=== PATIENT | male | born 1945 | race Caucasian/White ===

== ENCOUNTER 2022-12-13 09:47 | Inpatient (IN) ==
[2022-12-13] MEDS ORDERED: methylPREDNISolone 125 MG/2 ML VIAL IV STA (10:10)
[2022-12-13] MEDS ORDERED: ALBUT/IPRATROP 3MG/0.5MG NEB 3 ML VIAL NEB ONE (10:10)
--- NOTE | 2022-12-13 10:18 | Emergency Department Note ---
History of Present Illness General Chief Complaint: Shortness of Breath/Dyspnea Stated Complaint: COUGH, SHORTNESS OF BREATH, INSOMNIA Time Seen by Provider: 12/13/22 10:01 History of Present Illness Provider Complaint: shortness of breath and cough Onset (ago): day(s) (6) Consistency/Duration: + progressively worsening Maximum Pain Intensity: 5 Relieved By: + nothing Exacerbated By: + exertion and + coughing Context: + recent illness Associated symptoms: + fever, + cough, + wheezing, + sputum production and + chest congestion; no chest pain, no pain with inspiration, no hemoptysis or no rash Related Data Home oxygen amount: none Home Medications Medication Instructions Recorded Confirmed Type aspirin 81 mg tablet,delayed 81 mg PO QPM 03/17/19 12/13/22 History release (Aspir-) diphenoxylate-atropine 2.5 1 tab PO Q6H PRN diarrhea #120 tabs 10/20/19 12/13/22 Rx mg-0.025 mg tablet Auto Titrating CPAP #1 ea 10/21/21 12/11/22 Rx albuterol sulfate 90 mcg/actuation 1 - 2 inh inhalation QID #18 grams 12/02/21 12/13/22 Rx aerosol inhaler glipizide 5 mg tablet 5 mg PO BID #180 tabs 12/29/21 12/13/22 Rx pen needle, diabetic 32 gauge x #100 ea 01/28/22 12/11/22 Rx 5/32" CPAP Machine #1 ea 04/30/22 12/11/22 Rx clopidogrel 75 mg tablet (Plavix) 75 mg PO DAILY #90 tabs 07/22/22 12/13/22 Rx metformin 500 mg tablet 1,000 mg PO BID #120 tabs 08/03/22 12/13/22 Rx amlodipine 10 mg tablet 10 mg PO QAM Hypertension #90 tabs 09/01/22 12/13/22 Rx atorvastatin 40 mg tablet 40 mg PO PM #90 tabs 09/01/22 12/13/22 Rx lisinopril 40 mg tablet 40 mg PO DAILY #90 tabs 09/14/22 12/13/22 Rx insulin aspart U-100 100 unit/mL 19 unit (0.19 mL) subcut TID #15 mL 10/16/22 12/13/22 Rx (3 mL) subcutaneous pen (Novolog FlexPen U-100 Insulin aspart) hydrochlorothiazide 12.5 mg tablet 12.5 mg PO TID #90 tabs 10/19/22 12/13/22 Rx blood sugar diagnostic (OneTouch See Rx Instructions .Route 10/26/22 12/11/22 Rx Ultra Test strips) .COMPLEX #200 ea insulin glargine U-300 conc 300 54 unit (0.18 mL) subcut .qhs #3 mL 11/10/22 12/13/22 Rx unit/mL (3 mL) subcutaneous pen (Toujeo Max U-300 SoloStar) tamsulosin 0.4 mg capsule (Flomax) 0.8 mg PO QPM #180 caps 11/23/22 12/13/22 Rx atenolol 25 mg tablet 25 mg PO QAM #90 tabs 12/01/22 12/13/22 Rx doxycycline hyclate 100 mg capsule 100 mg PO BID 7 days #14 caps 12/11/22 12/13/22 Rx erythromycin 5 mg/gram (0.5 %) eye 1 applic ophthalmic (eye) Q6H 7 12/11/22 12/13/22 Rx ointment days #3.5 grams Allergies Allergy/AdvReac Type Severity Reaction Status Date / Time amoxicillin [From Augmentin] AdvReac Unknown GI upset Verified 12/11/22 15:39 clavulanic acid AdvReac Unknown GI upset Verified 12/11/22 15:39 [From Augmentin] Past Med/Surg History Medical History Bowel incontinence BPH (benign prostatic hyperplasia) Cancer COLO-RECTAL Cardiac murmur A CHILD Chronic diarrhea Coronary artery disease s/p cath x2, 3 stents Hyperlipidemia Kidney stones HX Osteoarthritis Surgical History History of bowel resection WITH ILEOSTOMY-CHEMO/RADIATION 2010 History of cardiac cath 11/2016 1 STENT 05/2017 2 STENTS-F/U DR CHACON History of herniorrhaphy History of reversal of ileostomy History of total hip arthroplasty LEFT History of vascular access device PORT PLACEMENT AND REMOVAL Previous back surgery LOWER BACK Status post insertion of spinal cord stimulator FOR BOWEL [id number] WILL BRING REMOTE Family History Son Family history of diabetes mellitus Mother Family history of diabetes mellitus Sister Breast cancer Denies family history of Ovarian cancer Prostate cancer Myocardial infarction Colorectal cancer Social History Smoking Status: Never smoker Second Hand Exposure: No; Do You Dip or Chew Tobacco: No; Hx Alcohol Use: No Hx Substance Use: No Preferred Language: Thai Communication Ability: Effective Visual Impairment: No Limitations Hearing Ability: Hard of Hearing Book Packer Required: No Beliefs That Will Affect Care: None marital status: Current Living Situation: Spouse current occupational status: retired Feels Safe at Home: Yes Childhood Exposure to Second-Hand Smoke: Yes Diet: regular Diet Comment: regular Dental Care, Regularly: No Physical Activity Frequency: Does not Exercise Seatbelt Use: always Sunscreen Use: No Assistive Devices: CPAP, Glasses and Hearing Aid - Left Physical Exam Vital Signs: Vital Signs - 24 hr 12/13/22 09:53 12/13/22 10:07 12/13/22 10:08 Temperature 36.6 C Temperature Source Oral Pulse Rate 76 Pulse Rate [Apical ] 82 Pulse Rhythm Pulse Rhythm [Apic al] Respiratory Rate 30 H 35 H Respiratory Effort / Characteristics Respiratory Depth Respiratory Patter n Blood Pressure 125/70 Blood Pressure [Ri ght Arm] 142/74 H Blood Pressure Monika n 88 Blood Pressure Monika n [Right Arm] 96 Blood Pressure Pos ition [Right Arm] Pulse Oximetry 90 86 L 92 Oxygen Delivery Me thod Room Air Nasal Cannula Nasal Cannula Oxygen Flow Rate 0 4 Fraction of Inspir ed Oxygen SaO2/FiO2 Ratio Sepsis New/Unexpla ined Change in Men rylee Status No Sepsis Action Take n by Nursing No Action Required Oxygen Flow Rate - Titration 4 Pulse Oximetry Pos t Tiitration 93 12/13/22 10:17 12/13/22 10:40 12/13/22 10:40 Temperature Temperature Source Pulse Rate 73 82 Pulse Rate [Apical ] Pulse Rhythm Regular Pulse Rhythm [Apic al] Respiratory Rate 32 H Respiratory Effort / Characteristics Spontaneous Labore d Respiratory Depth Deep Respiratory Patter n Regular Blood Pressure Blood Pressure [Ri ght Arm] Blood Pressure Monika n Blood Pressure Monika n [Right Arm] Blood Pressure Pos ition [Right Arm] Pulse Oximetry 97 Oxygen Delivery Me thod Nasal Cannula Oxygen Flow Rate 4 Fraction of Inspir ed Oxygen SaO2/FiO2 Ratio Sepsis New/Unexpla ined Change in Men rylee Status Sepsis Action Take n by Nursing Oxygen Flow Rate - Titration Pulse Oximetry Pos t Tiitration 12/13/22 11:03 12/13/22 11:52 12/13/22 11:56 Temperature Temperature Source Pulse Rate 83 Pulse Rate [Apical ] 89 83 Pulse Rhythm Pulse Rhythm [Apic al] Respiratory Rate 45 H 28 H 27 H Respiratory Effort / Characteristics Spontaneous Grunti ng Labored Short o f Breath Spontaneous Labore d Short of Breath Spontaneous Labore d Respiratory Depth Deep Deep Deep Respiratory Patter n Tachypnea Tachypnea Tachypnea Blood Pressure Blood Pressure [Ri ght Arm] 134/68 122/61 Blood Pressure Monika n Blood Pressure Monika n [Right Arm] 90 81 Blood Pressure Pos ition [Right Arm] Sitting Sitting Pulse Oximetry 93 98 96 Oxygen Delivery Me thod Nasal Cannula BiPAP Oxygen Flow Rate 4 Fraction of Inspir ed Oxygen 40 40 SaO2/FiO2 Ratio 240 Sepsis New/Unexpla ined Change in Men rylee Status Sepsis Action Take n by Nursing Oxygen Flow Rate - Titration Pulse Oximetry Pos t Tiitration 12/13/22 13:41 Temperature Temperature Source Pulse Rate Pulse Rate [Apical ] 76 Pulse Rhythm Pulse Rhythm [Apic al] Regular Respiratory Rate 24 Respiratory Effort / Characteristics Spontaneous Labore d Respiratory Depth Deep Respiratory Patter n Regular Blood Pressure Blood Pressure [Ri ght Arm] 121/71 Blood Pressure Monika n Blood Pressure Monika n [Right Arm] 87 Blood Pressure Pos ition [Right Arm] Pulse Oximetry 97 Oxygen Delivery Me thod BiPAP Oxygen Flow Rate Fraction of Inspir ed Oxygen 40 SaO2/FiO2 Ratio 242 Sepsis New/Unexpla ined Change in Men rylee Status Sepsis Action Take n by Nursing Oxygen Flow Rate - Titration Pulse Oximetry Pos t Tiitration Physical Exam: Physical Exam HENT: Exam performed. - Head: Normocephalic and atraumatic. EYES: Conjunctivae and EOM are normal. Right eye exhibits no discharge. Left eye exhibits no discharge. No scleral icterus. NECK: Normal range of motion. Neck supple. No JVD present. CV: Normal rate, regular rhythm, normal heart sounds and intact distal pulses. There is no peripheral edema. Palpable radial pulses bue. PULM/CHEST: Tachypneic. Wheezes bilaterally. No stridor. ABD: The abdomen is soft. There is no tenderness. NEURO: Motor and sensation grossly intact. SKIN: Diaphoretic. Course Course 1001: The patient was evaluated in room B8. A complete history and physical exam was performed Cardiac monitoring: An order was placed for continuous cardiac monitoring. The monitor shows a rate of 80 with sinus rhythm interpreted by me Patient hypoxic on room air tachypneic diaphoretic and wheezing. Patient was placed on supplemental oxygen via nasal cannula which improved his oxygen saturation. DuoNeb treatment hour-long and IV steroids ordered for the patient. 1036: Patient on hour-long DuoNeb treatment tolerating it well. 1056: Patient still tolerating hour-long DuoNeb lab his tachypnea appears to be improving and his lungs sound less tight. Chest x-ray formal read is a multifocal pneumonia. Chest x-ray reviewed by me does show bilateral groundglas s opacities multifocal pneumonia similar in appearance to COVID infections. Patient placed on respiratory precautions. Patient was on doxycycline outpatient will be started on Zosyn lactic acid and blood cultures also ordered on the patient. CTA of the chest will also be ordered on the patient. 1147: BioFire negative for any viral infections including COVID. Patient still tachypneic switched to BiPAP. Given the COVID is negative the patient is having diffuse expiratory wheezes CT of the chest was canceled. 1213: Patient's work of breathing and respiratory rate have improved with BiPAP. Lactic acid 4.2. 30 cc/kg normal saline bolus ordered for the patient. Vancomycin also ordered for the patient. VBG within normal limits. [facility] Dr. Alas will be notifed. 1401: Patient tolerating BiPAP well. Respiratory rate has improved significantly. Troponin was elevated at 45,089 BNP was elevated at 1237. Patient is not reporting any chest pain states he feels better with the BiPAP. EKG showed no STEMI. Patient mated to [facility]. Administered Medications Sodium Chloride (Nss 1000ml) 2,000 mls @ 999 mls/hr IV .Q2H1M ONE Stop: 12/13/22 14:09 Last Admin: 12/13/22 12:37 Dose: 999 mls/hr Documented By: MAIRA Vancomycin HCl 2,000 mg/ (Sodium Chloride) 540 mls @ 200 mls/hr IV NOW ONE Stop: 12/13/22 14:50 Last Admin: 12/13/22 13:40 Dose: 200 mls/hr Documented By: MAIRA Discontinued Medications Albuterol (Albut/Ipratrop 3mg/0.5mg Neb 3 Ml Vial) 12 ml NEB ONE ONE; Protocol Stop: 12/13/22 10:11 Last Admin: 12/13/22 10:39 Dose: 12 ml Documented By: BLANCHE Piperacillin Sod/Tazobactam Sod (Zosyn) 4.5 gm in 120 mls @ 240 mls/hr IV NOW ONE Stop: 12/13/22 11:21 Last Infusion: 12/13/22 12:33 Dose: 0 mls/hr Documented By: Admin: 12/13/22 11:54 Dose: 240 mls/hr Documented By: MAIRA Sodium Chloride (Nss 1000ml) 500 mls @ 999 mls/hr IV .Q31M ONE Stop: 12/13/22 12:39 Last Admin: 12/13/22 12:38 Dose: 999 mls/hr Documented By: MAIRA Methylprednisolone (Methylprednisolone 125 Mg/2 Ml Vial) 125 mg IV NOW STA Stop: 12/13/22 10:11 Last Admin: 12/13/22 10:39 Dose: 125 mg Documented By: BLANCHE Ondansetron HCl (Ondansetron Inj 2 Mg/Ml 2 Ml Vial) 4 mg IV NOW STA Stop: 12/13/22 10:53 Last Admin: 12/13/22 11:00 Dose: 4 mg Documented By: MAIRA Medical Decision Making Medical Records Attestation: I reviewed the patient's medical records. External medical records were reviewed. Patient was seen by his PCP 2 days ago and started on doxycycline and prednisone taper. At that time patient had normal pulmonary exam and no hypoxia per the PCPs note. Laboratory Data Attestation: I reviewed the patient's lab results. 12/13/22 11:19 Lab Results 12/13/22 12/13/22 12/13/22 Range/Units 11:19 11:45 11:50 WBC 15.35 H (4.8-10.8) K/ul RBC 4.19 L (4.70-6.10) M/uL Hgb 12.3 L (14.0-18.0) g/dl POC Hgb 12.6 L (14.0-18.0) g/dl Hct 37.0 L (42.0-52.0) % POC Hct 37 L (42-52) % MCV 88.3 (80.0-100.0) fL MCH 29.4 (25.0-34.0) pg MCHC 33.2 (32.0-36.0) g/dL RDW Std Deviation 44.3 (36.4-46.3) fL RDW Coeff of William 13.8 (11.5-14.5) % Plt Count 211 (130-400) K/uL MPV 10.0 (9.4-12.4) fL Immature Gran % (Auto) 0.3 % Neut % (Auto) 80.1 % Lymph % (Auto) 11.5 % [place] % (Auto) 7.8 % Eos % (Auto) 0.1 % Baso % (Auto) 0.2 % Neut # (Auto) 12.29 H (1.40-6.50) K/uL Lymph # (Auto) 1.77 (1.2-3.4) K/uL [place] # (Auto) 1.19 H (0.11-0.59) K/uL Eos # (Auto) 0.02 (0-0.50) K/uL Baso # (Auto) 0.03 (0-0.2) K/uL Immature Gran # (Auto) 0.05 (0.01-0.20) K/uL Platelet Estimate Normal (Normal) Echinocytes 1+ PT 11.5 (9.0-12.0) Seconds INR 1.1 (0.9-1.1) APTT 26.3 (21.0-31.0) Seconds PTT Ratio 0.9 VBG pH (7.36-7.41) VBG pCO2 (38-50) mmHg VBG pO2 mmHg VBG HCO3 mmol/L VBG O2 Saturation % VBG Base Excess mEq/L POC Sodium 134 L (135-144) mmol/L Sodium (136-145) mmol/L POC Potassium 4.1 (3.3-5.0) mmol/L Potassium (3.5-5.1) mmol/L POC Chloride 100 L (101-112) mmol/L Chloride (98-107) mmol/L Carbon Dioxide (21-32) mmol/L POC Total CO2 21 L (24-31) mmol/L Anion Gap (3-11) POC Anion Gap 18.0 (16-25) mmol/L POC BUN 41 H (7-18) mg/dl BUN (6-23) mg/dl Creatinine (0.6-1.4) mg/dl POC Creatinine 1.6 H (0.6-1.3) mg/dl Est Cr Clr Drug Dosing ml/min Est GFR ( Amer) ml/min Est GFR (Non-Af Amer) ml/min BUN/Creatinine Ratio (10-20) Glucose (70-99(Fasting)) mg/dl POC Glucose (other) 212 H (70-99) mg/dl Lactate (0.4-2.0) mmol/L Calcium (8.6-10.3) mg/dl POC Ioniz Calcium Holly 1.09 L (1.12-1.32) mmol/l Magnesium (1.7-2.4) mg/dl Troponin I High Sens (0-20) pg/ml B-Natriuretic Peptide (0-100) pg/ml Adenovirus (PCR) (NotDetected) B. pertussis DNA (PCR) (NotDetected) B.parapertussis DNA PCR (NotDetected) C. pneumoniae DNA (PCR) (NotDetected) Coronavirus OC43 (PCR) (NotDetected) Coronavirus HKU1 (PCR) (NotDetected) Coronavirus 229E (PCR) (NotDetected) SARS-CoV-2 (PCR) (NotDetected) Coronavirus NL63 (PCR) (NotDetected) Human Metapneumovir PCR (NotDetected) Influenza Type A (PCR) (NotDetected) Influenza Type B (PCR) (NotDetected) M. pneumoniae (PCR) (NotDetected) Parainfluenza 1 (PCR) (NotDetected) Parainfluenza 2 (PCR) (NotDetected) Parainfluenza 3 (PCR) (NotDetected) Parainfluenza 4 (PCR) (NotDetected) RSV (PCR) (NotDetected) Entero/Rhino (PCR) (NotDetected) 12/13/22 12/13/22 12/13/22 Range/Units 11:50 11:50 11:50 WBC (4.8-10.8) K/ul RBC (4.70-6.10) M/uL Hgb (14.0-18.0) g/dl POC Hgb (14.0-18.0) g/dl Hct (42.0-52.0) % POC Hct (42-52) % MCV (80.0-100.0) fL MCH (25.0-34.0) pg MCHC (32.0-36.0) g/dL RDW Std Deviation (36.4-46.3) fL RDW Coeff of William (11.5-14.5) % Plt Count (130-400) K/uL MPV (9.4-12.4) fL Immature Gran % (Auto) % Neut % (Auto) % Lymph % (Auto) % [place] % (Auto) % Eos % (Auto) % Baso % (Auto) % Neut # (Auto) (1.40-6.50) K/uL Lymph # (Auto) (1.2-3.4) K/uL [place] # (Auto) (0.11-0.59) K/uL Eos # (Auto) (0-0.50) K/uL Baso # (Auto) (0-0.2) K/uL Immature Gran # (Auto) (0.01-0.20) K/uL Platelet Estimate (Normal) Echinocytes PT (9.0-12.0) Seconds INR (0.9-1.1) APTT (21.0-31.0) Seconds PTT Ratio VBG pH 7.29 L (7.36-7.41) VBG pCO2 46 (38-50) mmHg VBG pO2 39 mmHg VBG HCO3 22 mmol/L VBG O2 Saturation 61.2 % VBG Base Excess -4.6 mEq/L POC Sodium (135-144) mmol/L Sodium 134 L (136-145) mmol/L POC Potassium (3.3-5.0) mmol/L Potassium 4.0 (3.5-5.1) mmol/L POC Chloride (101-112) mmol/L Chloride 98 (98-107) mmol/L Carbon Dioxide 22 (21-32) mmol/L POC Total CO2 (24-31) mmol/L Anion Gap 14 H (3-11) POC Anion Gap (16-25) mmol/L POC BUN (7-18) mg/dl BUN 48 H (6-23) mg/dl Creatinine 1.46 H (0.6-1.4) mg/dl POC Creatinine (0.6-1.3) mg/dl Est Cr Clr Drug Dosing 47.6 ml/min Est GFR ( Amer) 52.3 ml/min Est GFR (Non-Af Amer) 45.1 ml/min BUN/Creatinine Ratio 32.9 H (10-20) Glucose 208 H (70-99(Fasting)) mg/dl POC Glucose (other) (70-99) mg/dl Lactate (0.4-2.0) mmol/L Calcium 9.1 (8.6-10.3) mg/dl POC Ioniz Calcium Holly (1.12-1.32) mmol/l Magnesium 1.9 (1.7-2.4) mg/dl Troponin I High Sens 29201.9 H* (0-20) pg/ml B-Natriuretic Peptide 1237 H (0-100) pg/ml Adenovirus (PCR) (NotDetected) B. pertussis DNA (PCR) (NotDetected) B.parapertussis DNA PCR (NotDetected) C. pneumoniae DNA (PCR) (NotDetected) Coronavirus OC43 (PCR) (NotDetected) Coronavirus HKU1 (PCR) (NotDetected) Coronavirus 229E (PCR) (NotDetected) SARS-CoV-2 (PCR) (NotDetected) Coronavirus NL63 (PCR) (NotDetected) Human Metapneumovir PCR (NotDetected) Influenza Type A (PCR) (NotDetected) Influenza Type B (PCR) (NotDetected) M. pneumoniae (PCR) (NotDetected) Parainfluenza 1 (PCR) (NotDetected) Parainfluenza 2 (PCR) (NotDetected) Parainfluenza 3 (PCR) (NotDetected) Parainfluenza 4 (PCR) (NotDetected) RSV (PCR) (NotDetected) Entero/Rhino (PCR) (NotDetected) 12/13/22 12/13/22 Range/Units 11:50 Unknown WBC (4.8-10.8) K/ul RBC (4.70-6.10) M/uL Hgb (14.0-18.0) g/dl POC Hgb (14.0-18.0) g/dl Hct (42.0-52.0) % POC Hct (42-52) % MCV (80.0-100.0) fL MCH (25.0-34.0) pg MCHC (32.0-36.0) g/dL RDW Std Deviation (36.4-46.3) fL RDW Coeff of William (11.5-14.5) % Plt Count (130-400) K/uL MPV (9.4-12.4) fL Immature Gran % (Auto) % Neut % (Auto) % Lymph % (Auto) % [place] % (Auto) % Eos % (Auto) % Baso % (Auto) % Neut # (Auto) (1.40-6.50) K/uL Lymph # (Auto) (1.2-3.4) K/uL [place] # (Auto) (0.11-0.59) K/uL Eos # (Auto) (0-0.50) K/uL Baso # (Auto) (0-0.2) K/uL Immature Gran # (Auto) (0.01-0.20) K/uL Platelet Estimate (Normal) Echinocytes PT (9.0-12.0) Seconds INR (0.9-1.1) APTT (21.0-31.0) Seconds PTT Ratio VBG pH (7.36-7.41) VBG pCO2 (38-50) mmHg VBG pO2 mmHg VBG HCO3 mmol/L VBG O2 Saturation % VBG Base Excess mEq/L POC Sodium (135-144) mmol/L Sodium (136-145) mmol/L POC Potassium (3.3-5.0) mmol/L Potassium (3.5-5.1) mmol/L POC Chloride (101-112) mmol/L Chloride (98-107) mmol/L Carbon Dioxide (21-32) mmol/L POC Total CO2 (24-31) mmol/L Anion Gap (3-11) POC Anion Gap (16-25) mmol/L POC BUN (7-18) mg/dl BUN (6-23) mg/dl Creatinine (0.6-1.4) mg/dl POC Creatinine (0.6-1.3) mg/dl Est Cr Clr Drug Dosing ml/min Est GFR ( Amer) ml/min Est GFR (Non-Af Amer) ml/min BUN/Creatinine Ratio (10-20) Glucose (70-99(Fasting)) mg/dl POC Glucose (other) (70-99) mg/dl Lactate 4.2 H* (0.4-2.0) mmol/L Calcium (8.6-10.3) mg/dl POC Ioniz Calcium Holly (1.12-1.32) mmol/l Magnesium (1.7-2.4) mg/dl Troponin I High Sens (0-20) pg/ml B-Natriuretic Peptide (0-100) pg/ml Adenovirus (PCR) Not Detected (NotDetected) B. pertussis DNA (PCR) Not Detected (NotDetected) B.parapertussis DNA PCR Not Detected (NotDetected) C. pneumoniae DNA (PCR) Not Detected (NotDetected) Coronavirus OC43 (PCR) Not Detected (NotDetected) Coronavirus HKU1 (PCR) Not Detected (NotDetected) Coronavirus 229E (PCR) Not Detected (NotDetected) SARS-CoV-2 (PCR) Not Detected (NotDetected) Coronavirus NL63 (PCR) Not Detected (NotDetected) Human Metapneumovir PCR Not Detected (NotDetected) Influenza Type A (PCR) Not Detected (NotDetected) Influenza Type B (PCR) Not Detected (NotDetected) M. pneumoniae (PCR) Not Detected (NotDetected) Parainfluenza 1 (PCR) Not Detected (NotDetected) Parainfluenza 2 (PCR) Not Detected (NotDetected) Parainfluenza 3 (PCR) Not Detected (NotDetected) Parainfluenza 4 (PCR) Not Detected (NotDetected) RSV (PCR) Not Detected (NotDetected) Entero/Rhino (PCR) Not Detected (NotDetected) Imaging Data Attestation: I personally reviewed and interpreted this imaging study as follows: My Impression: Chest x-ray reviewed by me does show bilateral groundglass opacities multifocal pneumonia similar in appearance to COVID infections. Radiologist's Impression: Chest X-Ray 12/13/22 10:11 XR chest 1V portable CLINICAL HISTORY: sob TECHNIQUE: Single frontal radiograph of the chest was obtained. Comparison: None available at the time of this dictation. FINDINGS: No lines and tubes are seen. Cardiomegaly is noted. Multifocal airspace opacities, right greater than left. No evidence of pleural effusion or pneumothorax. IMPRESSION: Multifocal airspace opacities are compatible with pneumonia with or without superimposed aspiration. ACT 112: Negative or not required by law. Electronically signed by: Pablo Peralta M.D. 12/13/2022 10:44 AM ECG Data Attestation: I personally reviewed and interpreted this ECG as follows: Interpretation: Sinus arrhythmia with rate of 78. OR 206 QRS 128 QTc 474. Left bundle branch block present. First-degree AV block present. No significant change from the EKG in May 2022. [facility] Narrative 1001: The patient was evaluated in room B8. A complete history and physical exam was performed Cardiac monitoring: An order was placed for continuous cardiac monitoring. The monitor shows a rate of 80 with sinus rhythm interpreted by me Patient hypoxic on room air tachypneic diaphoretic and wheezing. Patient was placed on supplemental oxygen via nasal cannula which improved his oxygen saturation. DuoNeb treatment hour-long and IV steroids ordered for the patient. 1036: Patient on hour-long DuoNeb treatment tolerating it well. 1056: Patient still tolerating hour-long DuoNeb lab his tachypnea appears to be improving and his lungs sound less tight. Chest x-ray formal read is a multifocal pneumonia. Chest x-ray reviewed by me does show bilateral groundglass opacities multifocal pneumonia similar in appearance to COVID infections. Patient placed on respiratory precautions. Patient was on doxycycline outpatient will be started on Zosyn lactic acid and blood cultures also ordered on the patient. CTA of the chest will also be ordered on the patient. 1147: BioFire negative for any viral infections including COVID. Patient still tachypneic switched to BiPAP. Given the COVID is negative the patient is having diffuse expiratory wheezes CT of the chest was canceled. 1213: Patient's work of breathing and respiratory rate have improved with BiPAP. Lactic acid 4.2. 30 cc/kg normal saline bolus ordered for the patient. Vancomycin also ordered for the patient. VBG within normal limits. [facility] Dr. Alas will be notifed. 1401: Patient tolerating BiPAP well. Respiratory rate has improved sign ificantly. Troponin was elevated at 45,089 BNP was elevated at 1237. Patient is not reporting any chest pain states he feels better with the BiPAP. EKG showed no STEMI. Patient mated to [facility]. Impression & Plan Hypoxia, Multifocal pneumonia, Sepsis Critical Care Time Critical Care Time: Yes Total Critical Care Time: 120 I have personally spent greater than 120 minutes of critical care time in the direct management of this patient. This includes bedside care, interpretation of diagnostic studies, and testing, discussion with consultants, patient, and family members, and other required patient management activities. This 120 minutes is in excess of all separately billable procedures. Discharge Plan Visit Data Chief Complaint: Shortness of Breath/Dyspnea Stated Complaint: COUGH, SHORTNESS OF BREATH, INSOMNIA ED Provider: Alexy Madera Discharge Problem: Hypoxia, Multifocal pneumonia, Sepsis Patient Disposition: Admitted As Inpatient Forms Stand Alone Forms: My [facility] Prescriptions Prescriptions: No Action diphenoxylate-atropine 2.5-0.025 mg tablet 1 tab PO Q6H PRN (Reason: diarrhea) Qty: 120 1RF albuterol sulfate 90 mcg/actuation HFA aerosol inhaler 1 - 2 inh INH QID Qty: 18 2RF glipizide 5 mg tablet 5 mg PO BID Qty: 180 3RF (DME) pen needle, diabetic 32 gauge x 5/32" needle See Rx Instructions .ROUTE .MEDSUPPLY Qty: 100 1RF Rx Instructions: As directed clopidogrel [Plavix] 75 mg tablet 75 mg PO DAILY Qty: 90 3RF metformin 500 mg tablet 1,000 mg PO BID Qty: 120 5RF atorvastatin 40 mg tablet 40 mg PO PM Qty: 90 1RF amlodipine 10 mg tablet 10 mg PO QAM Qty: 90 1RF lisinopril 40 mg tablet 40 mg PO DAILY Qty: 90 1RF insulin aspart U-100 [Novolog FlexPen U-100 Insulin] 100 unit/mL (3 mL) insulin pen 19 unit subcut TID Qty: 15 3RF hydrochlorothiazide 12.5 mg tablet 12.5 mg PO TID Qty: 90 5RF OneTouch Ultra Test Strip See Rx Instructions .ROUTE .COMPLEX Qty: 200 2RF Dose Instruction: USE 1 STRIP TO CHECK GLUCOSE TWICE DAILY Rx Instructions: USE 1 STRIP TO CHECK GLUCOSE TWICE DAILY Toujeo Max U-300 SoloStar 300 unit/mL (3 mL) insulin pen 54 unit subcut .qhs Qty: 3 11RF tamsulosin [Flomax] 0.4 mg capsule 0.8 mg PO QPM Qty: 180 5RF atenolol 25 mg tablet 25 mg PO QAM Qty: 90 1RF (DME) Auto Titrating CPAP Misc See Rx Instructions .Route Qty: 1 0RF Rx Instructions: As directed (DME) CPAP Machine Misc .Route Qty: 1 0RF Rx Instructions: CPAP 11 cmH2O, interface fit patient comfort, heated modification, download compliance capabilities, [facility] care in [place] aspirin [Aspir-81] 81 mg tablet,delayed release (DR/EC) 81 mg PO QPM doxycycline hyclate 100 mg capsule 100 mg PO BID 7 Days Qty: 14 0RF erythromycin 5 mg/gram (0.5 %) ointment 1 applic ophthalmic (eye) Q6H 7 Days Qty: 3.5 0RF Rx Instructions: apply 1cm ribbon in eye(s) 4 times daily Referrals Referrals: Bear Brooks DO [Primary Care Provider] - Sepsis Qualifiers: Sepsis type: sepsis due to unspecified organism Sepsis acute organ dysfunction status: unspecified Qualified Code(s): A41.9 - Sepsis, unspecified organism
--- NOTE | 2022-12-13 10:45 | XRay Report ---
XR chest 1V portable CLINICAL HISTORY: sob TECHNIQUE: Single frontal radiograph of the chest was obtained. Comparison: None available at the time of this dictation. FINDINGS: No lines and tubes are seen. Cardiomegaly is noted. Multifocal airspace opacities, right greater than left. No evidence of pleural effusion or pneumothorax. IMPRESSION: Multifocal airspace opacities are compatible with pneumonia with or without superimposed aspiration. ACT 112: Negative or not required by law. Electronically signed by: Pablo Peralta M.D. 12/13/2022 10:44 AM
[2022-12-13] MEDS ORDERED: PIPERACILLIN/TAZOBACTAM 4.5 GM/120 ML BAG IV ONE (10:52)
[2022-12-13] MEDS ORDERED: ONDANSETRON INJ 2 MG/ML 2 ML VIAL IV STA (10:52)
[2022-12-13 11:41] LABS: Adenovirus PCR Not Detected (NotDetected); Bordetella parapertussis PCR Not Detected (NotDetected); Bordetella pertussis PCR Not Detected (NotDetected); Chlamydia pneumoniae PCR Not Detected (NotDetected); Coronavirus 229E PCR Not Detected (NotDetected); Coronavirus CoV-2 (COVID19)PCR Not Detected (NotDetected); Coronavirus HKU1 PCR Not Detected (NotDetected); Coronavirus NL63 PCR Not Detected (NotDetected); Coronavirus OC43PCR Not Detected (NotDetected); Human Metapneumovirus PCR Not Detected (NotDetected); Influenza A PCR Not Detected (NotDetected); Influenza B PCR Not Detected (NotDetected); Mycoplasma pneumoniae PCR Not Detected (NotDetected); Parainfluenza Virus 1 PCR Not Detected (NotDetected); Parainfluenza Virus 2 PCR Not Detected (NotDetected); Parainfluenza Virus 3 PCR Not Detected (NotDetected); Parainfluenza Virus 4 PCR Not Detected (NotDetected); Respiratory Syncytial VirusPCR Not Detected (NotDetected); Rhinovirus/Enterovirus PCR Not Detected (NotDetected)
[2022-12-13 11:58] LABS: iSTAT Creatinine 1.6 mg/dl (0.6-1.3); iSTAT Hemoglobin 12.6 g/dl (14.0-18.0); iSTAT Ionized Calcium 1.09 mmol/l (1.12-1.32); iSTAT Potassium 4.1 mmol/L (3.3-5.0)
[2022-12-13 12:04] LABS: Hemoglobin 12.3 g/dl (14.0-18.0); Mean Corpuscular Hemoglobin 29.4 pg (25.0-34.0); Mean Corpuscular Hgb Conc 33.2 g/dL (32.0-36.0); Mean Corpuscular Volume 88.3 fL (80.0-100.0); Platelet Count 211 K/uL (130-400); RDW Coefficient of Variation 13.8 % (11.5-14.5); RDW Standard Deviation 44.3 fL (36.4-46.3); Red Blood Count 4.19 M/uL (4.70-6.10); White Blood Count 15.35 K/ul (4.8-10.8)
[2022-12-13 12:05] LABS: Basophils # (auto) 0.03 K/uL (0-0.2); Basophils % (auto) 0.2 %; Echinocytes 1+; Eosinophils # (auto) 0.02 K/uL (0-0.50); Eosinophils % (auto) 0.1 %; Immature Granulocytes # (auto) 0.05 K/uL (0.01-0.20); Immature Granulocytes % (auto) 0.3 %; Lymphocytes # (auto) 1.77 K/uL (1.2-3.4); Lymphocytes % (auto) 11.5 %; Monocytes # (auto) 1.19 K/uL (0.11-0.59); Monocytes % (auto) 7.8 %; Neutrophils # (auto) 12.29 K/uL (1.40-6.50); Neutrophils % (auto) 80.1 %; Platelet Estimate Normal (Normal)
[2022-12-13 12:06] LABS: Base Excess VBG -4.6 mEq/L; HCO3 VBG 22 mmol/L; Oxygen Saturation VBG 61.2 %; PCO2 VBG 46 mmHg (38-50); PO2 VBG 39 mmHg; pH VBG 7.29 (7.36-7.41)
[2022-12-13] MEDS ORDERED: VANCOMYCIN CONSULT ACTIVE PRN (12:09)
[2022-12-13] MEDS ORDERED: SODIUM CHLORIDE 0.9% 1000ML 500 ML IV ONE (12:09)
[2022-12-13] MEDS ORDERED: SODIUM CHLORIDE 0.9% 1000ML 2,000 ML IV ONE (12:09)
[2022-12-13] MEDS ORDERED: VANCOMYCIN HCL 2,000 MG in SODIUM CHLORIDE 0.9% 500 ML IV ONE (12:09)
--- NOTE | 2022-12-13 12:20 | History & Physical Report ---
Date of Service December 13, 2022 Assessment & Plan (1) Hypoxia: Plan: Currently on BIPAP Repeat VBG now then q4H May be able to come off since had hour long nebulizer treatment given in ER (2) Elevated troponin: Plan: [place] [address] Trend troponins CAD Stents x2 2018 Elevated lactate 4.2 x 2 BNP 1200 STAT echo Admit to PCU Continue ASA and Plavix Dr Parra spoke in detail with Dr Mario Aleman with a bolus CT Chest CTAP abdomen (3) Multifocal pneumonia: Plan: - Cefepime 2gm BID - await expectorated sputum, procal and nasal MRSA, may be able to deescalate to rocephin in AM (4) Sepsis: Plan: Admission see above repeat Lactate (5) Coronary artery disease: Plan: Chronic and stable follows with Dr Taylor BURNHMA 2016 (6) KIANNA on CPAP: Plan: Chronic stable continue night CPAP (7) Benign essential hypertension: Plan: Chronic and stable Continue Amlodipine, Atenolol, HCTZ (8) Hyperlipidemia: Plan: Chronic and stable Continue Atorvastatin 40mg Last lipids November 2022 (9) BPH (benign prostatic hyperplasia): Plan: Chronic and stable Continue Flomax (10) Diabetes mellitus type 2, insulin dependent: Plan: - Last HgbA1C 7.3 in November - Stress dose (previous prednisone at home and IV solumedrol in ER) - Pharmacy for glycemic consult (11) Dysphagia: Plan: - Speech eval - may need eventual barium swallow/GI eval -Soft easy to chew diabetic diet ordered -aspiration precautions History of Present Illness Chief Complaint: SOB and cough Primary Care Provider: Bear Brooks DO Chaka Peña is a 77 year old male with a past medical of CAD(hx RCA TEJ x2 and LAD TEJ x 1 in 2016) on ASA and Plavix, HTN, HLD, Type II DM, BPH, KIANNA on CPAP, spinal cord stimulator and h/o rectal cancer (s/p ileostomy and reversal 2004) who presented to the ER today with complaints of cough and SOB. Patient was recently evaluated at his PCP office and rx TCN 100BID for 14 days, prednisone taper and erythromycin ointment for a URI and conjunctivitis. Patient tells me he has had fatigue and decreased appetite x a few weeks and for the past week has had increasing SOB, and productive cough. He denies any unintentional weight loss, chest pain or dyspnea. His sone was ill recently with sinusitis. He states the erythromycin ointment resolved his conjunctivitis and the doxy he only took one days worth. He states the prednisone made him not be able to sleep and increased his BS over 500 and he felt worse. Patient denies any choking while eating but does admit to occasional dysphagia, but no bolus arrest. He denies any history of CHF and follows with Dr Vazquez for cardiology. Patient was evaluated in the ER and found to have an elevated lactate of 4.2, leukocytosis 15 (previously was on steroids), tachypneic, and hypoxic and saturating on RA upon admission at 86% and currently o 4L and saturating at 97%. Currently patient is on Bipap and asking to be taken off. He had a VBG earlier and will repeat this now. His CXR revealed multifocal airspace opacities comparable with pneumonia with or without superimposed aspiration. After evaluating patient his troponin returned and was elevated over 45,000 and his BNP was 1200. Reassessed patient and he denies any chest pain, dyspnea or diaphoresis. He does still have cough and SOB. Repeat Lactate is still 4.2. Added STAT Echo and changed admission to PCU Dr Parra spoke with Dr Martin Allergies Allergy/AdvReac Type Severity Reaction Status Date / Time amoxicillin [From Augmentin] AdvReac Unknown GI upset Verified 12/11/22 15:39 clavulanic acid AdvReac Unknown GI upset Verified 12/11/22 15:39 [From Augmentin] Home Medications Medication Instructions Recorded Confirmed Type aspirin 81 mg tablet,delayed 81 mg PO QPM 03/17/19 12/13/22 History release (Aspir-) diphenoxylate-atropine 2.5 1 tab PO Q6H PRN diarrhea #120 tabs 10/20/19 12/13/22 Rx mg-0.025 mg tablet Auto Titrating CPAP #1 ea 10/21/21 12/11/22 Rx albuterol sulfate 90 mcg/actuation 1 - 2 inh inhalation QID #18 grams 12/02/21 12/13/22 Rx aerosol inhaler glipizide 5 mg tablet 5 mg PO BID #180 tabs 12/29/21 12/13/22 Rx pen needle, diabetic 32 gauge x #100 ea 01/28/22 12/11/22 Rx 5/32" CPAP Machine #1 ea 04/30/22 12/11/22 Rx clopidogrel 75 mg tablet (Plavix) 75 mg PO DAILY #90 tabs 07/22/22 12/13/22 Rx metformin 500 mg tablet 1,000 mg PO BID #120 tabs 08/03/22 12/13/22 Rx amlodipine 10 mg tablet 10 mg PO QAM Hypertension #90 tabs 09/01/22 12/13/22 Rx atorvastatin 40 mg tablet 40 mg PO PM #90 tabs 09/01/22 12/13/22 Rx lisinopril 40 mg tablet 40 mg PO DAILY #90 tabs 09/14/22 12/13/22 Rx insulin aspart U-100 100 unit/mL 19 unit (0.19 mL) subcut TID #15 mL 10/16/22 12/13/22 Rx (3 mL) subcutaneous pen (Novolog FlexPen U-100 Insulin aspart) hydrochlorothiazide 12.5 mg tablet 12.5 mg PO TID #90 tabs 10/19/22 12/13/22 Rx blood sugar diagnostic (OneTouch See Rx Instructions .Route 10/26/22 12/11/22 Rx Ultra Test strips) .COMPLEX #200 ea insulin glargine U-300 conc 300 54 unit (0.18 mL) subcut .qhs #3 mL 11/10/22 12/13/22 Rx unit/mL (3 mL) subcutaneous pen (Toujeo Max U-300 SoloStar) tamsulosin 0.4 mg capsule (Flomax) 0.8 mg PO QPM #180 caps 11/23/22 12/13/22 Rx atenolol 25 mg tablet 25 mg PO QAM #90 tabs 12/01/22 12/13/22 Rx doxycycline hyclate 100 mg capsule 100 mg PO BID 7 days #14 caps 12/11/22 12/13/22 Rx erythromycin 5 mg/gram (0.5 %) eye 1 applic ophthalmic (eye) Q6H 7 12/11/22 12/13/22 Rx ointment days #3.5 grams Past Med/Surg History Medical History Bowel incontinence BPH (benign prostatic hyperplasia) Cancer COLO-RECTAL Cardiac murmur A CHILD Chronic diarrhea Coronary artery disease s/p cath x2, 3 stents Hyperlipidemia Kidney stones HX Osteoarthritis Surgical History History of bowel resection WITH ILEOSTOMY-CHEMO/RADIATION 2010 History of cardiac cath 11/2016 1 STENT 05/2017 2 STENTS-F/U DR VAZQUEZ History of herniorrhaphy History of reversal of ileostomy History of total hip arthroplasty LEFT History of vascular access device PORT PLACEMENT AND REMOVAL Previous back surgery LOWER BACK Status post insertion of spinal cord stimulator FOR BOWEL [id number]-OF WILL BRING REMOTE Family History Son Family history of diabetes mellitus Mother Family history of diabetes mellitus Sister Breast cancer Denies family history of Ovarian cancer Prostate cancer Myocardial infarction Colorectal cancer Social History Smoking Status: Never smoker Second Hand Exposure: No; Do You Dip or Chew Tobacco: No; Hx Alcohol Use: No Hx Substance Use: No Preferred Language: Persian Communication Ability: Effective Visual Impairment: No Limitations Hearing Ability: Hard of Hearing Order Processor Required: No Beliefs That Will Affect Care: None marital status: Current Living Situation: Family current occupational status: retired Other Information That Helps Us Care for You: No Feels Safe at Home: Yes Safety Concerns: Feels Safe At This Time Childhood Exposure to Second-Hand Smoke: Yes Diet: regular Diet Comment: regular Dental Care, Regularly: No Physical Activity Frequency: Does not Exercise Seatbelt Use: always Sunscreen Use: No Assistive Devices: Cane Review of Systems Constitutional: + fatigue and + weakness; no fever, no chills and no sweats Eyes: hx of conjunctivitis treated recently and patient states has improved Ear, Nose, Mouth, Throat: + nasal congestion; no ear pain, no dizziness and no facial pain Respiratory: + cough, + chest congestion and + change in sputum; no dyspnea and no hemoptysis Cardiovascular: no chest pain, no dyspnea, no orthopnea, no syncope and no calf pain Gastrointestinal: no abdominal pain, no early satiety, no nausea and no v omiting Genitourinary: no dysuria, no urinary frequency or no urinary hesitancy Integumentary: no rash, no lesions and no new lesions Neurologic: no gait abnormality, no falls, no localized weakness, no paralysis and no syncope Psychiatric: + change in appetite; no behavioral changes, no hopelessness, no confusion and no hallucinations Endocrine: + fatigue; no polydipsia, no polyphagia and no polyuria Physical Exam Constitutional: WD/WN, vitals as above tachypneic Eyes: PERRL, conjunctivae normal, anicteric sclerae Neck: trachea midline, no thyromegaly Respiratory: upper respiratory coarse breath sounds with expiratory wheeze and fine rhonchi Cardiovascular: Rate/Rhythm: regular rate and regular rhythm Heart Sounds: normal S1 and normal S2 Extremities: normal capillary refill; no calf tenderness trace edema Gastrointestinal (Abdomen): normal bowel sounds, soft, nontender, no hepatosplenomegaly obese, round, reducible umbilical hernia Skin: no rashes, warm and dry Psychiatric: A+Ox3, euthymic affect Results & Data Results & Data Vital Signs (Past 12 Hours) Vital Signs Temp Pulse Pulse Resp BP BP Pulse Ox 12/13/22 11:56 83 27 H 122/61 96 12/13/22 11:52 83 28 H 98 12/13/22 11:03 89 45 H 134/68 93 12/13/22 10:40 82 32 H 97 12/13/22 10:17 73 12/13/22 10:08 82 35 H 142/74 H 92 12/13/22 10:07 86 L 12/13/22 09:53 36.6 C 76 30 H 125/70 90 O2 Del Method O2 Flow Rate FiO2 12/13/22 11:56 BiPAP 40 12/13/22 11:52 40 12/13/22 11:03 Nasal Cannula 4 12/13/22 10:40 Nasal Cannula 4 12/13/22 10:17 12/13/22 10:08 Nasal Cannula 4 12/13/22 10:07 Nasal Cannula 0 12/13/22 09:53 Room Air Laboratory Results Abnormal lab results 12/13/22 12/13/22 12/13/22 Range/Units 11:19 11:45 11:50 WBC 15.35 H (4.8-10.8) K/ul RBC 4.19 L (4.70-6.10) M/uL Hgb 12.3 L (14.0-18.0) g/dl POC Hgb 12.6 L (14.0-18.0) g/dl Hct 37.0 L (42.0-52.0) % POC Hct 37 L (42-52) % Neut # (Auto) 12.29 H (1.40-6.50) K/uL Rhea # (Auto) 1.19 H (0.11-0.59) K/uL VBG pH 7.29 L (7.36-7.41) POC Sodium 134 L (135-144) mmol/L POC Chloride 100 L (101-112) mmol/L POC Total CO2 21 L (24-31) mmol/L POC BUN 41 H (7-18) mg/dl POC Creatinine 1.6 H (0.6-1.3) mg/dl POC Glucose (other) 212 H (70-99) mg/dl Lactate (0.4-2.0) mmol/L POC Ioniz Calcium Holly 1.09 L (1.12-1.32) mmol/l 12/13/22 Range/Units 11:50 WBC (4.8-10.8) K/ul RBC (4.70-6.10) M/uL Hgb (14.0-18.0) g/dl POC Hgb (14.0-18.0) g/dl Hct (42.0-52.0) % POC Hct (42-52) % Neut # (Auto) (1.40-6.50) K/uL Rhea # (Auto) (0.11-0.59) K/uL VBG pH (7.36-7.41) POC Sodium (135-144) mmol/L POC Chloride (101-112) mmol/L POC Total CO2 (24-31) mmol/L POC BUN (7-18) mg/dl POC Creatinine (0.6-1.3) mg/dl POC Glucose (other) (70-99) mg/dl Lactate 4.2 H* (0.4-2.0) mmol/L POC Ioniz Calcium Holly (1.12-1.32) mmol/l Diagnostic Findings Chest X-Ray 12/13/22 10:11 XR chest 1V portable CLINICAL HISTORY: sob TECHNIQUE: Single frontal radiograph of the chest was obtained. Comparison: None available at the time of this dictation. FINDINGS: No lines and tubes are seen. Cardiomegaly is noted. Multifocal airspace opacities, right greater than left. No evidence of pleural effusion or pneumothorax. IMPRESSION: Multifocal airspace opacities are compatible with pneumonia with or without superimposed aspiration. ACT 112: Negative or not required by law. Electronically signed by: Pablo Peralta M.D. 12/13/2022 10:44 AM Supervising Physician Co-Signing Physician Notes Patient seen and examined, chart reviewed, case discussed with Vanesa Mukherjee PA-C and I agree with the assessment and plan as above except as otherwise noted Labs and images reviewed Chaka was seen at the bedside & several times on reevaluation. Patient is with cardiac history as noted above. He presented for several days of increasing shortness of breath, fatigue, and productive cough. Does endorse feeling feverish in the last 2 days and also had conjunctivitis. He was placed on outpatient erythromycin for his conjunctivitis and doxycycline plus prednisone for suspected URI. At time of ER assessment patient has continued to feel short of breath and easily fatigued. He reports he has not any chest pain or chest pressure at any point; however with his last 2 catheterizations and heart attacks he notes he never had chest pain with these they were caught incidentally on other work-ups. At bedside patient is with diffuse rhonchi, bibasilar crackles, and is diminished in the bases. Patient appeared more comfortable on BiPAP after initial evaluation was conversing normally Initially admitted for treatment of suspected multifocal pneumonia based on presenting symptoms and x-ray. Initial EKG without significant change from prior, some interference? From stimulator. Troponin from admission subsequently returned elevated at 45,000. Patient again denies chest pain at any point. Stat echo was obtained and showed moderate to severely reduced LVSF EF 25-30% with severe global hypokinesis, akinetic apex, dyskinesias of the anterior and anteroseptal portions, overall appeared more fluid overloaded than hypovolemic. in addition after receiving first liter of fluid patient developed worsened lower extremity edema. Due to suspicion for silent PR/cardiogenic failure Case was reviewed with interventional cardiology agreed with progression to cardiac catheterization. RVSP was >60mmHg. BNP was elevated at over 1200. Additional fluids were deferred at time of admission due to concern for possible cardiogenic CHF. Patient's blood pressure did worsen and with increased tachycardia following first fluid bolus, dropped to 90 systolic map 64 with increased tachycardia; fluids were paused and blood pressure improved to 1 teens and heart rate down trended to 80s. Based on above, elevated BNP, and low EF 1 dose of Lasix was ordered for fluid overload. He was continued on antibiotics for pneumonia and converted from Zosyn/Vanco to cefepime Vanco on admission. Follow-up CTchest which was extended to A/P due to very high lactate did not show evidence of bowel ischemia, extensive groundglass and consolidative opacities were seen throughout the lungs consistent with pneumonia, additionally interlobar septal thickening suspicious for pulmonary edema bilateral pleural effusions consistent with heart failure were noted. Patient was tolerating BiPAP well and felt comfortable laying down and on 1 side while on BiPAP. Blood gas was with pH 7.3 normal bicarb/PCO2 incompletely compensated. VBG was trended. heart alert was called and patient was taken to Process Technician. Potassium was 4.1, magnesium 1.9. Goal 4.0/2.0. Troponin has been trended PG Care Time/CCT Total # of Minutes Spent Total Time Spent with Patient: Total time spent is greater than 50% in coordination of care (as documented) at patient's floor/unit and/or counseling patient: Coding Level of Care Code 31433 INT INP/OBS CARE 3/75MIN Diagnoses Hypoxia R09.02 Elevated troponin R77.8 Multifocal pneumonia J18.9 Sepsis A41.9 Sepsis acute organ dysfunction status: unspecified Sepsis type: sepsis due to unspecified organism Coronary artery disease I25.10 KIANNA on CPAP G47.33; Z99.89 Benign essential hypertension I10 Hyperlipidemia E78.5 BPH (benign prostatic hyperplasia) N40.0 Diabetes mellitus type 2, insulin dependent E11.9; Z79.4 Dysphagia R13.10 (4) Sepsis Sepsis acute organ dysfunction status: unspecified Sepsis type: sepsis due to unspecified organism Qualified Code(s): A41.9 - Sepsis, unspecified organism
[2022-12-13 12:27] LABS: BUN Creatinine Ratio 32.9 (10-20); Calcium 9.1 mg/dl (8.6-10.3); Creatinine Clr Calc Pharmacy 47.6 ml/min; Est GFR (African American) 52.3 ml/min; Est GFR (Non-African American) 45.1 ml/min; Magnesium 1.9 mg/dl (1.7-2.4)
[2022-12-13 12:39] LABS: INR 1.1 (0.9-1.1); Partial Thromboplastin Ratio 0.9; Partial Thromboplastin Time 26.3 Seconds (21.0-31.0); Prothrombin Time 11.5 Seconds (9.0-12.0)
[2022-12-13 13:15] LABS: Troponin I High Sensitivity 45084.9 pg/ml (0-20)
[2022-12-13 14:24] LABS: Base Excess VBG -5.5 mEq/L; HCO3 VBG 21 mmol/L; Oxygen Saturation VBG 78.2 %; PCO2 VBG 42 mmHg (38-50); PO2 VBG 47 mmHg
[2022-12-13] MEDS ORDERED: Heparin IV Adult Wt-Based Low-Dose WITH Bolus Protocol IV SCH (14:41)
[2022-12-13] MEDS ORDERED: HEPARIN SOD (PORCINE) 1000 UNIT/ML IV ONE (14:51)
[2022-12-13] MEDS ORDERED: HEPARIN SODIUM/DEXTROSE 25,000 UNITS/500 ML BAG IV SCH (15:00)
[2022-12-13] MEDS ORDERED: ETOMIDATE 2 MG/ML 20 ML VIAL IV ONE (16:12)
[2022-12-13] MEDS ORDERED: SUCCINYLCHOLINE CHLORIDE 20 MG/ML 10 ML VIAL IV ONE (16:12)
[2022-12-13] MEDS ORDERED: GLUCOSE 10 TAB/TUBE PO PRN (17:05)
[2022-12-13] MEDS ORDERED: CARBOHYDRATES FOR HYPOGLYCEMIA PO PRN (17:05)
[2022-12-13] MEDS ORDERED: GLUCAGON FOR INJ 1 MG VIAL SQ PRN (17:05)
[2022-12-13] MEDS ORDERED: hydroCHLOROthiazide 25 MG TAB PO SCH (17:05)
[2022-12-13] MEDS ORDERED: DEXTROSE 50% 50 ML SYRINGE IV PRN (17:05)
[2022-12-13] MEDS ORDERED: NITROGLYCERIN SL 0.4 MG/TAB TAB SL PRN (17:05)
[2022-12-13] MEDS ORDERED: FUROSEMIDE INJ 20 MG/2 ML VIAL IV ONE (17:05)
[2022-12-13] MEDS ORDERED: PHARMACY GLYCEMIC MGMT CONSULT PRN ×2 (17:05)
[2022-12-13] MEDS ORDERED: MoRPHine SULFATE 2 MG/ML CARP IV PRN (17:05)
[2022-12-13] MEDS ORDERED: GLUCOSE 40% GEL 15 GM TUBE PO PRN (17:05)
--- NOTE | 2022-12-13 17:06 | XCELERA ---
[id number]
[2022-12-13] MEDS: FUROSEMIDE 40 MG/4 ML VIAL IV ONE ×2 (17:08→17:54)
[2022-12-13] MEDS ORDERED: niCARdipine HCL INJ 2.5 MG/ML 10 ML AMP ONE (17:10)
[2022-12-13] MEDS ORDERED: fentaNYL citrate PF 100 MCG/2 ML VIAL ONE (17:10)
[2022-12-13] MEDS ORDERED: MIDAZOLAM HCL 1 MG/ML 2ML VIAL ONE ×2 (17:10→18:07)
[2022-12-13] MEDS ORDERED: HEPARIN (PORCINE) 1000 UNIT/ML 10 ML (CATH LAB USE ONLY) ONE (17:10)
[2022-12-13] MEDS ORDERED: NITROGLYCERIN/D5W 100MCG/ML 20ML SYR ONE (17:11)
--- NOTE | 2022-12-13 17:13 | CT Scan Report ---
CT abd pelvis wo con CLINICAL HISTORY: r/o bowel ischemia TECHNIQUE: Helical axial images of the abdomen and pelvis were obtained. Automated dose lowering tech niques and/or adjustment according to patient size were utilized for this exam. This exam was perfor med without intravenous contrast. CT DOSE: 2094.75 mGy.cm COMPARISON: None available at the time of this dictation. FINDINGS: Lower chest: For findings above the diaphragm, please see CT chest performed same day. Liver: Unremarkable. No focal lesions are seen. Gallbladder and biliary tree: Cholelithiasis is seen without evidence of cholecystitis. No intra- or extrahepatic biliary ductal dilation. Pancreas: Fatty replacement of the pancreas is seen. Spleen: Unremarkable. Adrenals: Nodularity of the adrenal glands is noted. Kidneys and ureters: Right exophytic renal cyst is seen. Bladder: Unremarkable. Reproductive organs: Prostatic calcifications are seen which may represent prior hemorrhage or granul omatous disease. Bowel: Diverticulosis is seen without evidence of diverticulitis. There is colonic resection near the rectum. The appendix is seen. A hiatal hernia is seen. Lymph nodes Retroperitoneal: Unremarkable. Pelvic: Unremarkable. Mesenteric: Unremarkable. Peritoneum: Calcifications are seen in the anterior pelvis. Vessels: Atherosclerotic calcifications are seen. Abdominal wall: Postsurgical changes are seen in the right abdominal wall. Bones: Left hip arthroplasty is seen. There is a neurostimulator with the battery pack in the right b uttocks. IMPRESSION: No evidence of ischemic colitis. Postsurgical changes and additional findings as above. ACT 112: Negative or not required by law. Electronically signed by: Pablo Peralta M.D. 12/13/2022 5:10 PM
--- NOTE | 2022-12-13 17:16 | CT Scan Report ---
CT chest diagnostic wo con CLINICAL HISTORY: AHRF, ?multifocal PNA vs pulm edema TECHNIQUE: Multidetector row helical CT of the chest was performed. Coronal and sagittal reformations were obtained. Automated dose lowering techniques and/or adjustment according to patient size were u tilized for this exam. Comparison: None available at the time of this dictation. FINDINGS: Lungs and pleura: Bilateral small pleural effusion is seen. Multifocal groundglass and consolidative opacities are seen. There is thickening of the interlobular septa. Heart and pericardium: Mitral annular calcifications are seen. Vessels: Moderate atherosclerotic changes in the aorta and coronary arteries. Mediastinum and constantino: Mesenteric lymph nodes measure 18 mm in diameter. Chest wall and lower neck: Unremarkable. Abdomen: For findings below the diaphragm, please refer to CT of the abdomen dated the same. Bones: Degenerative changes in the thoracic spine. IMPRESSION: Extensive groundglass and consolidative opacities are seen throughout the lungs which likely represen t pneumonia. Interlobular septal thickening may represent pulmonary edema. There are small bilateral pleural effusions. Follow-up to resolution is recommended. ACT 112: Negative or not required by law. Electronically signed by: Pablo Peralta M.D. 12/13/2022 5:15 PM
[2022-12-13] MEDS ORDERED: RAPID SEQUENCE INDUCTION BAG ONE (17:29)
[2022-12-13 17:50] LABS: Base Excess VBG -10.3 mEq/L; HCO3 VBG 19 mmol/L; Oxygen Saturation VBG 87.2 %; PCO2 VBG 56 mmHg (38-50); PO2 VBG 63 mmHg; pH VBG 7.14 (7.36-7.41)
--- NOTE | 2022-12-13 17:51 | Cardiology Consultation ---
Date of Consultation December 13, 2022 Assessment & Plan (1) Acute systolic heart failure: 2. NSTEMI 3. CADprior stents to LAD, RCA 2016 4. Type 2 diabetes 5. LIZETT Patient with progressive acute respiratory failure initially thought secondary to multifocal pneumonia now with evidence of acute heart failure. Reviewed patient's echocardiogram today which shows severe LV dysfunction with apical/LAD distribution wall motion abnormality. Echo suggestive of of elevated left and right-sided filling pressures and pulmonary hypertension. With patient's significantly elevated troponin, LAD distribution wall motion abnormality, acute heart failure and concern for possible low output state recommend proceeding with cardiac catheterization. Procedure discussed with patient prior to intubation and with his . Further recommendations pending findings. History of Present Illness Attending Physician: Moy Parra MD History of Present Illness Mr. Peña is a pleasant 77-year-old man with a history of coronary artery disease post prior stents to his LAD, RCA and acute respiratory failure in the setting of suspected ACS and acute heart failure. Patient seen urgently on telemetry floor after contacted by primary admitting team. Patient's coater operator is Dr. Vazquez. Prior stents in 2016. CAD diagnosed at that time in the setting preoperative evaluation prior to orthopedic surgery. Patient had no preceding chest pain. Other medical issues include type 2 diabetes, hypertension, dyslipidemia, KIANNA on CPAP, BPH. On arrival to floor patient appeared in respiratory distress, tachypneic diaphoretic BiPAP. Hemodynamically stable. He was able to voice that he had no chest pain and confirm parts of his history. Concern for progressive respiratory fatigue and ICU/ED called for elective intubation. Successfully intubated by Dr. Madera and seen by Dr. Flowers. Patient and confirm that he has been having upper respiratory symptoms for the preceding 3 days after contact with a sick family member. Started on antibiotics, prednisone by PCP 12/11. Progressively felt worse over the weekend with worsening shortness of breath, ongoing cough productive of mucus. Also had difficulty sleeping due to orthopnea. On arrival hypoxic and placed on BiPAP. ECG showed unchanged chronic left bundle branch block. Chest x-ray with diffuse opacities read as multifocal pneumonia. Started on broad-spectrum antibiotics. Later HS TropI noted elevated at 45,000. Lactate persistently elevated at 4. During all of this patient denied any chest pain. Allergies Allergy/AdvReac Type Severity Reaction Status Date / Time amoxicillin [From Augmentin] AdvReac Unknown GI upset Verified 12/11/22 15:39 clavulanic acid AdvReac Unknown GI upset Verified 12/11/22 15:39 [From Augmentin] Home Medications Medication Instructions Recorded Confirmed Type aspirin 81 mg tablet,delayed 81 mg PO QPM 03/17/19 12/13/22 History release (Aspir-) diphenoxylate-atropine 2.5 1 tab PO Q6H PRN diarrhea #120 tabs 10/20/19 12/13/22 Rx mg-0.025 mg tablet Auto Titrating CPAP #1 ea 10/21/21 12/11/22 Rx albuterol sulfate 90 mcg/actuation 1 - 2 inh inhalation QID #18 grams 12/02/21 12/13/22 Rx aerosol inhaler glipizide 5 mg tablet 5 mg PO BID #180 tabs 12/29/21 12/13/22 Rx pen needle, diabetic 32 gauge x #100 ea 01/28/22 12/11/22 Rx 5/32" CPAP Machine #1 ea 04/30/22 12/11/22 Rx clopidogrel 75 mg tablet (Plavix) 75 mg PO DAILY #90 tabs 07/22/22 12/13/22 Rx metformin 500 mg tablet 1,000 mg PO BID #120 tabs 08/03/22 12/13/22 Rx amlodipine 10 mg tablet 10 mg PO QAM Hypertension #90 tabs 09/01/22 12/13/22 Rx atorvastatin 40 mg tablet 40 mg PO PM #90 tabs 09/01/22 12/13/22 Rx lisinopril 40 mg tablet 40 mg PO DAILY #90 tabs 09/14/22 12/13/22 Rx insulin aspart U-100 100 unit/mL 19 unit (0.19 mL) subcut TID #15 mL 10/16/22 12/13/22 Rx (3 mL) subcutaneous pen (Novolog FlexPen U-100 Insulin aspart) hydrochlorothiazide 12.5 mg tablet 12.5 mg PO TID #90 tabs 10/19/22 12/13/22 Rx blood sugar diagnostic (OneTouch See Rx Instructions .Route 10/26/22 12/11/22 Rx Ultra Test strips) .COMPLEX #200 ea insulin glargine U-300 conc 300 54 unit (0.18 mL) subcut .qhs #3 mL 11/10/22 12/13/22 Rx unit/mL (3 mL) subcutaneous pen (Toujeo Max U-300 SoloStar) tamsulosin 0.4 mg capsule (Flomax) 0.8 mg PO QPM #180 caps 11/23/22 12/13/22 Rx atenolol 25 mg tablet 25 mg PO QAM #90 tabs 12/01/22 12/13/22 Rx doxycycline hyclate 100 mg capsule 100 mg PO BID 7 days #14 caps 12/11/22 12/13/22 Rx erythromycin 5 mg/gram (0.5 %) eye 1 applic ophthalmic (eye) Q6H 7 12/11/22 12/13/22 Rx ointment days #3.5 grams Patient History Medical History (Updated 12/13/22 @ 18:31 by Alfredo Flowers MD) Acute hypoxemic respiratory failure Acute systolic heart failure Bowel incontinence BPH (benign prostatic hyperplasia) Cancer COLO-RECTAL Cardiac murmur A CHILD Chronic diarrhea Coronary artery disease s/p cath x2, 3 stents Endotracheally intubated Hyperlipidemia Kidney stones HX Osteoarthritis Surgical History History of bowel resection WITH ILEOSTOMY-CHEMO/RADIATION 2010 History of cardiac cath 11/2016 1 STENT 05/2017 2 STENTS-F/U DR VAZQUEZ History of herniorrhaphy History of reversal of ileostomy History of total hip arthroplasty LEFT History of vascular access device PORT PLACEMENT AND REMOVAL Previous back surgery LOWER BACK Status post insertion of spinal cord stimulator FOR BOWEL [id number] WILL BRING REMOTE Family History Son Family history of diabetes mellitus Mother Family history of diabetes mellitus Sister Breast cancer Denies family history of Ovarian cancer Prostate cancer Myocardial infarction Colorectal cancer Social History Smoking Status: Never smoker Second Hand Exposure: No; Do You Dip or Chew Tobacco: No; Hx Alcohol Use: No Hx Substance Use: No Preferred Language: Armenian Communication Ability: Effective Visual Impairment: No Limitations Hearing Ability: Hard of Hearing [employer] Banker Required: No Beliefs That Will Affect Care: None marital status: Current Living Situation: Family current occupational status: retired Other Information That Helps Us Care for You: No Feels Safe at Home: Yes Safety Concerns: Feels Safe At This Time Childhood Exposure to Second-Hand Smoke: Yes Diet: regular Diet Comment: regular Dental Care, Regularly: No Physical Activity Frequency: Does not Exercise Seatbelt Use: always Sunscreen Use: No Assistive Devices: Cane Review of Systems Review of Systems: Unobtainable due to endotracheal tube Physical Exam Physical Exam: General: Tachypneic, respiratory distress, diaphoretic HEENT: Sclerae anicteric Lungs: Coarse breath sounds anteriorly with crackles Cardiac: Tachycardic, regular Vascular: 1+ radial pulses bilaterally Abdomen: Soft Extremities: Warm, trace bilateral edema Psych: Alert, oriented Results & Data Vital Signs (Past 12 Hours) Vital Signs Temp Pulse Pulse Resp BP BP Pulse Ox 12/13/22 17:29 120 H 12/13/22 17:00 12/13/22 16:35 98.1 F 104 H 40 H 132/74 94 12/13/22 16:44 12/13/22 16:41 84 30 H 98 12/13/22 14:36 71 12/13/22 13:41 76 24 121/71 97 12/13/22 11:56 83 27 H 122/61 96 12/13/22 11:52 83 28 H 98 12/13/22 11:03 89 45 H 134/68 93 12/13/22 10:40 82 32 H 97 12/13/22 10:17 73 12/13/22 10:08 82 35 H 142/74 H 92 12/13/22 10:07 86 L 12/13/22 09:53 97.9 F 76 30 H 125/70 90 O2 Del Method O2 Flow Rate FiO2 12/13/22 17:29 12/13/22 17:00 BiPAP 12/13/22 16:35 BiPAP 40 12/13/22 16:44 BiPAP 12/13/22 16:41 40 12/13/22 14:36 12/13/22 13:41 BiPAP 40 12/13/22 11:56 BiPAP 40 12/13/22 11:52 40 12/13/22 11:03 Nasal Cannula 4 12/13/22 10:40 Nasal Cannula 4 12/13/22 10:17 12/13/22 10:08 Nasal Cannula 4 12/13/22 10:07 Nasal Cannula 0 12/13/22 09:53 Room Air PG Care Time/CCT Total # of Minutes Spent Total Time Spent with Patient: Total time spent is greater than 50% in coordination of care (as documented) at patient's floor/unit and/or counseling patient: Coding Level of Care Code 26387 INT INP/OBS CARE 3/75MIN Diagnoses Acute systolic heart failure I50.21
[2022-12-13] MEDS ORDERED: FUROSEMIDE 40 MG/4 ML VIAL IV ONE ×2 (17:58→20:30)
[2022-12-13] MEDS ORDERED: PROPOFOL IV EMULSION 10 MG/ML 100 ML VIAL (CATH LAB USE ONLY) IV ONE (18:01)
--- NOTE | 2022-12-13 18:11 | Emergency Department Note ---
ED Visit Note Called to the floor to intubate the patient. Endotracheal Intubation Indication: Respiratory failure. The patient was on 100% oxygen via NRB prior to the procedure. Suction, airway equipment, RSI drugs, respiratory equipment, and appropriate personnel were prepared prior to the initiation of the procedure. A time out was taken. Induction was performed with etomidate 20 mg and succinylcholine 150 mg. After observing the clinical benefit of the medications, the airway was easily visualized utilizing a glidescope. A 8 size ETT tube was placed atraumatically to 24 cm using standard technique. The cuff inflated without signs of malfunction. There were bilateral breath sounds, positive colormetric change, no gastric sounds, a good capnography waveform. There were no complications. .
--- NOTE | 2022-12-13 18:16 | Critical Care Consultation ---
Date of Consultation December 13, 2022 Assessment & Plan (1) Acute hypoxemic respiratory failure: (2) Endotracheally intubated: (3) Hypoxia: (4) Acute systolic heart failure: (5) Elevated troponin: Plan 77-year-old obese male with a history of KIANNA on CPAP, extensive coronary artery disease, type 2 diabetes, hyperlipidemia and hypertension admitted due to acute systolic CHF and currently in acute hypoxemic respiratory failure requiring mechanical ventilation. He was urgently sent to the [employer] [facility]. Neurologic: Avoid negative inotropic agents. We will sedate with Versed and fentanyl. Pulmonary: Lung protective ventilation strategy. Caution with high PEEP due to acute RV fa ilure. Chest x-ray and CT chest consistent with pulmonary edema. Crazy paving noted. BNP significantly elevated. Cardiovascular: Patient with evidence of NSTEMI based on ischemic changes on EKG, severely elevated troponin and acute systolic heart failure. RVSP noted to be greater than 60 mmHg. LVEF is moderately to severely reduced with an EF of 25 to 30%. I personally spoke with the mortgage loan processing clerk who was taken back to the [employer] [facility]. Avoid antihypertensives. We will consider dobutamine pending interventional cardiology evaluation. Greatly appreciate their assistance. Gastrointestinal: Place OG tube. N.p.o. for the time being. Check LFTs. At risk for congestive hepatopathy. Renal: Patient with LIZETT likely secondary to cardiorenal syndrome. He also has ongoing ischemia with a lactic acidosis likely secondary to coronary ischemia and hypoperfusion. Infectious disease: Procalcitonin and blood cultures pending. Doubtful of infectious etiology at this time. Cefepime initiated by hospitalist service. Hematologic: Currently on heparin infusion. Endocrine: TSH in November unremarkable. Maintain glucose under 180. Lines and tubes: Peripheral IVs and Kelley catheter in place. VTE prophylaxis: Heparin drip CODE STATUS: Full Disposition: ICU with possible transfer to tertiary center for further cardiac interventions. I have personally spent 34 minutes of critical care time in the direct management of this patient. This is a life/limb threatening event. This includes time spent evaluating patient, direct bedside care, chart review, placing orders, interpretation of diagnostic studies, discussion with consultants, patient, and family members, as well as other required patient management activities. This time is exclusive of all separately billable procedures, and teaching time and separate from and in addition to any other critical care service time. Thank you for allowing us to participate in the care of this patient. History of Present Illness Reason for Consultation: Acute systolic CHF and acute hypoxemic respiratory failure Attending Physician: Moy Parra MD History of Present Illness 77-year-old male with a past medical history of extensive coronary artery disease on aspirin and Plavix, hypertension, KIANNA on CPAP, rectal cancer status post ileostomy reversal 2004 who presented to the ER with shortness of breath. He was found to have a lactic acidosis of roughly 4.2 and a mild leukocytosis. He was admitted to PCU status. He started having increased work of breathing and was placed on BiPAP. I was called by the mortgage loan processing clerk due to concerns of impending respiratory failure. He was ultimately intubated by the ER staff and sent directly to the [employer] [facility]. Upon my evaluation he was just intubated and he was quite tachypneic. No history obtained from the patient. All history obtained from chart review and discussion with the mortgage loan processing clerk and bedside nursing. Patient has significant troponin elevation of over 45,000, BNP of [address] chest findings consistent with pulmonary edema. Allergies Allergy/AdvReac Type Severity Reaction Status Date / Time amoxicillin [From Augmentin] AdvReac Unknown GI upset Verified 12/11/22 15:39 clavulanic acid AdvReac Unknown GI upset Verified 12/11/22 15:39 [From Augmentin] Home Medications Medication Instructions Recorded Confirmed Type aspirin 81 mg tablet,delayed 81 mg PO QPM 03/17/19 12/13/22 History release (Aspir-) diphenoxylate-atropine 2.5 1 tab PO Q6H PRN diarrhea #120 tabs 10/20/19 12/13/22 Rx mg-0.025 mg tablet Auto Titrating CPAP #1 ea 10/21/21 12/11/22 Rx albuterol sulfate 90 mcg/actuation 1 - 2 inh inhalation QID #18 grams 12/02/21 12/13/22 Rx aerosol inhaler glipizide 5 mg tablet 5 mg PO BID #180 tabs 12/29/21 12/13/22 Rx pen needle, diabetic 32 gauge x #100 ea 01/28/22 12/11/22 Rx 5/32" CPAP Machine #1 ea 04/30/22 12/11/22 Rx clopidogrel 75 mg tablet (Plavix) 75 mg PO DAILY #90 tabs 07/22/22 12/13/22 Rx metformin 500 mg tablet 1,000 mg PO BID #120 tabs 08/03/22 12/13/22 Rx amlodipine 10 mg tablet 10 mg PO QAM Hypertension #90 tabs 09/01/22 12/13/22 Rx atorvastatin 40 mg tablet 40 mg PO PM #90 tabs 09/01/22 12/13/22 Rx lisinopril 40 mg tablet 40 mg PO DAILY #90 tabs 09/14/22 12/13/22 Rx insulin aspart U-100 100 unit/mL 19 unit (0.19 mL) subcut TID #15 mL 10/16/22 12/13/22 Rx (3 mL) subcutaneous pen (Novolog FlexPen U-100 Insulin aspart) hydrochlorothiazide 12.5 mg tablet 12.5 mg PO TID #90 tabs 10/19/22 12/13/22 Rx blood sugar diagnostic (OneTouch See Rx Instructions .Route 10/26/22 12/11/22 Rx Ultra Test strips) .COMPLEX #200 ea insulin glargine U-300 conc 300 54 unit (0.18 mL) subcut .qhs #3 mL 11/10/22 12/13/22 Rx unit/mL (3 mL) subcutaneous pen (Toujeo Max U-300 SoloStar) tamsulosin 0.4 mg capsule (Flomax) 0.8 mg PO QPM #180 caps 11/23/22 12/13/22 Rx atenolol 25 mg tablet 25 mg PO QAM #90 tabs 12/01/22 12/13/22 Rx doxycycline hyclate 100 mg capsule 100 mg PO BID 7 days #14 caps 12/11/22 12/13/22 Rx erythromycin 5 mg/gram (0.5 %) eye 1 applic ophthalmic (eye) Q6H 7 12/11/22 12/13/22 Rx ointment days #3.5 grams Patient History Medical History (Updated 12/13/22 @ 18:31 by Alfredo Flowers MD) Acute hypoxemic respiratory failure Acute systolic heart failure Bowel incontinence BPH (benign prostatic hyperplasia) Cancer COLO-RECTAL Cardiac murmur A CHILD Chronic diarrhea Coronary artery disease s/p cath x2, 3 stents Endotracheally intubated Hyperlipidemia Kidney stones HX Osteoarthritis Surgical History History of bowel resection WITH ILEOSTOMY-CHEMO/RADIATION 2010 History of cardiac cath 11/2016 1 STENT 05/2017 2 STENTS-F/U DR CHACON History of herniorrhaphy History of reversal of ileostomy History of total hip arthroplasty LEFT History of vascular access device PORT PLACEMENT AND REMOVAL Previous back surgery LOWER BACK Status post insertion of spinal cord stimulator FOR BOWEL [id number] WILL BRING REMOTE Family History Son Family history of diabetes mellitus Mother Family history of diabetes mellitus Sister Breast cancer Denies family history of Ovarian cancer Prostate cancer Myocardial infarction Colorectal cancer Social History Smoking Status: Never smoker Second Hand Exposure: No; Do You Dip or Chew Tobacco: No; Hx Alcohol Use: No Hx Substance Use: No Preferred Language: Uruguayan Communication Ability: Effective Visual Impairment: No Limitations Hearing Ability: Hard of Hearing Machine Builder Required: No Beliefs That Will Affect Care: None marital status: Current Living Situation: Family current occupational status: retired Other Information That Helps Us Care for You: No Feels Safe at Home: Yes Safety Concerns: Feels Safe At This Time Childhood Exposure to Second-Hand Smoke: Yes Diet: regular Diet Comment: regular Dental Care, Regularly: No Physical Activity Frequency: Does not Exercise Seatbelt Use: always Sunscreen Use: No Assistive Devices: Cane Review of Systems Review of Systems: All systems reviewed & are unremarkable except as noted in HPI & below Physical Exam Physical Exam: Constitutional: Morbidly obese appearing male in severe distress. Eyes: Pupils are equal round and reactive to light. Conjunctivae are normal. Anicteric sclera. Ears nose, mouth and throat: Intubated. Neck: Trachea is midline. Visual inspection is normal. Respiratory: Coarse breath sounds bilaterally. Tachypneic. Cardiovascular: Tachycardic. No murmurs. No edema. Gastrointestinal: Normal bowel sounds, soft, nontender and nondistended. No hepatosplenomegaly noted. Musculoskeletal: No cyanosis. Patient is able to move all extremities. Skin: No rashes, warm dry and intact. Neurologic: Unable to assess since he was intubated and sedated. Psychiatric: Anxious appearing. Intubated. Results & Data Results & Data Vital Signs (Past 12 Hours) Vital Signs Temp Pulse Pulse Resp BP BP Pulse Ox 12/13/22 17:29 120 H 12/13/22 17:00 12/13/22 16:35 36.7 C 104 H 40 H 132/74 94 12/13/22 16:44 12/13/22 16:41 84 30 H 98 12/13/22 14:36 71 12/13/22 13:41 76 24 121/71 97 12/13/22 11:56 83 27 H 122/61 96 12/13/22 11:52 83 28 H 98 12/13/22 11:03 89 45 H 134/68 93 12/13/22 10:40 82 32 H 97 12/13/22 10:17 73 12/13/22 10:08 82 35 H 142/74 H 92 12/13/22 10:07 86 L 12/13/22 09:53 36.6 C 76 30 H 125/70 90 O2 Del Method O2 Flow Rate FiO2 12/13/22 17:29 12/13/22 17:00 BiPAP 12/13/22 16:35 BiPAP 40 12/13/22 16:44 BiPAP 12/13/22 16:41 40 12/13/22 14:36 12/13/22 13:41 BiPAP 40 12/13/22 11:56 BiPAP 40 12/13/22 11:52 40 12/13/22 11:03 Nasal Cannula 4 12/13/22 10:40 Nasal Cannula 4 12/13/22 10:17 12/13/22 10:08 Nasal Cannula 4 12/13/22 10:07 Nasal Cannula 0 12/13/22 09:53 Room Air Coding Level of Care Code 78522 CRITICAL CARE 1ST 30-74M Diagnoses Acute hypoxemic respiratory failure J96.01 Endotracheally intubated Z97.8 Hypoxia R09.02 Acute systolic heart failure I50.21 Elevated troponin R77.8
--- NOTE | 2022-12-13 18:17 | XRay Report ---
XR chest 1V portable CLINICAL HISTORY: intubation TECHNIQUE: Single frontal radiograph of the chest was obtained. Comparison: Comparison is made to chest radiograph 12/13/2022 FINDINGS: Endotracheal tube is seen measuring up to 44 mm from the staci. Cardiomegaly is noted. The aortic ar ch is calcified. Multifocal airspace opacities are seen. No evidence of pleural effusion or pneumotho rax. IMPRESSION: Satisfactory appearance of endotracheal tube. Multifocal airspace opacities may represent atelectasis , pneumonia, and/or aspiration. ACT 112: Negative or not required by law. Electronically signed by: Pablo Peralta M.D. 12/13/2022 6:15 PM
[2022-12-13] MEDS ORDERED: SODIUM BICARB 8.4% INJ 50 MEQ/50 ML SYR IV ONE (18:42)
[2022-12-13] MEDS ORDERED: fentaNYL citrate 2,500 MCG/250 ML BAG IV ONE (19:00)
[2022-12-13] MEDS ORDERED: MIDAZOLAM HCL 125MG/250ML D5W IV ONE (19:01)
--- NOTE | 2022-12-13 19:10 | Pharmacy Report ---
Pharmacy PK ABX Note - Date of Service December 13, 2022 - Assessment and Plan Assessment 77 year old M receiving IV Vancomycin and Cefepime for treatment of pneumonia. MRSA nasal swab pending. Day # 1 of antimicrobial therapy. Plan Vancomycin * Loading dose: 2000 mg (~19mg/kg) IV x 1 already given in ED earlier today at 1340 * Maintenance dose: 1500 mg (~14mg/kg) IV every 24 hours * Regimen is predicted to achieve target AUC/ANGELICA of 400-600 mg/L.hr * Trough level ordered for: 12/15/22 Pharmacy will continue to follow and will adjust dose/frequency as necessary. Thank you. Pharmacy has transitioned to AUC monitoring for vancomycin. AUC/ANGELICA is the p referred PK/PD target and is associated with decreased risk of nephrotoxicity compared to traditional trough targets.
--- NOTE | 2022-12-13 19:14 | Cardiac Catheterization ---
[facility] Data: [employer] Cardiac Status Clinical evaluation leading to the procedure CAD Presenation: Non STEMI Heart Failure: NYHA Class: CCS IV Diagnostic Physicians Name: Mir Cruz MD Closure Device Recommendations: Medical Therapy and/or Counseling Cardiac Cath Procedure Full Procedure Date December 13, 2022 Pre-Procedure Diagnosis Pre-Procedure Diagnosis: Non STEMI AUC Score AUC Score: 8 Post-Procedure Diagnosis Post-Procedure Diagnosis: Severe CAD, Successful PCI and Elevated Intracardiac Pressures Procedure(s) Performed Procedure(s) Performed: Coronary Angiography, Left Heart Cath, Right Heart Cath and Ultrasound Guided Vascular Access Mechanical Engineering Teacher Mir Cruz MD Strand Buncher Fine Wire(s) [place] Estimated Blood Loss Estimated Blood Loss: 10 Medication(s) Medication(s): Fentanyl, Heparin, Lidocaine 1%, Nicardipine, Nitroglycerin and Versed Medication(s): Propofol Summary of Findings Indication: High risk NSTEMI, acute heart failure Access: 6 Fr right radial artery, 7 Fr right CFV under ultrasound guidance Catheters: [place], EBU 3.5 guide, 7 Fr's [place] Findings: LM -calcified, normal caliber, luminal irregularities LAD -small to medium caliber, calcified, proximal stent widely patent, 30% mid segment disease, distal vessel small but widely patent with MING-3 flow and wraps around apex. D1 appears chronically occluded. Very distal aspect fills partially via left to left collaterals. Circumflex -medium caliber 40% proximal, 30 to 40% distal disease prior to left PLB. Small OM1 70% ostial. Very small OM 2 with diffuse severe disease. Small to medium left PLB 50-60% proximal RCA -dominant, 100% ostial chronic total occlusion. Distal vessel fills via [id number] collaterals. RA 16 RV 54/20 PA 56/26/39 PAWP 22 LV 37 PaSat 70% AoSat 98% Thermo CO/CI 6.6/3.1 Arterial Closure: TR band Summary: 1. Severe chronic multivessel coronary artery disease -100% ostial RCA chronic total occlusion. PDA/PLB fill via [id number] collaterals Proximal LAD stent patent. D1 occluded with faint left to left distal collaterals 40% proximal, 30% mid circumflex. Small OM1 70% ostial. Left PLB 60% proximal 2. Left and right-sided heart failure (LVEDP 37, RA 16) 3. Pulmonary hypertension (postcapillary) 4. Increased cardiac output (CO 6.6, PA sat 70%). Recommendations: No acute obstructive disease to explain patient's elevated troponin and acute heart failure. Potentially stress-induced cardiomyopathy versus possible acute on chronic component to patient's occluded RCA, D1. Occluded vessels collateralized and no need for additional revascularization at this time. Continue diuresis, given additional 40 IV Lasix in [employer] Broad-spectrum antibiotics per primary/ICU team Continue home DAPT with aspirin, clopidogrel, statin Hemodynamics Rest Ao:: 111/62/92 Final Ao: 100/51/70 LV: 123/37 Recommendations Recommendations: Medical Therapy and/or Counseling Specimens Specimens: None Radiation Exposure (mGy) 2187 Contrast (mls) 85 Anesthesia Moderate [id number] Procedural Complication(s) None Disposition ICU I attest to the content of the Intraoperative Record and any orders documented therein. Any exceptions are noted below. [facility] Card Cath Procedure Codes Cardiac Catheterization Procedure 1: Cardiovascular Cath Procedures: 37281 Coronaries & LHC (+/-LV) & RHC Therapeutic Services & Ancillary Procedure 1: Cardiovascular Tx and Anc Procedures: 69153 Ultrasonic Guidance Vascular Access Moderate Sedation Procedure 1: Sedation/Anesthesia: 85599 Mod Sedation by the same physician;Init15 Min Child Age 5 & Up Procedure 2: Sedation/Anesthesia: 75977 Mod Sedation by the same physician; Ea [id number] Minutes PG Care Time/CCT Total # of Minutes Spent Total Time Spent with Patient: Total time spent is greater than 50% in coordination of care (as documented) at patient's floor/unit and/or counseling patient:
[2022-12-13] MEDS ORDERED: fentaNYL BOLUS from BAG IV PRN (19:17)
[2022-12-13] MEDS ORDERED: MIDAZOLAM HCL 125 MG/250 ML BAG IV SCH (19:17)
[2022-12-13] MEDS ORDERED: STAT IV Infusion **Titration per Protocol STA ×3 (19:17→22:20)
[2022-12-13] MEDS ORDERED: fentaNYL citrate 2,500 MCG/250 ML BAG IV SCH (19:17)
[2022-12-13] MEDS ORDERED: ALBUTEROL 0.083% NEBU SOLN 3 ML VIAL NEB PRN (19:39)
[2022-12-13] MEDS ORDERED: Nursing to Pharmacy Communication SCH (19:45)
--- NOTE | 2022-12-13 19:45 | XRay Report ---
XR chest 1V portable CLINICAL HISTORY: arrival to ICU- eval ETT and newly placed OGT TECHNIQUE: Single frontal radiograph of the chest was obtained. Comparison: Comparison is made to chest radiograph 12/13/2022 FINDINGS: Satisfactory appearance of endotracheal tube. Enteric tube side-port lies above the diaphragm. Cardio megaly is noted. Multifocal airspace opacities are seen. No evidence of pleural effusion or pneumotho rax. IMPRESSION: 1. Enteric tube side-port lies below the diaphragm and could be advanced approximately 8 cm for impr magaly positioning. 2. Multifocal airspace opacities may represent atelectasis, pneumonia, and/or aspiration. Stable car diomegaly. ACT 112: Negative or not required by law. Electronically signed by: Pablo Peralta M.D. 12/13/2022 7:43 PM
[2022-12-13] MEDS ORDERED: BUMETANIDE 2 MG in SYRINGE 0 ML IV ONE (20:01)
[2022-12-13] MEDS: AZITHROMYCIN 500 MG in DEXTROSE 5% 250 ML IV SCH (20:03)
[2022-12-13] MEDS: INSULIN ASPART PER UNIT CHARGE SC SCH ×2 (20:12→23:27)
[2022-12-13 20:17] LABS: iSTAT Allen Test Fail; iSTAT Art Bld Gas pCO2 Correct 42 mmHg (35-46); iSTAT Art Bld Gas pH Corrected 7.278 (7.35-7.45); iSTAT Arterial Blood Gas HCO3 20 meg/L (19-24); iSTAT Arterial Blood Gas pCO2 42 mmHg (35-46); iSTAT Arterial Blood Gas pH 7.27 (7.35-7.45); iSTAT Arterial Blood Gas pO2 84 mmHg (80-95); iSTAT Arterial Blood Gas pO2 C 82; iSTAT Carbon Dioxide 21 mmol/L (24-31); iSTAT FiO2 80 %; iSTAT Hematocrit 32 % (42-52); iSTAT Hemoglobin 10.9 g/dl (14.0-18.0); iSTAT Potassium 5.3 mmol/L (3.3-5.0); iSTAT Site R Radial; iSTAT Sodium 131 mmol/L (135-144)
[2022-12-13] MEDS ORDERED: FUROSEMIDE 100 MG in DEXTROSE 5% 90 ML IV SCH (20:30)
[2022-12-13 20:46] LABS: Albumin Level 3.3 gm/dl (3.4-5.0); Bilirubin Direct 0.1 mg/dl (0-0.2); Bilirubin,Total 0.6 mg/dl (0.2-1.0); Total Protein 6.5 gm/dl (6.0-8.3)
[2022-12-13] MEDS ORDERED: LANTUS PER UNIT CHARGE SQ SCH ×2 (21:00)
[2022-12-13] MEDS ORDERED: TAMSULOSIN HCL 0.4 MG CAP PO SCH (21:00)
[2022-12-13] MEDS: MIDAZOLAM BOLUS FROM BAG IV PRN (21:11)
[2022-12-13] MEDS: ATORVASTATIN 40 MG TAB PO SCH (21:39)
[2022-12-13] MEDS: CEFEPIME 2,000 MG in SYRINGE 0 ML IV SCH (21:41)
[2022-12-13] MEDS ORDERED: CHLOROTHIAZIDE SODIUM 500 MG in DEXTROSE 5% 50 ML IV ONE (21:47)
--- NOTE | 2022-12-13 21:54 | Procedure Note ---
Procedure Note Date of Service December 13, 2022 Note ARTERIAL LINE PROCEDURE NOTE: Procedure: Arterial Line Placement Proceduralist: Luis M Elena Attending: Dr. Flowers Indication: Hemodynamic monitoring, frequent lab draws, vasopressor use Anesthesia: [x]Lidocaine 1% Consent was not obtained as no immediate family available and patient sedated with increasing lactate and hypotension. length. A time-out was completed verifying correct patient, procedure, site, positionin g. Allens test was performed to ensure adequate perfusion. Patients LEFT wrist was prepped and draped in the usual sterile fashion. Ultrasound guidance was used to gluing machine offbearer the vessel prior to procedure and then direct visualization to aid needle placement. Following identifying the artery- locat anesthesia was provided, after waiting for local anesthesia to take effct, a 20g Arrow arterial line was introduced into the LEFT RADIAL artery, with appropriate brisk flash of blood was obtained, the wire was advanced without resistance and catheter was threaded. The needle was removed with appropriate blood return. Good waveform was observed. The patient tolerated the procedure well. Blood Loss: Minimal Complications: None Procedural Ultrasound Guidance: Procedure Date: Indication: Direct visualization of arterial line placement Attending: Dr. Flowers Artery Identified: YES Line confirmed in Artery with ultrasound: YES Complications: NONE Patient tolerated procedure: WELL Coding CPT Codes Tubes, Drains, and Vasc Access - Tubes, Drains, and Vasc Access: [id number] Ultrasound Guidance For Vascular ([id number]) Tubes, Drains, and Vasc Access - Tubes, Drains, and Vasc Access: [id number] Arterial Cath/Cannulation Sampling/Monitoring/Transfusion ([id number]) [facility] [place] [place] Codes (Charges) Tubes, Drains, and Vasc Access Procedure 1: Tubes, Drains, and Vasc Access: [id number] Ultrasound Guidance For Vascular Procedure 2: Tubes, Drains, and Vasc Access: [id number] Arterial Cath/Cannulation Sampling/Monitoring/Transfusion
[2022-12-13] MEDS ORDERED: STAT IV STA ×2 (22:06→23:22)
[2022-12-13] MEDS ORDERED: INSULIN PROTOCOL GOAL RANGE ONE (22:06)
[2022-12-13] MEDS ORDERED: NovoLIN-R BOLUS FROM BAG IV ONE (22:15)
[2022-12-13] MEDS ORDERED: INSULIN REGULAR 250 UNITS in SODIUM CHLORIDE 0.9% 247.5 ML IV SCH (22:15)
[2022-12-13] MEDS: DOBUTamine / D5W 500 MG/250 ML BAG IV SCH (22:22)
[2022-12-13] MEDS: VASOPRESSIN 20 UNITS in 0.9 % SODIUM CHLORIDE 100 ML IV SCH (22:35)
--- NOTE | 2022-12-13 22:54 | Procedure Note ---
Procedure Note Date of Service December 13, 2022 Note INTERNAL JUGULAR CENTRAL LINE PROCEDURE NOTE: Procedure: Internal Jugular Central Line Placement Proceduralist: Luis M HUGHES ([facility]) Attending: Dr. Flowers Indication: Central Drug Administration, Vasopressors Multiple Lab Draws Necessary, etc. Anesthesia: [x]Lidocaine 1% Consent was NOT obtained or signed as urgent with need for vasopressor use with increasing lactate and hypotensive A time-out was completed verifying correct patient, procedure, site, positioning, and implants(s) or special equipment if applicable. Patients RIGHT Neck was cleansed and draped in the typical sterile fashion using Chloraprep. The Internal Jugular Vein and Carotid Artery were identified using ultrasound. The superficial tissue was anesthetized using 8 mL of 1% lidocaine without epinephrine under direct visualization with the ultrasound. After adequate anesthetization was achieved, the Internal Jugular vein was cannulated under direct ultrasound guidance using an introducer needle on a syringe. Good venous blood return was maintained prior to removal of syringe from introducer needle. Using Seldinger Technique, a guide wire was advanced through the introducer needle without resistance. The introducer needle was removed and ultrasound images were obtained of the guide wire within the compressible Internal Jugular Vein . A small incision was made in penetrating fashion at the guide wire insertion site utilizing an 11 blade scalpel. The dilator was advanced to the vessel without resistance. The dilator was exchanged for the triple lumen catheter which was advanced into the vessel without resistance. The guide wire was removed intact from the catheter without issue. Claves were placed on each catheter tip with confirmation of good blood flow from each lumen. Each port was easily flushed with sterile saline. The catheter was placed at 18 cm and sutured in place. BioPatch was applied to the catheter and a sterile Tegaderm dressing was applied over the catheter with careful attention to sterility. Patient tolerated procedure well. No immediate complications were met. Post procedure x-ray was completed, placement was appropriate and no pneumothorax was noted. Procedural Ultrasound Guidance: Procedure Date: Indication: Hemodynamic monitoring and vasopressor use Proceduralist: Luis M Elena Attending: Dr. Flowers Artery AND Vein visualized: YES Compressible Vein: YES Guidewire or Short Catheter seen in vein prior to dilation: YES Images NOT obtained are saved for permanent record as procedure was urgent. Coding CPT Codes Tubes, Drains, and Vasc Access - Tubes, Drains, and Vasc Access: [id number] Insertion Of Non-tunneled Catheter Age 3 Yrs> ([id number]) Tubes, Drains, and Vasc Access - Tubes, Drains, and Vasc Access: [id number] Ultrasound Guidance For Vascular ([id number]) [facility] [place] Procedure Codes (Charges) Tubes, Drains, and Vasc Access Procedure 1: Tubes, Drains, and Vasc Access: [id number] Insertion Of Non-tunneled Catheter Age 3 Yrs> Procedure 2: Tubes, Drains, and Vasc Access: [id number] Ultrasound Guidance For Vascular
[2022-12-13 23:04] LABS: BUN Creatinine Ratio 27.7 (10-20); Calcium 7.9 mg/dl (8.6-10.3); Creatinine Clr Calc Pharmacy 31.6 ml/min; Est GFR (African American) 31.8 ml/min; Est GFR (Non-African American) 27.5 ml/min
[2022-12-13] MEDS ORDERED: CALCIUM GLUCONATE 10% 1,000 MG in DEXTROSE 5% 50 ML IV ONE (23:22)
--- NOTE | 2022-12-13 23:36 | Communication Note ---
Date of Service: December 13, [id number] Patient remains with very little urine output despite diuretic therapy, He is with MAPS <60 as well as relative bradycardia- which he appears to have history of dating back to 2019. Based off his ECHO and clean cath with reported elevated CO and elevated RVSP patient with mixed picture of right sided heart failure as well as likely septic picture. He currently is with worsening end organ dysfunction as well as increasing lactate level. Will place patient on Dobutamine and Vasopressin for the above and follow his hemodynamics as well as urine output. If no effect could change to epinephrine or Levophed, however with his elevated RVSP would like to avoid further alpha if able. Placed arterial line as well as right IJ CVL- see separate procedure notes Attempt CVP monitoring through CVL Bedside pulmonary POCUS consistent with blines Extremities cool and wet A/P 1.) Shock- multifactorial as above cardiogenic with likely sepsis resulting in respiratory failure - initiated inotrope and vasopressors- lactate now downtrending and urine output increasing but remains less than 30 - would like to obtain MAPS closer to 70 if able - continue with diuresis - If renal function worsens may need CRRT as hemodynamics likely not able to support IHD 2.) DM- hyperglycemia remains- insulin infusion started with patient on vasop ressors. Goal <180mg/dl 50 min additional critical care time in direct care of this patient. This was spent ordering and reviewing labs and imaging, bedside evaluations, and procedural time. This is separate from other billed critical care time. Luis M [facility] ([facility] Coding Level of Care Code 84160 CRITICAL CARE EA ADD 30M History Problem Focused Exam Problem Focused Medical Decision Making High Complexity
[2022-12-14 01:06] LABS: Partial Thromboplastin Ratio 0.9; Partial Thromboplastin Time 25.3 Seconds (21.0-31.0)
[2022-12-14] MEDS: MIDAZOLAM BOLUS FROM BAG IV PRN ×2 (02:37→05:12)
[2022-12-14] MEDS: ERYTHROMYCIN OP OINT 5 MG/GM 3.5 GM TUBE OP SCH ×4 (02:37→20:21)
[2022-12-14 04:06] LABS: iSTAT Allen Test Pass; iSTAT Art Bld Gas pCO2 Correct 38 mmHg (35-46); iSTAT Art Bld Gas pH Corrected 7.389 (7.35-7.45); iSTAT Arterial Blood Gas HCO3 23 meg/L (19-24); iSTAT Arterial Blood Gas pCO2 39 mmHg (35-46); iSTAT Arterial Blood Gas pH 7.38 (7.35-7.45); iSTAT Arterial Blood Gas pO2 69 mmHg (80-95); iSTAT Arterial Blood Gas pO2 C 66; iSTAT Carbon Dioxide 25 mmol/L (24-31); iSTAT FiO2 50 %; iSTAT Hematocrit 29 % (42-52); iSTAT Hemoglobin 9.9 g/dl (14.0-18.0); iSTAT Potassium 3.7 mmol/L (3.3-5.0); iSTAT Site Art Line; iSTAT Sodium 135 mmol/L (135-144)
[2022-12-14 04:53] LABS: Basophils # (auto) 0.01 K/uL (0-0.2); Basophils % (auto) 0.1 %; Hematocrit (blood only) 29.1 % (42.0-52.0); Hemoglobin 9.9 g/dl (14.0-18.0); Immature Granulocytes # (auto) 0.05 K/uL (0.01-0.20); Immature Granulocytes % (auto) 0.4 %; Lymphocytes % (auto) 8.9 %; Mean Corpuscular Hemoglobin 29.5 pg (25.0-34.0); Mean Corpuscular Volume 86.6 fL (80.0-100.0); Mean Platelet Volume 9.9 fL (9.4-12.4); Monocytes # (auto) 1.04 K/uL (0.11-0.59); Monocytes % (auto) 8.4 %; Neutrophils # (auto) 10.14 K/uL (1.40-6.50); Neutrophils % (auto) 82.2 %; Platelet Count 325 K/uL (130-400); RDW Coefficient of Variation 14.1 % (11.5-14.5); RDW Standard Deviation 44.7 fL (36.4-46.3); Red Blood Count 3.36 M/uL (4.70-6.10); White Blood Count 12.34 K/ul (4.8-10.8)
[2022-12-14] MEDS: CEFEPIME 2,000 MG in SYRINGE 0 ML IV SCH ×2 (05:12→17:15)
[2022-12-14 05:13] LABS: Albumin Globulin Ratio 1.1 (0.9-2); Albumin Level 3.2 gm/dl (3.4-5.0); BUN Creatinine Ratio 32.5 (10-20); Bilirubin,Total 0.4 mg/dl (0.2-1.0); Calcium 8.2 mg/dl (8.6-10.3); Creatinine Clr Calc Pharmacy 35.8 ml/min; Est GFR (African American) 37.1 ml/min; Phosphorus 4.1 mg/dl (2.5-4.9); Potassium 3.6 mmol/L (3.5-5.1); Total Protein 6.2 gm/dl (6.0-8.3)
[2022-12-14] MEDS ORDERED: POTASSIUM CHLORIDE 20 MEQ/15 ML UDC PO STA (05:20)
[2022-12-14 05:45] LABS: Troponin I High Sensitivity 38914.3 pg/ml (0-20)
--- NOTE | 2022-12-14 06:45 | XRay Report ---
XR chest 1V portable CLINICAL HISTORY: s/p central line placement COMPARISON STUDY: Chest CT December 13, 2022. Chest radiograph 12/13/2022 at 7:21 PM. FINDINGS: Tip of endotracheal tube is 3.4 cm above the staci. Tip of nasogastric tube is below lower aspect of this image but at least within the proximal body of the stomach no pneumothorax following placement of a right internal jugular central line. Catheter tip projects over the distal SVC. Cardio megaly is unchanged. There is no pneumothorax. Interstitial thickening and alveolar opacities persist . There are trace bilateral pleural effusions. IMPRESSION: 1. No pneumothorax following placement of a right internal jugular central line. Satisfactory positio zion of lines and tubes. 2. No change in interstitial thickening consistent with pulmonary edema. Superimposed airspace opacit ies, greater within the right lung, similar to prior exam. The findings could reflect alveolar pulmon arlette edema or superimposed pneumonia. ACT 112: Negative or not required by law. Electronically signed by: Indio Lyons M.D. 12/14/2022 6:44 AM
[2022-12-14] MEDS ORDERED: CALCIUM CHLORIDE 10% 1,000 MG in DEXTROSE 5% 50 ML IV STA (07:05)
[2022-12-14] MEDS ORDERED: INSULIN ASPART PER UNIT CHARGE SC SCH (07:30)
--- NOTE | 2022-12-14 07:53 | XRay Report ---
XR chest 1V portable CLINICAL HISTORY: evaluate lines/tubes and lungs while intubated TECHNIQUE: Single frontal radiograph of the chest was obtained. Comparison: Comparison is made to chest radiograph 12/13/2022 FINDINGS: Lines and tubes are stable. Cardiomegaly is noted. Multifocal airspace opacities are seen. No evidenc e of pleural effusion or pneumothorax. IMPRESSION: Stable lines and tubes. Multifocal airspace opacities are again seen. ACT 112: Negative or not required by law. Electronically signed by: Pablo Peralta M.D. 12/14/2022 7:52 AM
[2022-12-14] MEDS ORDERED: VANCOMYCIN HCL 1,500 MG in SODIUM CHLORIDE 0.9% 500 ML IV SCH (08:00)
--- NOTE | 2022-12-14 08:40 | Critical Care Progress Note ---
Date of Service December 14, 2022 Assessment & Plan (1) Acute hypoxemic respiratory failure: (2) Endotracheally intubated: (3) Hypoxia: (4) Acute systolic heart failure: (5) Elevated troponin: Plan 77-year-old obese male with a history of KIANNA on CPAP, extensive coronary artery disease, type 2 diabetes, hyperlipidemia and hypertension admitted due to acute systolic CHF and currently in acute hypoxemic respiratory failure requiring mechanical ventilation. He was urgently sent to the [facility]. Neurologic: Discontinue sedatives once extubated Pulmonary: Patient on minimal vent settings of FiO2 of 30%, tolerated CPAP trial proceeding with extubation Cardiovascular: Acute on chronic congestive heart failure -Transition from Lasix infusion to Bumex IV pushes -Continue aggressive diuresis goal to be 1 to 2 L negative Gastrointestinal: Consider heart healthy diet if patient responsive after extubation Renal: Patient with LIZETT likely secondary to cardiorenal syndrome. -Mild improvement in creatinine Infectious disease: Procalcitonin unreliable and acute kidney injury -Blood cultures negative to date Hematologic: Heparin 7500 3 times daily DVT prophylaxis Endocrine: TSH in November unremarkable. Maintain glucose under 180. Lines and tubes: Peripheral IVs and Kelley catheter in place. CODE STATUS: Full Disposition: ICU I have personally spent 40 minutes of critical care time in the direct management of this patient. This is a life/limb threatening event. This includes time spent evaluating patient, direct bedside care, chart review, placing orders, interpretation of diagnostic studies, discussion with consultants, patient, and family members, as well as other required patient management activities. This time is exclusive of all separately billable procedures, and teaching time and separate from and in addition to any other critical care service time. Admission and Anticipated Discharge Date Admission Date: December 13, 2022 Subjective intubated, following simple commands, underwent cardiac cath last night. decreasing vasoactive requirement. Review of Systems Review of Systems: Unobtainable due to endotracheal tube Physical Exam Physical Exam: General: Sedated. nontoxic. Skin: Warm, dry, Head: Atraumatic Ears, nose, mouth and throat: airway obscured by endotracheal tube Cardiovascular: Normal peripheral perfusion Respiratory: Ventilator settings reviewed Gastrointestinal: Non distended Musculoskeletal: No deformity Results & Data Results & Data Vital Signs (Past 12 Hours) Vital Signs Temp Pulse Resp BP Pulse Ox O2 Del Method FiO2 12/14/22 07:26 70 22 92 50 12/14/22 06:45 36.6 C 61 22 95 12/14/22 06:30 36.6 C 61 22 94 12/14/22 06:30 97/51 L 12/14/22 06:25 115/51 L 12/14/22 06:25 36.6 C 66 22 97 12/14/22 06:15 36.6 C 70 22 96 12/14/22 06:15 124/53 L 12/14/22 06:01 36.6 C 69 22 94 12/14/22 06:01 113/45 L 12/14/22 06:00 36.6 C 67 22 95 12/14/22 05:45 36.7 C 74 22 94 12/14/22 05:30 24 92 12/14/22 05:15 36.7 C 73 22 95 12/14/22 05:15 127/59 L 12/14/22 05:00 36.6 C 66 22 96 12/14/22 05:00 148/56 H 12/14/22 04:45 36.6 C 65 22 96 12/14/22 04:45 140/57 L 12/14/22 04:30 36.6 C 65 22 94 12/14/22 04:30 147/60 H 12/14/22 04:15 36.5 C 64 22 94 12/14/22 04:15 160/54 H 12/14/22 04:00 36.5 C 67 22 95 12/14/22 04:00 173/54 H 12/14/22 03:45 36.5 C 64 22 95 12/14/22 03:45 155/56 H 12/14/22 03:31 36.5 C 63 22 94 12/14/22 03:31 171/47 H 12/14/22 03:30 36.5 C 64 22 94 12/14/22 03:15 36.4 C L 64 22 96 12/14/22 03:15 135/84 12/14/22 03:00 36.4 C L 63 23 97 12/14/22 03:00 178/56 H 12/14/22 03:22 22 50 12/14/22 02:45 36.4 C L 66 19 96 12/14/22 02:45 167/58 H 12/14/22 02:30 36.4 C L 67 19 96 12/14/22 02:30 161/57 H 12/14/22 02:16 143/50 H 12/14/22 02:16 36.4 C L 68 22 95 12/14/22 02:15 36.4 C L 68 19 95 12/14/22 02:05 36.4 C L 62 22 96 12/14/22 02:05 134/51 L 12/14/22 02:01 36.3 C L 62 22 95 12/14/22 02:00 36.3 C L 61 22 95 12/14/22 01:56 36.3 C L 58 L 22 95 12/14/22 01:56 133/49 L 12/14/22 01:45 36.3 C L 59 L 22 95 12/14/22 01:45 152/69 H 12/14/22 01:30 36.3 C L 65 22 95 12/14/22 01:30 155/65 H 12/14/22 01:15 36.3 C L 68 22 96 12/13/22 23:30 22 12/14/22 02:05 59 L 22 95 60 12/14/22 01:00 36.2 C L 70 22 97 12/14/22 00:47 152/59 H 12/14/22 00:47 36.2 C L 72 22 95 12/14/22 00:45 36.2 C L 70 22 95 12/14/22 00:45 153/61 H 12/14/22 00:30 36.2 C L 69 22 96 12/14/22 00:30 160/62 H 12/14/22 00:15 36.2 C L 70 22 95 12/14/22 00:03 36.2 C L 66 22 91 12/14/22 00:03 154/64 H 12/14/22 00:01 36.2 C L 74 22 94 12/14/22 00:01 185/63 H 12/14/22 00:00 36.2 C L 62 22 94 12/13/22 23:46 36.3 C L 62 22 94 12/13/22 23:46 180/71 H 12/13/22 23:45 36.3 C L 62 22 94 12/13/22 23:30 36.2 C L 57 L 22 94 12/13/22 23:30 140/69 12/14/22 00:33 61 12/13/22 23:15 36.2 C L 62 22 97 12/13/22 23:15 125/70 12/13/22 23:00 36.2 C L 55 L 22 97 12/13/22 23:00 138/66 12/13/22 22:46 36.1 C L 59 L 22 95 12/13/22 22:46 103/31 L 12/13/22 22:45 36.1 C L 59 L 22 96 12/13/22 22:30 36.0 C L 60 22 97 12/13/22 22:15 36.0 C L 59 L 22 97 12/13/22 22:15 110/43 L 12/13/22 22:00 36.0 C L 58 L 22 98 12/13/22 22:00 101/47 L 12/13/22 23:08 22 60 12/13/22 22:48 58 L 22 97 70 12/13/22 21:45 56 L 22 94 12/13/22 21:45 90/48 L 12/13/22 21:30 58 L 22 96 12/13/22 21:30 100/59 L 12/13/22 21:16 101/44 L 12/13/22 21:16 60 19 96 12/13/22 21:15 58 L 22 96 12/13/22 21:06 84 22 98 12/13/22 21:06 122/56 L 12/13/22 21:00 59 L 22 96 12/13/22 20:45 54 L 19 77 L 12/13/22 20:45 89/55 L 12/13/22 21:59 Mechanical Vent 80 12/13/22 20:43 55 L 22 94 80 Critical Care Results & Data Vital Signs (Past 12 Hours) Vital Signs Temp Pulse Resp BP Pulse Ox O2 Del Method FiO2 12/14/22 08:00 55 12/14/22 08:00 64 12/14/22 08:00 Mechanical Vent 12/14/22 08:00 70 143/53 H 12/14/22 07:26 70 22 92 50 12/14/22 06:45 36.6 C 61 22 95 12/14/22 06:30 36.6 C 61 22 94 12/14/22 06:30 97/51 L 12/14/22 06:25 115/51 L 12/14/22 06:25 36.6 C 66 22 97 12/14/22 06:15 36.6 C 70 22 96 12/14/22 06:15 124/53 L 12/14/22 06:01 36.6 C 69 22 94 12/14/22 06:01 113/45 L 12/14/22 06:00 36.6 C 67 22 95 12/14/22 05:45 36.7 C 74 22 94 12/14/22 05:30 24 92 12/14/22 05:15 36.7 C 73 22 95 12/14/22 05:15 127/59 L 12/14/22 05:00 36.6 C 66 22 96 12/14/22 05:00 148/56 H 12/14/22 04:45 36.6 C 65 22 96 12/14/22 04:45 140/57 L 12/14/22 04:30 36.6 C 65 22 94 12/14/22 04:30 147/60 H 12/14/22 04:15 36.5 C 64 22 94 12/14/22 04:15 160/54 H 12/14/22 04:00 36.5 C 67 22 95 12/14/22 04:00 173/54 H 12/14/22 03:45 36.5 C 64 22 95 12/14/22 03:45 155/56 H 12/14/22 03:31 36.5 C 63 22 94 12/14/22 03:31 171/47 H 12/14/22 03:30 36.5 C 64 22 94 12/14/22 03:15 36.4 C L 64 22 96 12/14/22 03:15 135/84 12/14/22 03:00 36.4 C L 63 23 97 12/14/22 03:00 178/56 H 12/14/22 03:22 22 50 12/14/22 02:45 36.4 C L 66 19 96 12/14/22 02:45 167/58 H 12/14/22 02:30 36.4 C L 67 19 96 12/14/22 02:30 161/57 H 12/14/22 02:16 143/50 H 12/14/22 02:16 36.4 C L 68 22 95 12/14/22 02:15 36.4 C L 68 19 95 12/14/22 02:05 36.4 C L 62 22 96 12/14/22 02:05 134/51 L 12/14/22 02:01 36.3 C L 62 22 95 12/14/22 02:00 36.3 C L 61 22 95 12/14/22 01:56 36.3 C L 58 L 22 95 12/14/22 01:56 133/49 L 12/14/22 01:45 36.3 C L 59 L 22 95 12/14/22 01:45 152/69 H 12/14/22 01:30 36.3 C L 65 22 95 12/14/22 01:30 155/65 H 12/14/22 01:15 36.3 C L 68 22 96 12/13/22 23:30 22 12/14/22 02:05 59 L 22 95 60 12/14/22 01:00 36.2 C L 70 22 97 12/14/22 00:47 152/59 H 12/14/22 00:47 36.2 C L 72 22 95 12/14/22 00:45 36.2 C L 70 22 95 12/14/22 00:45 153/61 H 12/14/22 00:30 36.2 C L 69 22 96 12/14/22 00:30 160/62 H 12/14/22 00:15 36.2 C L 70 22 95 12/14/22 00:03 36.2 C L 66 22 91 12/14/22 00:03 154/64 H 12/14/22 00:01 36.2 C L 74 22 94 12/14/22 00:01 185/63 H 12/14/22 00:00 36.2 C L 62 22 94 12/13/22 23:46 36.3 C L 62 22 94 12/13/22 23:46 180/71 H 12/13/22 23:45 36.3 C L 62 22 94 12/13/22 23:30 36.2 C L 57 L 22 94 12/13/22 23:30 140/69 12/14/22 00:33 61 12/13/22 23:15 36.2 C L 62 22 97 12/13/22 23:15 125/70 12/13/22 23:00 36.2 C L 55 L 22 97 12/13/22 23:00 138/66 12/13/22 22:46 36.1 C L 59 L 22 95 12/13/22 22:46 103/31 L 12/13/22 22:45 36.1 C L 59 L 22 96 12/13/22 22:30 36.0 C L 60 22 97 12/13/22 22:15 36.0 C L 59 L 22 97 12/13/22 22:15 110/43 L 12/13/22 22:00 36.0 C L 58 L 22 98 12/13/22 22:00 101/47 L 12/13/22 23:08 22 60 12/13/22 22:48 58 L 22 97 70 12/13/22 21:45 56 L 22 94 12/13/22 21:45 90/48 L 12/13/22 21:59 Mechanical Vent 80 Lab & Micro Results (Past 24 Hours) RBC 3.36 M/uL (4.70-6.10) L 12/14/22 WBC 12.34 K/ul (4.8-10.8) H 12/14/22 Hgb 9.9 g/dl (14.0-18.0) L 12/14/22 Hct 29.1 % (42.0-52.0) L 12/14/22 MCV 86.6 fL (80.0-100.0) 12/14/22 MCH 29.5 pg (25.0-34.0) 12/14/22 MCHC 34.0 g/dL (32.0-36.0) 12/14/22 RDW Standard Deviation 44.7 fL (36.4-46.3) 12/14/22 RDW Coefficient of Variation 14.1 % (11.5-14.5) 12/14/22 Plt Count 325 K/uL (130-400) 12/14/22 MPV 9.9 fL (9.4-12.4) 12/14/22 Neutrophils (%) (Auto) 82.2 % 12/14/22 Lymphocytes (%) (Auto) 8.9 % 12/14/22 Monocytes # (Auto) 1.04 K/uL (0.11-0.59) H 12/14/22 Eosinophils # (Auto) 0.00 K/uL (0-0.50) 12/14/22 Immature Granulocyte % (Auto) 0.4 % 12/14/22 Neutrophils # (Auto) 10.14 K/uL (1.40-6.50) H 12/14/22 Lymphocytes # (Auto) 1.10 K/uL (1.2-3.4) L 12/14/22 Monocytes # (Auto) 1.04 K/uL (0.11-0.59) H 12/14/22 Eosinophils # (Auto) 0.00 K/uL (0-0.50) 12/14/22 Basophils # (Auto) 0.01 K/uL (0-0.2) 12/14/22 Immature Granulocyte # (Auto) 0.05 K/uL (0.01-0.20) 3 Na 134 mmol/L (136-145) L 12/14/22 K 3.6 mmol/L (3.5-5.1) 12/14/22 Cl 100 mmol/L (98-107) 12/14/22 CO2 24 mmol/L (21-32) 12/14/22 Anion Gap 10 (3-11) 12/14/22 BUN 63 mg/dl (6-23) H 12/14/22 Creatinine 1.94 mg/dl (0.6-1.4) H 12/14/22 Estimated GFR ( Amer) 37.1 ml/min 12/14/22 Estimated GFR (Non-Af Amer) 32.0 ml/min 12/14/22 BUN/Creatinine Ratio 32.5 (10-20) H 12/14/22 Glu 223 mg/dl (70-99(Fasting)) H 12/14/22 Ca 8.2 mg/dl (8.6-10.3) L 12/14/22 Phosphorus Level 4.1 mg/dl (2.5-4.9) 12/14/22 Total Bilirubin 0.4 mg/dl (0.2-1.0) 12/14/22 Direct Bilirubin 0.1 mg/dl (0-0.2) 12/13/22 AST 102 U/L (13-39) H 12/14/22 ALT 34 U/L (7-52) 12/14/22 Alkaline Phosphatase 55 U/L (34-104) 12/14/22 TP 6.2 gm/dl (6.0-8.3) 12/14/22 Albumin 3.2 gm/dl (3.4-5.0) L 12/14/22 Globulin 3.0 gm/dl (2.5-4.0) 12/14/22 Albumin/Globulin Ratio 1.1 (0.9-2) 12/14/22 Mg 2.0 mg/dl (1.7-2.4) 12/14/22 04:27 Calcium Level 8.2 mg/dl (8.6-10.3) L 12/14/22 04:27 Ionized Calcium 1.09 mmol/L (1.12-1.32) L 12/14/22 04:27 Venous Blood pH 7.14 (7.36-7.41) L 12/13/22 17:40 Venous Blood Partial Pressure CO2 56 mmHg (38-50) H 12/13/22 17 :40 Venous Blood Partial Pressure O2 63 mmHg 12/13/22 17:40 Venous Blood HCO3 19 mmol/L 12/13/22 17:40 Venous Blood Base Excess -10.3 mEq/L 12/13/22 17:40 Venous Blood Oxygen Saturation 87.2 % 12/13/22 17:40 Peter Test Pass 12/14/22 03:53 Microbiology 12/13/22 19:51 Gram Stain - Final Sputum, Expectorated Diagnostic Findings (Past 24 Hours) Chest X-Ray 12/13/22 10:11 XR chest 1V portable CLINICAL HISTORY: sob TECHNIQUE: Single frontal radiograph of the chest was obtained. Comparison: None available at the time of this dictation. FINDINGS: No lines and tubes are seen. Cardiomegaly is noted. Multifocal airspace opacities, right greater than left. No evidence of pleural effusion or pneumothorax. IMPRESSION: Multifocal airspace opacities are compatible with pneumonia with or without superimposed aspiration. ACT 112: Negative or not required by law. Electronically signed by: Pablo Peralta M.D. 12/13/2022 10:44 AM Abdomen/Pelvis CT 12/13/22 15:37 CT abd pelvis wo con CLINICAL HISTORY: r/o bowel ischemia TECHNIQUE: Helical axial images of the abdomen and pelvis were obtained. Automated dose lowering techniques and/or adjustment according to patient size were utilized for this exam. This exam was performed without intravenous contrast. CT DOSE: 2094.75 mGy.cm COMPARISON: None available at the time of this dictation. FINDINGS: Lower chest: For findings above the diaphragm, please see CT chest performed same day. Liver: Unremarkable. No focal lesions are seen. Gallbladder and biliary tree: Cholelithiasis is seen without evidence of cholecystitis. No intra- or extrahepatic biliary ductal dilation. Pancreas: Fatty replacement of the pancreas is seen. Spleen: Unremarkable. Adrenals: Nodularity of the adrenal glands is noted. Kidneys and ureters: Right exophytic renal cyst is seen. Bladder: Unremarkable. Reproductive organs: Prostatic calcifications are seen which may represent prior hemorrhage or granulomatous disease. Bowel: Diverticulosis is seen without evidence of diverticulitis. There is colonic resection near the rectum. The appendix is seen. A hiatal hernia is seen. Lymph nodes Retroperitoneal: Unremarkable. Pelvic: Unremarkable. Mesenteric: Unremarkable. Peritoneum: Calcifications are seen in the anterior pelvis. Vessels: Atherosclerotic calcifications are seen. Abdominal wall: Postsurgical changes are seen in the right abdominal wall. Bones: Left hip arthroplasty is seen. There is a neurostimulator with the battery pack in the right buttocks. IMPRESSION: No evidence of ischemic colitis. Postsurgical changes and additional findings as above. ACT 112: Negative or not required by law. Electronically signed by: Pablo Peralta M.D. 12/13/2022 5:[address] 12/13/22 15:44 CT chest diagnostic wo con CLINICAL HISTORY: AHRF, ?multifocal PNA vs pulm edema TECHNIQUE: Multidetector row helical CT of the chest was performed. Coronal and sagittal reformations were obtained. Automated dose lowering techniques and/or adjustment according to patient size were utilized for this exam. Comparison: None available at the time of this dictation. FINDINGS: Lungs and pleura: Bilateral small pleural effusion is seen. Multifocal groundglass and consolidative opacities are seen. There is thickening of the interlobular septa. Heart and pericardium: Mitral annular calcifications are seen. Vessels: Moderate atherosclerotic changes in the aorta and coronary arteries. Mediastinum and constantino: Mesenteric lymph nodes measure 18 mm in diameter. Chest wall and lower neck: Unremarkable. Abdomen: For findings below the diaphragm, please refer to CT of the abdomen dated the same. Bones: Degenerative changes in the thoracic spine. IMPRESSION: Extensive groundglass and consolidative opacities are seen throughout the lungs which likely represent pneumonia. Interlobular septal thickening may represent pulmonary edema. There are small bilateral pleural effusions. Follow-up to resolution is recommended. ACT 112: Negative or not required by law. Electronically signed by: Pablo Peralta M.D. 12/13/2022 5:15 PM Chest X-Ray 12/13/22 17:41 XR chest 1V portable CLINICAL HISTORY: intubation TECHNIQUE: Single frontal radiograph of the chest was obtained. Comparison: Comparison is made to chest radiograph 12/13/2022 FINDINGS: Endotracheal tube is seen measuring up to 44 mm from the staci. Cardiomegaly is noted. The aortic arch is calcified. Multifocal airspace opacities are seen. No evidence of pleural effusion or pneumothorax. IMPRESSION: Satisfactory appearance of endotracheal tube. Multifocal airspace opacities may represent atelectasis, pneumonia, and/or aspiration. ACT 112: Negative or not required by law. Electronically signed by: Pablo Peralta M.D. 12/13/2022 6:15 PM Chest X-Ray 12/13/22 19:20 XR chest 1V portable CLINICAL HISTORY: arrival to ICU- eval ETT and newly placed OGT TECHNIQUE: Single frontal radiograph of the chest was obtained. Comparison: Comparison is made to chest radiograph 12/13/2022 FINDINGS: Satisfactory appearance of endotracheal tube. Enteric tube side-port lies above the diaphragm. Cardiomegaly is noted. Multifocal airspace opacities are seen. No evidence of pleural effusion or pneumothorax. IMPRESSION: 1. Enteric tube side-port lies below the diaphragm and could be advanced approximately 8 cm for improved positioning. 2. Multifocal airspace opacities may represent atelectasis, pneumonia, and/or aspiration. Stable cardiomegaly. ACT 112: Negative or not required by law. Electronically signed by: Pablo Peralta M.D. 12/13/2022 7:43 PM Chest X-Ray 12/13/22 22:50 XR chest 1V portable CLINICAL HISTORY: s/p central line placement COMPARISON STUDY: Chest CT December 13, 2022. Chest radiograph 12/13/2022 at 7:21 PM. FINDINGS: Tip of endotracheal tube is 3.4 cm above the staci. Tip of nasogastric tube is below lower aspect of this image but at least within the proximal body of the stomach no pneumothorax following placement of a right internal jugular central line. Catheter tip projects over the distal SVC. Cardiomegaly is unchanged. There is no pneumothorax. Interstitial thickening and alveolar opacities persist. There are trace bilateral pleural effusions. IMPRESSION: 1. No pneumothorax following placement of a right internal jugular central line. Satisfactory positioning of lines and tubes. 2. No change in interstitial thickening consistent with pulmonary edema. Superimposed airspace opacities, greater within the right lung, similar to prior exam. The findings could reflect alveolar pulmonary edema or superimposed pneumonia. ACT 112: Negative or not required by law. Electronically signed by: Indio Lyons M.D. 12/14/2022 6:44 AM Chest X-Ray 12/14/22 05:00 XR chest 1V portable CLINICAL HISTORY: evaluate lines/tubes and lungs while intubated TECHNIQUE: Single frontal radiograph of the chest was obtained. Comparison: Comparison is made to chest radiograph 12/13/2022 FINDINGS: Lines and tubes are stable. Cardiomegaly is noted. Multifocal airspace opacities are seen. No evidence of pleural effusion or pneumothorax. IMPRESSION: Stable lines and tubes. Multifocal airspace opacities are again seen. ACT 112: Negative or not required by law. Electronically signed by: Pablo Peralta M.D. 12/14/2022 7:52 AM I & O Totals 24 Hours 12/13/22 12/14/22 12/15/22 06:59 06:59 06:59 Intake Total 2287.646 / 2287.646 293.995 / 293.995 Output Total 1276 / 1276 200 / 200 Balance 1011.646 / 1011.646 93.995 / 93.995 Cumulative 12/13/22 09:47 thru 12/14/22 09:31 Intake Total 2581.641 Output Total 1476 Balance 1105.641 RT Ventilator Mngmt (Last Documented) Ventilator Ordered Settings Ventilator Support Mode Assist Control 12/14/22 08:00 Respiratory Rate 22 12/14/22 07:26 Ventilator Tidal Volume 400 12/14/22 08:00 Setting Minute Ventilation 7 12/14/22 07:26 Positive End Expiratory 5 12/14/22 08:00 Pressure Fraction of Inspired Oxygen 55 12/14/22 08:00 Machine Comment changes made by SAUL Rothman 12/14/22 03:22 Ventilator - PT Measurements Respiratory Rate 22 Exhaled Tidal Volume 400 Minute Ventilation 7 Peak Inspiratory Airway 25 Pressure Plateau Pressure 21 Respiratory Cycle Inspiratory: 1:2.4 Expiratory Ratio Inspiratory Phase Time 0.80 End-Tidal CO2 40 Static Lung Compliance 25.00 Dynamic Lung Compliance 20.00 Normal Static Lung Compliance 45.00 Patient Measurements Comment Tube advanced post x-ray per Dr. Madera 25 -> 26 Coding Level of Care Code 36207 CRITICAL CARE 1ST 30-74M Diagnoses Acute hypoxemic respiratory failure J96.01 Endotracheally intubated Z97.8 Hypoxia R09.02 Acute systolic heart failure I50.21 Elevated troponin R77.8
[2022-12-14] MEDS ORDERED: amLODIPine BESYLATE 5 MG TAB PO SCH (09:00)
[2022-12-14] MEDS ORDERED: lisinopril 40 MG TAB PO SCH (09:00)
[2022-12-14] MEDS ORDERED: ATENOLOL 25 MG TABLET PO SCH (09:00)
[2022-12-14] MEDS ORDERED: FINASTERIDE 5 MG TAB PO SCH (09:00)
[2022-12-14] MEDS: VASOPRESSIN 20 UNITS in 0.9 % SODIUM CHLORIDE 100 ML IV SCH (09:11)
[2022-12-14 09:22] LABS: iSTAT Arterial Blood Gas HCO3 20 meg/L (19-24); iSTAT Arterial Blood Gas pCO2 77 mmHg (35-46); iSTAT Arterial Blood Gas pH 7.03 (7.35-7.45); iSTAT Arterial Blood Gas pO2 155 mmHg (80-95); iSTAT Carbon Dioxide 23 mmol/L (24-31)
[2022-12-14 09:22] LABS: iSTAT Arterial Blood Gas HCO3 30 meg/L (19-24); iSTAT Arterial Blood Gas pCO2 97 mmHg (35-46); iSTAT Arterial Blood Gas pH 7.09 (7.35-7.45); iSTAT Arterial Blood Gas pO2 194 mmHg (80-95); iSTAT Carbon Dioxide 33 mmol/L (24-31)
[2022-12-14 09:25] LABS: iSTAT Arterial Blood Gas HCO3 22 meg/L (19-24); iSTAT Arterial Blood Gas pCO2 87 mmHg (35-46); iSTAT Arterial Blood Gas pH 7.01 (7.35-7.45); iSTAT Arterial Blood Gas pO2 56 mmHg (80-95); iSTAT Carbon Dioxide 24 mmol/L (24-31)
[2022-12-14] MEDS ORDERED: BUMETANIDE 1 MG in SYRINGE 0 ML IV ONE ×2 (09:45→17:15)
[2022-12-14] MEDS ORDERED: PHARMACY GLYCEMIC MGMT CONSULT PRN (09:46)
[2022-12-14] MEDS: POTASSIUM CHLORIDE / WTR 20 MEQ/100 ML PLCT IV SCH ×4 (10:09→22:29)
[2022-12-14] MEDS: DOBUTamine / D5W 500 MG/250 ML BAG IV SCH (10:09)
[2022-12-14] MEDS: HEPARIN SOD 5,000 UNIT/0.5 ML VIAL SC SCH ×3 (10:13→20:22)
[2022-12-14] MEDS ORDERED: PANTOprazole 40 MG in SYRINGE 0 ML IV SCH (11:00)
--- NOTE | 2022-12-14 11:07 | Pharmacy Report ---
Pharmacy Glycemic Short Note 2 - Date of Service December 14, 2022 - Glycemic Short BSG Results (Last 24 hours): 12/13/22 12/13/22 12/13/22 11:45 11:50 19:59 Glucose 208 H POC Glucose 370 H* POC Glucose (other) 212 H 12/13/22 12/13/22 12/13/22 20:03 21:59 22:01 Glucose POC Glucose 397 H* 420 H* 377 H* POC Glucose (other) 12/13/22 12/13/22 12/14/22 22:28 23:57 00:55 Glucose 393 H* POC Glucose POC Glucose (other) 362 H* 342 H 12/14/22 12/14/22 12/14/22 01:55 03:04 03:58 Glucose POC Glucose POC Glucose (other) 307 H 277 H 244 H 12/14/22 12/14/22 12/14/22 04:27 04:50 06:02 Glucose 223 H POC Glucose POC Glucose (other) 215 H 170 H 12/14/22 12/14/22 12/14/22 07:02 08:21 09:16 Glucose POC Glucose POC Glucose (other) 140 H 114 H 93 12/14/22 12/14/22 09:54 10:28 Glucose POC Glucose POC Glucose (other) 93 98 OUTPATIENT ANTIDIABETIC REGIMEN: * Toujeo 54 units SC HS * Novolog 19 units SC TIDM * metformin 1gm PO BID * glipizide 5mg PO BID HbA1C: 7.3% (11/03/22) ASSESSMENT: * Patient is a 77 year old male admitted with acute hypoxemic respiratory failure requiring transfer to ICU and intubation. History of DM2 on insulin and oral medications at baseline. S/p 125mg X 1 IV methylprednisolone yesterday. BSGs cassy into 400s last evening and was initiated on an insulin infusion for hyperglycemia ~2200 last night. * Patient required pressor support overnight and receiving IV antibiotics. Extubated this AM. Continues on dobutamine infusion at this time. BSGs within goal range this AM. Insulin drip rate ~ 3unit/hr the past couple of hours. Remains NPO pending swallow eval. * Plan to transition to SQ this afternoon. Will give 15 units Lantus X 1. Overlap with drip X 1-2 hours and then can discontinue the drip if BSGs less than 200mg/dL and/or rate less than 3 unit/hr. Will add HS Lantus scale in addition. Novolog ACHS 20/8 once drip d/c'd. Will add overnight checks. PLAN FOR INPATIENT GLYCEMIC CONTROL: * Hold outpatient oral diabetes medications * Basal insulin * Lantus 15 units SQ X 1 + HS scale depending on BSG * Bolus insulin * NovoLog per scale ACHS or Q6hrs while NPO * Goal Range: Low 110 mg/dL - High 140 mg/dL * Correction Factor: none while drip still running, 20 mg/dL/unit once drip discontinued * Nutritional / Prandial insulin per carb ratio of 1 unit per 8 grams CHO consumed
[2022-12-14] MEDS: INSULIN ASPART PER UNIT CHARGE SC SCH ×4 (11:10→23:52)
[2022-12-14] MEDS: AZITHROMYCIN 500 MG in DEXTROSE 5% 250 ML IV SCH (11:10)
--- NOTE | 2022-12-14 12:55 | Cardiology Progress Note ---
Date of Service December 14, 2022 Assessment & Plan (1) Acute systolic heart failure: Plan: -improving on Lasix drip and IV dobutamine. -management per ICU team. (2) Coronary artery disease: Plan: -severe disease on catheterization yesterday, but no intervention necessary. -LAD stent was widely patent. (3) Left ventricular dysfunction: Plan: -LVEF 25-30% with apical akinesis. Will need referral to the CHF clinic. Admission and Anticipated Discharge Date Admission Date: December 13, 2022 Subjective The patient is sedated and on mechanical ventilation in the ICU. Physical Exam Physical Exam: In general this is an obese male intubated and on a ventilator. HEENT exam notes a ET tube in place. Neck is supple with full carotid upstrokes. Jugular venous pressure cannot be assessed. Cardiovascular exam reveals a regular rhythm distant heart sounds. No obvious murmurs. Lungs note coarse breath sounds anteriorly. Abdomen is obese without bruits. Extremities reveal 1+ pretibial edema Results & Data Vital Signs (Past 12 Hours) Vital Signs Temp Pulse Resp BP Pulse Ox O2 Del Method FiO2 12/14/22 08:00 55 12/14/22 08:00 64 12/14/22 08:00 Mechanical Vent 12/14/22 08:00 70 143/53 H 12/14/22 07:26 70 22 92 50 12/14/22 06:45 36.6 C 61 22 95 12/14/22 06:30 36.6 C 61 22 94 12/14/22 06:30 97/51 L 12/14/22 06:25 115/51 L 12/14/22 06:25 36.6 C 66 22 97 12/14/22 06:15 36.6 C 70 22 96 12/14/22 06:15 124/53 L 12/14/22 06:01 36.6 C 69 22 94 12/14/22 06:01 113/45 L 12/14/22 06:00 36.6 C 67 22 95 12/14/22 05:45 36.7 C 74 22 94 12/14/22 05:30 24 92 12/14/22 05:15 36.7 C 73 22 95 12/14/22 05:15 127/59 L 12/14/22 05:00 36.6 C 66 22 96 12/14/22 05:00 148/56 H 12/14/22 04:45 36.6 C 65 22 96 12/14/22 04:45 140/57 L 12/14/22 04:30 36.6 C 65 22 94 12/14/22 04:30 147/60 H 12/14/22 04:15 36.5 C 64 22 94 12/14/22 04:15 160/54 H 12/14/22 04:00 36.5 C 67 22 95 12/14/22 04:00 173/54 H 12/14/22 03:45 36.5 C 64 22 95 12/14/22 03:45 155/56 H 12/14/22 03:31 36.5 C 63 22 94 12/14/22 03:31 171/47 H 12/14/22 03:30 36.5 C 64 22 94 12/14/22 03:15 36.4 C L 64 22 96 12/14/22 03:15 135/84 12/14/22 03:00 36.4 C L 63 23 97 12/14/22 03:00 178/56 H 12/14/22 03:22 22 50 12/14/22 02:45 36.4 C L 66 19 96 12/14/22 02:45 167/58 H 12/14/22 02:30 36.4 C L 67 19 96 12/14/22 02:30 161/57 H 12/14/22 02:16 143/50 H 12/14/22 02:16 36.4 C L 68 22 95 12/14/22 02:15 36.4 C L 68 19 95 12/14/22 02:05 36.4 C L 62 22 96 12/14/22 02:05 134/51 L 12/14/22 02:01 36.3 C L 62 22 95 12/14/22 02:00 36.3 C L 61 22 95 12/14/22 01:56 36.3 C L 58 L 22 95 12/14/22 01:56 133/49 L 12/14/22 01:45 36.3 C L 59 L 22 95 12/14/22 01:45 152/69 H 12/14/22 01:30 36.3 C L 65 22 95 12/14/22 01:30 155/65 H 12/14/22 01:15 36.3 C L 68 22 96 12/14/22 02:05 59 L 22 95 60 12/14/22 01:00 36.2 C L 70 22 97 Diagnostic Findings monitor worker notes an occasional PVC. PG Care Time/CCT Total # of Minutes Spent Total Time Spent with Patient: Total time spent is greater than 50% in coordination of care (as documented) at patient's floor/unit and/or counseling patient: Coding Level of Care Code 34245 SUB INP/OBS CARE 3/50MIN Diagnoses Acute systolic heart failure I50.21 Coronary artery disease I25.10 Left ventricular dysfunction I51.9
[2022-12-14] MEDS ORDERED: LANTUS PER UNIT CHARGE SC ONE (14:30)
[2022-12-14] MEDS: CLOPIDOGREL BISULFATE 75 MG TAB PO SCH (15:46)
--- NOTE | 2022-12-14 16:37 | Electrocardiogram Report ---
Test Reason : Blood Pressure : / mmHG Vent. Rate : 124 BPM Atrial Rate : 041 BPM P-R Int : 000 ms QRS Dur : 136 ms QT Int : 352 ms P-R-T Axes : 000 -60 126 degrees QTc Int : 505 ms Poor data quality, interpretation may be adversely affected Probably atrial fibrillation Left axis deviation Left bundle branch block Abnormal ECG When compared with ECG of 13-DEC-2022 14:50, (unconfirmed) ST no longer depressed in Anterior leads T wave amplitude has increased in Inferior leads T wave inversion less evident in Lateral leads Confirmed by Mir Martin ([id number]) on 12/14/2022 4:37:00 PM Referred By: REFERRED SELF Confirmed By:Tramaine Martin
[2022-12-14] MEDS: DC IV INSULIN INFUSION 1 EA DEVI SCH ×2 (16:59→17:37)
--- NOTE | 2022-12-14 18:05 | Electrocardiogram Report ---
Test Reason : Blood Pressure : / mmHG Vent. Rate : 068 BPM Atrial Rate : 068 BPM P-R Int : 220 ms QRS Dur : 128 ms QT Int : 454 ms P-R-T Axes : 054 -52 162 degrees QTc Int : 482 ms Poor data quality, interpretation may be adversely affected Sinus rhythm with marked sinus arrhythmia with 1st degree A-V block Left axis deviation Non-specific intra-ventricular conduction delay Abnormal ECG When compared with ECG of 13-DEC-2022 10:14, (unconfirmed) T wave inversion now evident in Anterior leads Confirmed by Mir Martin ([id number]) on 12/14/2022 6:04:51 PM Referred By: REFERRED SELF Confirmed By:Tramaine Martin
--- NOTE | 2022-12-14 18:10 | Electrocardiogram Report ---
Test Reason : Blood Pressure : / mmHG Vent. Rate : 078 BPM Atrial Rate : 078 BPM P-R Int : 206 ms QRS Dur : 128 ms QT Int : 416 ms P-R-T Axes : 022 -52 144 degrees QTc Int : 474 ms Poor data quality, interpretation may be adversely affected Normal sinus rhythm with sinus arrhythmia Left axis deviation Non-specific intra-ventricular conduction delay Abnormal ECG No previous ECGs available Confirmed by Mir Martin ([id number]) on 12/14/2022 6:09:33 PM Referred By: REFERRED SELF Confirmed By:Tramaine Martin
--- NOTE | 2022-12-14 19:40 | Hospitalist Progress Note ---
Date of Service December 14, 2022 Assessment & Plan (1) Acute respiratory failure with hypoxia and hypercapnia: Plan: 2nd acute systolic CHF +/- pneumonia defer management to ICU physician + cardiology (2) Acute systolic heart failure: Plan: EF 25-30% likely ischemic cardiomyopathy remains on inotropic therapy with dobutamine cont diuresis defer management to ICU physician + cardiology (3) NSTEMI (non-ST elevated myocardial infarction): Plan: peak trop 45,000 s/p emergent heart cath by Dr Cruz severe CAD, but nothing requiring stenting appreciate cardiology assistance Rx the CHF (4) Multifocal pneumonia: Plan: CT chest with probable b/l pneumonia Cont cefepime + zithromax (5) Coronary artery disease: Plan: severe CAD based on current heart cath cont statin cont plavix resume beta nury down the line when off inotropes (6) KIANNA on CPAP: Plan: change CPAP to BIPAP given his hypercarbia (7) Benign essential hypertension: Plan: holding home BP meds (8) Hyperlipidemia: Plan: statin (9) BPH (benign prostatic hyperplasia): Plan: murcia in place holding flomax & finasteride for now (10) Diabetes mellitus type 2, insulin dependent: Plan: insulin drip per protocol (11) History of colorectal cancer: Plan: noted (12) Acute kidney injury: Plan: baseline Cr 1.1 to 1.3 peak Cr thus far 2.2 2nd to cardiorenal syndrome Rx his CHF creatinine should improve over time (13) Abnormal EKG: Plan: most recent EKG with ?a.fib telemetry defer management to cardiology Plan DVT proph - heparin 7500 units TID Admission and Anticipated Discharge Date Admission Date: December 13, 2022 Subjective events of last 24 hours noted patient intubated yesterday, remained on vent overnight, and extubated this am during my visit he was on NC O2 he was very sleepy he was able to wake up briefly but quickly went back to sleep he was able to tell me he is on CPAP at home for KIANNA he did have increased work of breathing during sleep Review of Systems Review of Systems: Unobtainable due to cognitive status Physical Exam Physical Exam: gen - obese, very sleepy/lethargic, increased work of breathing neck - central line right neck, unable to assess for JVD mouth - MM slightly dry heart - irregular, s1 s2, tachy lungs - b/l wheezes, b/l basilar rales, increased work of breathing with subcostal retractions abd - distended, BS+, NT, large scar midline, no HSM ext - <1+ edema b/l, pulses 2+ b/l psych - lethargic Results & Data Results & Data Vital Signs (Past 12 Hours) Vital Signs Temp Pulse Resp BP BP Pulse Ox O2 Del Method 12/14/22 18:00 37.4 C 84 20 96 Nasal Cannula 12/14/22 17:00 37.3 C 89 23 97 12/14/22 16:00 37.1 C 79 16 96 12/14/22 15:00 37.0 C 72 18 97 12/14/22 14:33 37.0 C 78 16 97 12/14/22 14:33 101/69 12/14/22 14:00 37.0 C 75 14 97 12/14/22 13:00 36.9 C 75 17 95 12/14/22 16:00 76 12/14/22 16:00 76 12/14/22 12:00 36.7 C 76 15 95 12/14/22 11:00 36.7 C 68 15 95 12/14/22 10:01 156/74 H 12/14/22 09:51 114/74 12/14/22 09:51 36.7 C 81 21 89 L 12/14/22 09:01 36.8 C 70 7 L 92 12/14/22 09:01 173/67 H 12/14/22 09:00 36.8 C 74 8 L 90 12/14/22 08:00 36.7 C 65 22 95 12/14/22 08:00 154/57 H 12/14/22 07:46 36.7 C 64 22 95 12/14/22 07:46 158/42 H 12/14/22 12:53 122/42 L 12/14/22 08:00 12/14/22 08:00 64 12/14/22 08:00 Mechanical Vent 12/14/22 08:00 70 143/53 H O2 Flow Rate FiO2 12/14/22 18:00 4 12/14/22 17:00 12/14/22 16:00 12/14/22 15:00 12/14/22 14:33 12/14/22 14:33 12/14/22 14:00 12/14/22 13:00 12/14/22 16:00 12/14/22 16:00 12/14/22 12:00 12/14/22 11:00 12/14/22 10:01 12/14/22 09:51 12/14/22 09:51 12/14/22 09:01 12/14/22 09:01 12/14/22 09:00 12/14/22 08:00 12/14/22 08:00 12/14/22 07:46 12/14/22 07:46 12/14/22 12:53 12/14/22 08:00 55 12/14/22 08:00 12/14/22 08:00 12/14/22 08:00 Laboratory Results Laboratory Results - last 24 hr 12/13/22 12/13/22 12/13/22 18:39 18:42 18:47 WBC RBC Hgb Hct MCV MCH MCHC RDW Std Deviation RDW Coeff of William Plt Count MPV Immature Gran % (Auto) Neut % (Auto) Lymph % (Auto) Ray % (Auto) Eos % (Auto) Baso % (Auto) Neut # (Auto) Lymph # (Auto) Ray # (Auto) Eos # (Auto) Baso # (Auto) Immature Gran # (Auto) POC pH 7.03 L* 7.01 L* 7.09 L* POC pCO2 77 H 87 H 97 H POC pO2 155 H 56 L 194 H POC HCO3 20 22 30 H POC Total CO2 23 L 24 33 H POC Base Excess -10.0 L -9.0 0.0 POC ABG O2 Sat 98.0 H 70.0 L 99.0 H Sodium Potassium Chloride Carbon Dioxide Anion Gap BUN Creatinine Est Cr Clr Drug Dosing Est GFR ( Amer) Est GFR (Non-Af Amer) BUN/Creatinine Ratio Glucose POC Glucose POC Glucose (other) Calcium Phosphorus Magnesium Troponin I High Sens 12/14/22 12/14/22 12/14/22 04:50 06:02 07:02 WBC RBC Hgb Hct MCV MCH MCHC RDW Std Deviation RDW Coeff of William Plt Count MPV Immature Gran % (Auto) Neut % (Auto) Lymph % (Auto) Ray % (Auto) Eos % (Auto) Baso % (Auto) Neut # (Auto) Lymph # (Auto) Ray # (Auto) Eos # (Auto) Baso # (Auto) Immature Gran # (Auto) POC pH POC pCO2 POC pO2 POC HCO3 POC Total CO2 POC Base Excess POC ABG O2 Sat Sodium Potassium Chloride Carbon Dioxide Anion Gap BUN Creatinine Est Cr Clr Drug Dosing Est GFR ( Amer) Est GFR (Non-Af Amer) BUN/Creatinine Ratio Glucose POC Glucose POC Glucose (other) 215 H 170 H 140 H Calcium Phosphorus Magnesium Troponin I High Sens 12/14/22 12/14/22 12/14/22 08:21 09:16 09:54 WBC RBC Hgb Hct MCV MCH MCHC RDW Std Deviation RDW Coeff of William Plt Count MPV Immature Gran % (Auto) Neut % (Auto) Lymph % (Auto) Ray % (Auto) Eos % (Auto) Baso % (Auto) Neut # (Auto) Lymph # (Auto) Ray # (Auto) Eos # (Auto) Baso # (Auto) Immature Gran # (Auto) POC pH POC pCO2 POC pO2 POC HCO3 POC Total CO2 POC Base Excess POC ABG O2 Sat Sodium Potassium Chloride Carbon Dioxide Anion Gap BUN Creatinine Est Cr Clr Drug Dosing Est GFR ( Amer) Est GFR (Non-Af Amer) BUN/Creatinine Ratio Glucose POC Glucose POC Glucose (other) 114 H 93 93 Calcium Phosphorus Magnesium Troponin I High Sens 12/14/22 12/14/22 12/14/22 10:28 10:59 11:06 WBC RBC Hgb Hct MCV MCH MCHC RDW Std Deviation RDW Coeff of William Plt Count MPV Immature Gran % (Auto) Neut % (Auto) Lymph % (Auto) Ray % (Auto) Eos % (Auto) Baso % (Auto) Neut # (Auto) Lymph # (Auto) Ray # (Auto) Eos # (Auto) Baso # (Auto) Immature Gran # (Auto) POC pH POC pCO2 POC pO2 POC HCO3 POC Total CO2 POC Base Excess POC ABG O2 Sat Sodium Potassium Chloride Carbon Dioxide Anion Gap BUN Creatinine Est Cr Clr Drug Dosing Est GFR ( Amer) Est GFR (Non-Af Amer) BUN/Creatinine Ratio Glucose POC Glucose POC Glucose (other) 98 104 H Calcium Phosphorus Magnesium Troponin I High Sens 99761.5 H* 12/14/22 12/14/22 12/14/22 12:24 13:31 14:22 WBC RBC Hgb Hct MCV MCH MCHC RDW Std Deviation RDW Coeff of William Plt Count MPV Immature Gran % (Auto) Neut % (Auto) Lymph % (Auto) Ray % (Auto) Eos % (Auto) Baso % (Auto) Neut # (Auto) Lymph # (Auto) Ray # (Auto) Eos # (Auto) Baso # (Auto) Immature Gran # (Auto) POC pH POC pCO2 POC pO2 POC HCO3 POC Total CO2 POC Base Excess POC ABG O2 Sat Sodium Potassium Chloride Carbon Dioxide Anion Gap BUN Creatinine Est Cr Clr Drug Dosing Est GFR ( Amer) Est GFR (Non-Af Amer) BUN/Creatinine Ratio Glucose POC Glucose POC Glucose (other) 141 H 148 H 132 H Calcium Phosphorus Magnesium Troponin I High Sens 12/14/22 12/14/22 12/14/22 15:47 16:42 18:27 WBC RBC Hgb Hct MCV MCH MCHC RDW Std Deviation RDW Coeff of William Plt Count MPV Immature Gran % (Auto) Neut % (Auto) Lymph % (Auto) Ray % (Auto) Eos % (Auto) Baso % (Auto) Neut # (Auto) Lymph # (Auto) Ray # (Auto) Eos # (Auto) Baso # (Auto) Immature Gran # (Auto) POC pH POC pCO2 POC pO2 POC HCO3 POC Total CO2 POC Base Excess POC ABG O2 Sat Sodium 134 L Potassium 4.4 D Chloride 100 Carbon Dioxide 24 Anion Gap 10 BUN 65 H Creatinine 2.19 H Est Cr Clr Drug Dosing 30.7 Est GFR ( Amer) 32.0 Est GFR (Non-Af Amer) 27.6 BUN/Creatinine Ratio 29.7 H Glucose 166 H POC Glucose 98 POC Glucose (other) 108 H Calcium 8.7 Phosphorus Magnesium Troponin I High Sens PG Care Time/CCT Total # of Minutes Spent Total Time Spent with Patient: Total time spent is greater than 50% in coordination of care (as documented) at patient's floor/unit and/or counseling patient: Coding Level of Care Code 39520 SUB INP/OBS CARE 25MIN Diagnoses Acute respiratory failure with hypoxia and hypercapnia J96.01; J96.02 Acute systolic heart failure I50.21 NSTEMI (non-ST elevated myocardial infarction) I21.4 Multifocal pneumonia J18.9 Coronary artery disease I25.10 KIANNA on CPAP G47.33; Z99.89 Benign essential hypertension I10 Hyperlipidemia E78.5 BPH (benign prostatic hyperplasia) N40.0 Diabetes mellitus type 2, insulin dependent E11.9; Z79.4 History of colorectal cancer Z85.048 Acute kidney injury N17.9 Abnormal EKG R94.31
[2022-12-14 19:44] LABS: BUN Creatinine Ratio 29.7 (10-20); Calcium 8.7 mg/dl (8.6-10.3); Creatinine Clr Calc Pharmacy 30.7 ml/min; Est GFR (Non-African American) 27.6 ml/min; Potassium 4.4 mmol/L (3.5-5.1)
[2022-12-14] MEDS: ATORVASTATIN 40 MG TAB PO SCH (20:22)
[2022-12-14] MEDS ORDERED: LANTUS PER UNIT CHARGE SC SCH (21:00)
[2022-12-14] MEDS: ALBUT/IPRATROP 3MG/0.5MG NEB 3 ML VIAL NEB PRN (21:04)
[2022-12-15] MEDS: ALBUT/IPRATROP 3MG/0.5MG NEB 3 ML VIAL NEB PRN ×5 (01:10→23:18)
[2022-12-15] MEDS: ERYTHROMYCIN OP OINT 5 MG/GM 3.5 GM TUBE OP SCH ×2 (02:38→07:45)
[2022-12-15] MEDS: INSULIN ASPART PER UNIT CHARGE SC SCH ×5 (04:04→20:27)
[2022-12-15 04:44] LABS: Basophils # (auto) 0.04 K/uL (0-0.2); Basophils % (auto) 0.3 %; Eosinophils # (auto) 0.04 K/uL (0-0.50); Eosinophils % (auto) 0.3 %; Hematocrit (blood only) 29.4 % (42.0-52.0); Hemoglobin 9.6 g/dl (14.0-18.0); Immature Granulocytes # (auto) 0.06 K/uL (0.01-0.20); Immature Granulocytes % (auto) 0.5 %; Lymphocytes # (auto) 1.46 K/uL (1.2-3.4); Lymphocytes % (auto) 12.3 %; Mean Corpuscular Hemoglobin 28.9 pg (25.0-34.0); Mean Corpuscular Hgb Conc 32.7 g/dL (32.0-36.0); Mean Corpuscular Volume 88.6 fL (80.0-100.0); Monocytes # (auto) 1.22 K/uL (0.11-0.59); Monocytes % (auto) 10.3 %; Neutrophils # (auto) 9.02 K/uL (1.40-6.50); Neutrophils % (auto) 76.3 %; Platelet Count 319 K/uL (130-400); RDW Coefficient of Variation 14.3 % (11.5-14.5); RDW Standard Deviation 46.3 fL (36.4-46.3); Red Blood Count 3.32 M/uL (4.70-6.10); White Blood Count 11.84 K/ul (4.8-10.8)
[2022-12-15 05:01] LABS: Calcium 8.6 mg/dl (8.6-10.3); Creatinine Clr Calc Pharmacy 30.5 ml/min; Est GFR (African American) 31.8 ml/min; Est GFR (Non-African American) 27.5 ml/min; Magnesium 2.2 mg/dl (1.7-2.4); Phosphorus 4.7 mg/dl (2.5-4.9); Potassium 4.7 mmol/L (3.5-5.1)
[2022-12-15] MEDS: CEFEPIME 2,000 MG in SYRINGE 0 ML IV SCH (06:08)
--- NOTE | 2022-12-15 07:25 | XRay Report ---
XR chest 1V portable CLINICAL HISTORY: evaluate lines/tubes and lungs while intubated COMPARISON STUDY: Chest CT December 13, 2022. Chest radiograph December 14, 2022. FINDINGS: The endotracheal and nasogastric tubes have been removed. A right internal jugular central line remains in place. There is no pneumothorax thorax or pleural effusion. Interstitial thickening p ersists. Bilateral airspace opacities have improved. Cardiomegaly is unchanged. IMPRESSION: 1. Interval removal of the endotracheal and nasogastric tubes. 2. Interstitial thickening and bilateral opacities which have improved. The findings may reflect pulm onary edema or multifocal pneumonia. ACT 112: Negative or not required by law. Electronically signed by: Indio Lyons M.D. 12/15/2022 7:24 AM
[2022-12-15] MEDS ORDERED: VANCOMYCIN LEVEL ONE (07:30)
[2022-12-15] MEDS: AZITHROMYCIN 500 MG in DEXTROSE 5% 250 ML IV SCH (07:44)
[2022-12-15] MEDS: HEPARIN SOD 5,000 UNIT/0.5 ML VIAL SC SCH ×3 (07:45→20:28)
[2022-12-15] MEDS: CLOPIDOGREL BISULFATE 75 MG TAB PO SCH (07:45)
[2022-12-15] MEDS ORDERED: BUMETANIDE 1 MG in SYRINGE 0 ML IV ONE (08:30)
[2022-12-15] MEDS ORDERED: LANTUS PER UNIT CHARGE SC SCH (09:00)
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
[2022-12-15] MEDS: SPIRONOLACTONE/HCTZ 25-25 PO SCH (10:28)
[2022-12-15] MEDS: ATENOLOL 25 MG TABLET PO SCH (10:28)
[2022-12-15] MEDS: ASPIRIN 81 MG CHEW PO SCH (10:28)
[2022-12-15] MEDS: VALSARTAN/SACUBITRIL 26/24MG TAB PO SCH ×2 (10:28→20:27)
--- NOTE | 2022-12-15 11:23 | Hospitalist Progress Note ---
Date of Service December 15, 2022 Assessment & Plan (1) Acute respiratory failure with hypoxia and hypercapnia: Plan: Secondary to acute systolic congestive heart failure and pneumonia Initially intubated, patient has been extubated Currently saturating well on 3 L of oxygen through nasal cannula (2) Acute systolic heart failure: Plan: No previous history EF 25-30% Initially thought to be ischemic cardiomyopathy, cardiac cath showed severe CAD Dobutamine drip has been discontinued cont diuresis Monitor i/o, daily weight Will need outpatient follow up with heart failure clinic Appreciate cardiology recs (3) NSTEMI (non-ST elevated myocardial infarction): Plan: peak trop 45,000 s/p emergent heart cath by Dr Cruz severe CAD, but nothing requiring stenting appreciate cardiology assistance Rx the CHF (4) Multifocal pneumonia: Plan: CT chest with probable b/l pneumonia Cont cefepime + zithromax Cultures negative so far (5) Coronary artery disease: Plan: severe CAD based on current heart cath cont statin cont plavix resume beta nury down the line when off inotropes (6) KIANNA on CPAP: Plan: change CPAP to BIPAP given his hypercarbia (7) Benign essential hypertension: Plan: holding home BP meds (8) Hyperlipidemia: Plan: statin (9) BPH (benign prostatic hyperplasia): Plan: murcia in place holding flomax & finasteride for now (10) Diabetes mellitus type 2, insulin dependent: Plan: insulin drip per protocol (11) History of colorectal cancer: Plan: noted (12) Acute kidney injury: Plan: baseline Cr 1.1 to 1.3 peak Cr thus far 2.2 2nd to cardiorenal syndrome Rx his CHF creatinine should improve over time (13) Abnormal EKG: Plan: most recent EKG with ?a.fib telemetry defer management to cardiology Plan DVT proph - heparin 7500 units TID Admission and Anticipated Discharge Date Admission Date: December 13, 2022 Subjective Patient seen and examined today, still with some stridor but states shortness of breath is much improved. He has been extubated Review of Systems Review of Systems: All systems reviewed are negative, apart from the ones contained in the history. Physical Exam Physical Exam: The patient is awake, alert and oriented 3, well developed and well nourished, normocephalic and atraumatic, lying in bed and in no acute distress. HEENT--PERRL, EOMI, mucous membranes and oropharynx mildly dry Neck--supple. No JVD. No bruits. Thyroid normal, trachea midline, no adenopathy. Heart--normal S1 and S2. No murmurs, rubs or gallops. Lungs--clear bilaterally, no respiratory distress, no accessory muscle use. stridor Abdomen--normal bowel sounds and soft. Mild epigastric and left sided abdominal pain Extremities--no cyanosis or clubbing. No edema. Dermatologic--normal skin turgor, normal color, no abnormal lymph nodes, no rash. Neurologic--cranial nerves II through XII grossly intact. Rheumatologic--normal range of motion. Psychiatric--normal affect. Results & Data Results & Data Vital Signs (Past 12 Hours) Vital Signs Temp Pulse Pulse Resp BP Pulse Ox O2 Del Method 12/15/22 10:00 100.0 F H 105 H 26 H 93 12/15/22 09:00 100.0 F H 105 H 25 H 94 12/15/22 08:00 Nasal Cannula 12/15/22 08:00 99.9 F H 107 H 28 H 94 Nasal Cannula 12/15/22 07:55 99.9 F H 108 H 26 H 96 12/15/22 07:55 157/86 H 12/15/22 07:00 99.3 F 85 24 96 12/15/22 07:30 88 22 96 Nasal Cannula 12/15/22 06:15 99.3 F 84 21 97 12/15/22 06:00 99.3 F 80 20 98 12/15/22 05:45 99.3 F 73 17 97 12/15/22 05:30 99.3 F 73 19 97 12/15/22 05:15 99.3 F 74 17 98 12/15/22 05:00 99.3 F 86 22 98 12/15/22 04:45 99.3 F 75 19 97 12/15/22 04:30 99.1 F 79 20 97 12/15/22 04:15 99.1 F 77 20 98 12/15/22 04:00 99.1 F 74 21 98 12/15/22 03:45 99.1 F 73 21 97 12/15/22 03:30 99.1 F 86 22 97 12/15/22 03:15 99.1 F 73 22 96 12/15/22 03:00 99.3 F 78 21 96 12/15/22 02:45 99.3 F 82 30 H 98 12/15/22 02:30 99.3 F 75 21 97 12/15/22 02:15 99.3 F 76 19 99 12/15/22 02:00 99.3 F 73 17 97 12/15/22 01:45 99.3 F 68 17 97 12/15/22 01:30 99.3 F 81 25 H 97 12/15/22 01:15 99.3 F 76 18 99 12/15/22 01:00 99.3 F 90 25 H 97 12/15/22 00:45 99.3 F 77 19 97 12/15/22 00:30 99.5 F 82 20 97 12/15/22 00:15 99.3 F 74 19 97 12/15/22 00:00 99.3 F 81 22 97 12/14/22 23:45 99.5 F 82 19 97 12/15/22 02:28 70 22 95 12/15/22 01:43 76 12/15/22 01:10 74 21 96 BiPAP 12/14/22 23:30 99.5 F 72 16 96 12/14/22 23:21 74 17 97 O2 Flow Rate FiO2 12/15/22 10:00 12/15/22 09:00 12/15/22 08:00 3 12/15/22 08:00 3 12/15/22 07:55 12/15/22 07:55 12/15/22 07:00 12/15/22 07:30 3 12/15/22 06:15 12/15/22 06:00 12/15/22 05:45 12/15/22 05:30 12/15/22 05:15 12/15/22 05:00 12/15/22 04:45 12/15/22 04:30 12/15/22 04:15 12/15/22 04:00 12/15/22 03:45 12/15/22 03:30 12/15/22 03:15 12/15/22 03:00 12/15/22 02:45 12/15/22 02:30 12/15/22 02:15 12/15/22 02:00 12/15/22 01:45 12/15/22 01:30 12/15/22 01:15 12/15/22 01:00 12/15/22 00:45 12/15/22 00:30 12/15/22 00:15 12/15/22 00:00 12/14/22 23:45 12/15/22 02:28 30 12/15/22 01:43 12/15/22 01:10 30 12/14/22 23:30 12/14/22 23:21 30 PG Care Time/CCT Total # of Minutes Spent Total Time Spent with Patient: Total time spent is greater than 50% in coordination of care (as documented) at patient's floor/unit and/or counseling patient: Coding Level of Care Code 11682 SUB INP/OBS CARE 2/35MIN Diagnoses Acute respiratory failure with hypoxia and hypercapnia J96.01; J96.02 Acute systolic heart failure I50.21 NSTEMI (non-ST elevated myocardial infarction) I21.4 Multifocal pneumonia J18.9 Coronary artery disease I25.10 KIANNA on CPAP G47.33; Z99.89 Benign essential hypertension I10 Hyperlipidemia E78.5 BPH (benign prostatic hyperplasia) N40.0 Diabetes mellitus type 2, insulin dependent E11.9; Z79.4 History of colorectal cancer Z85.048 Acute kidney injury N17.9 Abnormal EKG R94.31 Time Spent (min) 35
--- NOTE | 2022-12-15 12:00 | Pharmacy Report ---
Pharmacy Glycemic Short Note 2 - Date of Service December 15, 2022 - Glycemic Short BSG Results (Last 24 hours): 12/14/22 12/14/22 12/14/22 12:24 13:31 14:22 Glucose POC Glucose POC Glucose (other) 141 H 148 H 132 H 12/14/22 12/14/22 12/14/22 15:47 16:42 18:27 Glucose 166 H POC Glucose 98 POC Glucose (other) 108 H 12/14/22 12/14/22 12/15/22 20:15 23:48 03:59 Glucose POC Glucose 197 H POC Glucose (other) 165 H 188 H 12/15/22 12/15/22 12/15/22 04:28 07:40 10:57 Glucose 192 H POC Glucose 213 H 200 H POC Glucose (other) OUTPATIENT ANTIDIABETIC REGIMEN: * Toujeo 54 units SC HS * Novolog 19 units SC TIDM * metformin 1gm PO BID * glipizide 5mg PO BID HbA1C: 7.3% (11/03/22) ASSESSMENT: 12/15: * BSGs [phone]/dL the last 24h. Insulin drip discontinued ~1730 yesterday. Received 15 units of SQ basal and 3 units of bolus insulin during transition. * Diet advanced to full liquids. IV antibiotics adjusted to PO azithromycin monotherapy. Pressors have been weaned. * Fasting BSG elevated to 213mg/dL this AM - will give 15 units of lantus BID today and titrate based upon BSGs/advancement of diet. Novolog carb ratio tightened today at lunch. 12/14: * Patient is a 77 year old male admitted with acute hypoxemic respiratory failure requiring transfer to ICU and intubation. History of DM2 on insulin and oral medications at baseline. S/p 125mg X 1 IV methylprednisolone yesterday. BSGs cassy into 400s last evening and was initiated on an insulin infusion for hyperglycemia ~2200 last night. * Patient required pressor support overnight and receiving IV antibiotics. Extubated this AM. Continues on dobutamine infusion at this time. BSGs within goal range this AM. Insulin drip rate ~ 3unit/hr the past couple of hours. Remains NPO pending swallow eval. * Plan to transition to SQ this afternoon. Will give 15 units Lantus X 1. Overlap with drip X 1-2 hours and then can discontinue the drip if BSGs less than 200mg/dL and/or rate less than 3 unit/hr. Will add HS Lantus scale in addition. Novolog ACHS 20/8 once drip d/c'd. Will add overnight checks. PLAN FOR INPATIENT GLYCEMIC CONTROL: * Hold outpatient oral diabetes medications * Basal insulin * Lantus 15 units SQ BID * Bolus insulin * NovoLog per scale ACHS or Q6hrs while NPO * Goal Range: Low 110 mg/dL - High 140 mg/dL * Correction Factor: 20 mg/dL/unit * Nutritional / Prandial insulin per carb ratio of 1 unit per 7 grams CHO consumed
[2022-12-15] MEDS: LANTUS PER UNIT CHARGE SC SCH (20:27)
[2022-12-15] MEDS: ATORVASTATIN 40 MG TAB PO SCH (20:28)
[2022-12-16] MEDS: ALBUT/IPRATROP 3MG/0.5MG NEB 3 ML VIAL NEB PRN ×2 (02:21→07:12)
[2022-12-16 06:04] LABS: Basophils # (auto) 0.03 K/uL (0-0.2); Basophils % (auto) 0.2 %; Eosinophils # (auto) 0.08 K/uL (0-0.50); Eosinophils % (auto) 0.5 %; Hematocrit (blood only) 31.3 % (42.0-52.0); Hemoglobin 10.4 g/dl (14.0-18.0); Immature Granulocytes % (auto) 0.7 %; Lymphocytes # (auto) 1.65 K/uL (1.2-3.4); Lymphocytes % (auto) 10.8 %; Mean Corpuscular Hemoglobin 29.2 pg (25.0-34.0); Mean Corpuscular Hgb Conc 33.2 g/dL (32.0-36.0); Mean Corpuscular Volume 87.9 fL (80.0-100.0); Mean Platelet Volume 9.9 fL (9.4-12.4); Monocytes # (auto) 1.25 K/uL (0.11-0.59); Monocytes % (auto) 8.2 %; Neutrophils # (auto) 12.16 K/uL (1.40-6.50); Neutrophils % (auto) 79.6 %; Platelet Count 342 K/uL (130-400); RDW Coefficient of Variation 14.1 % (11.5-14.5); RDW Standard Deviation 45.5 fL (36.4-46.3); Red Blood Count 3.56 M/uL (4.70-6.10); White Blood Count 15.27 K/ul (4.8-10.8)
[2022-12-16 06:21] LABS: BUN Creatinine Ratio 40.4 (10-20); Creatinine Clr Calc Pharmacy 39.6 ml/min; Est GFR (African American) 43.2 ml/min; Est GFR (Non-African American) 37.3 ml/min; Magnesium 2.3 mg/dl (1.7-2.4); Phosphorus 4.4 mg/dl (2.5-4.9); Potassium 4.1 mmol/L (3.5-5.1)
[2022-12-16] MEDS ORDERED: FUROSEMIDE 40 MG/4 ML VIAL IV ONE ×2 (07:43→07:47)
[2022-12-16] MEDS: VALSARTAN/SACUBITRIL 26/24MG TAB PO SCH ×2 (08:12→21:31)
[2022-12-16] MEDS: CLOPIDOGREL BISULFATE 75 MG TAB PO SCH (08:12)
[2022-12-16] MEDS: SPIRONOLACTONE/HCTZ 25-25 PO SCH (08:12)
[2022-12-16] MEDS: HEPARIN SOD 5,000 UNIT/0.5 ML VIAL SC SCH ×2 (08:12→13:25)
[2022-12-16] MEDS: ATENOLOL 25 MG TABLET PO SCH (08:12)
[2022-12-16] MEDS: AZITHROMYCIN 250 MG TAB PO SCH (08:12)
[2022-12-16] MEDS: ASPIRIN 81 MG CHEW PO SCH (08:12)
[2022-12-16] MEDS: INSULIN ASPART PER UNIT CHARGE SC SCH ×4 (08:15→21:35)
[2022-12-16] MEDS: LANTUS PER UNIT CHARGE SC SCH ×2 (08:16→21:39)
--- NOTE | 2022-12-16 08:16 | XRay Report ---
XR chest 1V portable CLINICAL HISTORY: sob TECHNIQUE: Single frontal radiograph of the chest was obtained. Comparison: Comparison is made to chest radiograph 12/15/2022 FINDINGS: Patient is status post removal of right venous catheter. Cardiomegaly is noted. Increased airspace op acity is seen in the right lung. Pulmonary vascular congestion is seen. No evidence of pleural effusi on or pneumothorax. IMPRESSION: 1. Cardiomegaly and moderate pulmonary edema. 2. Worsening of right pulmonary opacities which may reflect aspiration, pneumonia, atelectasis, and/ or alveolar edema. ACT 112: Negative or not required by law. Electronically signed by: Pablo Peralta M.D. 12/16/2022 8:15 AM
[2022-12-16] MEDS: CEFEPIME 2,000 MG in SYRINGE 0 ML IV SCH ×2 (08:29→21:33)
--- NOTE | 2022-12-16 09:39 | Pulmonary Consultation ---
Date of Consultation December 16, 2022 Assessment & Plan (1) Acute respiratory failure with hypoxia and hypercapnia: (2) KIANNA on CPAP: (3) Multifocal pneumonia: (4) Acute hypoxemic respiratory failure: Plan Impression: 77-year-old male with a ventricular failure and mild valvular heart disease with diffuse pulmonary infiltrates and hypoxemic respiratory failure with continued increased work of breathing. He is currently on antibiotics. His white count is elevated. He did have small pleural effusions as well. Recommendations: 1. Hypoxemic respiratory failure with pulmonary infiltrates: Differential is broad. Infectious and hydrostatic pulmonary edema etiologies remain on the differential. Recommend continued diuresis. Would continue antibiotics for now. Check procalcitonin. Depending on clinical course could consider bronchoscopy although sputum samples in the past have been negative. Check Legionella urinary antigen. Recheck BMP. 2. Sleep disordered breathing: Continue CPAP at night. 3. Continue incentive spirometry and flutter valve patient is expectorating phlegm easily so I do not think mucolytic's are required. We will follow closely with you. If his condition should worsen, consideration for bronchoscopy with BAL might be appropriate although given his tenuous respiratory status, this may be somewhat difficult. Thanks for the opportunity participating in the care of this patient. Total of 55 minutes was spent in evaluation management coordinating care for this patient History of Present Illness Attending Physician: Teodora Owusu MD History of Present Illness Asked by hospitalist to evaluate this patient with multifocal pulmonary opacities and hypoxemic respiratory failure. The patient is known to me from sleep clinic. This 77-year-old male with a history of diabetes hypertension and coronary disease was admitted to the facility 12/13/2022 with hypoxemic respiratory failure. His echo showed reduced ejection fraction. He was taken to the [facility] which demonstrated severe chronic multivessel coronary disease. LVEDP was 37 with a right atrial pressure of 16 and postcapillary pulmonary hypertension was noted with a high cardiac output at 6.6 L/min and a PA sat of 70%. Diuresis was recommended. The patient was eventually weaned off of high flow noninvasive and transferred to the floor. Of note he did have a sputum culture obtained which is shown no growth. He has been placed on cefepime and azithromycin for possible pneumonia. Patient reports that he continues to have respiratory issues. His son is suffering from similar symptoms at home. He is coughing up brown sputum with no blood noted although he did describe some pinkish material on 1 occasion. He states his breathing is marginally better from when he came into the hospital. He has not noted any significant lower extremity edema. Allergies Allergy/AdvReac Type Severity Reaction Status Date / Time amoxicillin [From Augmentin] AdvReac Unknown GI upset Verified 12/11/22 15:39 clavulanic acid AdvReac Unknown GI upset Verified 12/11/22 15:39 [From Augmentin] Home Medications Medication Instructions Recorded Confirmed Type aspirin 81 mg tablet,delayed 81 mg PO QPM 03/17/19 12/13/22 History release (Aspir-) diphenoxylate-atropine 2.5 1 tab PO Q6H PRN diarrhea #120 tabs 10/20/19 12/13/22 Rx mg-0.025 mg tablet Auto Titrating CPAP #1 ea 10/21/21 12/11/22 Rx albuterol sulfate 90 mcg/actuation 1 - 2 inh inhalation QID #18 grams 12/02/21 12/13/22 Rx aerosol inhaler glipizide 5 mg tablet 5 mg PO BID #180 tabs 12/29/21 12/13/22 Rx pen needle, diabetic 32 gauge x #100 ea 01/28/22 12/11/22 Rx 5/32" CPAP Machine #1 ea 04/30/22 12/11/22 Rx clopidogrel 75 mg tablet (Plavix) 75 mg PO DAILY #90 tabs 07/22/22 12/13/22 Rx metformin 500 mg tablet 1,000 mg PO BID #120 tabs 08/03/22 12/13/22 Rx amlodipine 10 mg tablet 10 mg PO QAM Hypertension #90 tabs 09/01/22 12/13/22 Rx atorvastatin 40 mg tablet 40 mg PO PM #90 tabs 09/01/22 12/13/22 Rx lisinopril 40 mg tablet 40 mg PO DAILY #90 tabs 09/14/22 12/13/22 Rx insulin aspart U-100 100 unit/mL 19 unit (0.19 mL) subcut TID #15 mL 10/16/22 12/13/22 Rx (3 mL) subcutaneous pen (Novolog FlexPen U-100 Insulin aspart) hydrochlorothiazide 12.5 mg tablet 12.5 mg PO TID #90 tabs 10/19/22 12/13/22 Rx blood sugar diagnostic (OneTouch See Rx Instructions .Route 10/26/22 12/11/22 Rx Ultra Test strips) .COMPLEX #200 ea insulin glargine U-300 conc 300 54 unit (0.18 mL) subcut .qhs #3 mL 11/10/22 12/13/22 Rx unit/mL (3 mL) subcutaneous pen (Toujeo Max U-300 SoloStar) tamsulosin 0.4 mg capsule (Flomax) 0.8 mg PO QPM #180 caps 11/23/22 12/13/22 Rx atenolol 25 mg tablet 25 mg PO QAM #90 tabs 12/01/22 12/13/22 Rx doxycycline hyclate 100 mg capsule 100 mg PO BID 7 days #14 caps 12/11/22 12/13/22 Rx erythromycin 5 mg/gram (0.5 %) eye 1 applic ophthalmic (eye) Q6H 7 12/11/22 12/13/22 Rx ointment days #3.5 grams Patient History Medical History (Updated 12/15/22 @ 06:23 by Kentrell Aviles MD) Acute hypoxemic respiratory failure Acute systolic heart failure Bowel incontinence BPH (benign prostatic hyperplasia) Cancer COLO-RECTAL Cardiac murmur A CHILD Chronic diarrhea Coronary artery disease s/p cath x2, 3 stents Endotracheally intubated Hyperlipidemia Kidney stones HX Osteoarthritis Surgical History History of bowel resection WITH ILEOSTOMY-CHEMO/RADIATION 2010 History of cardiac cath 11/2016 1 STENT 05/2017 2 STENTS-F/U DR CHACON History of herniorrhaphy History of reversal of ileostomy History of total hip arthroplasty LEFT History of vascular access device PORT PLACEMENT AND REMOVAL Previous back surgery LOWER BACK Status post insertion of spinal cord stimulator FOR BOWEL [id number] WILL BRING REMOTE Family History Son Family history of diabetes mellitus Mother Family history of diabetes mellitus Sister Breast cancer Denies family history of Ovarian cancer Prostate cancer Myocardial infarction Colorectal cancer Social History Smoking Status: Never smoker Second Hand Exposure: No; Do You Dip or Chew Tobacco: No; Hx Alcohol Use: No Hx Substance Use: No Preferred Language: Malay Communication Ability: Effective Visual Impairment: No Limitations Hearing Ability: Hard of Hearing [employer] Supervisor Required: No Beliefs That Will Affect Care: None marital status: Current Living Situation: Family current occupational status: retired Other Information That Helps Us Care for You: No Feels Safe at Home: Yes Safety Concerns: Feels Safe At This Time Childhood Exposure to Second-Hand Smoke: Yes Diet: regular Diet Comment: regular Dental Care, Regularly: No Physical Activity Frequency: Does not Exercise Seatbelt Use: always Sunscreen Use: No Assistive Devices: Cane and CPAP Review of Systems Review of Systems: All systems reviewed & are unremarkable except as noted in Subjective Physical Exam Constitutional: WD/WN, vitals as above Neck: trachea midline, no thyromegaly Respiratory: + labored breathing and + tachypneic; no respiratory distress Auscultation: + crackles and + rhonchi; no wheezes Cardiovascular: RRR, no murmur, no edema Gastrointestinal (Abdomen): normal bowel sounds, soft, nontender, no hepatosplenomegaly Musculoskeletal: Extremities: extremities normal to inspection Skin: no rashes, warm and dry Neurologic: Nonfocal exam Lymphatic: no cervical lymphadenopathy Results & Data Results & Data Vital Signs (Past 12 Hours) Vital Signs Temp Pulse Pulse Pulse Resp BP BP 12/16/22 08:02 37.2 C 72 16 139/73 12/16/22 07:45 74 12/16/22 07:13 71 28 H 12/16/22 04:23 64 25 H 12/16/22 04:22 65 28 H 12/16/22 03:14 36.0 C L 72 22 126/78 12/16/22 02:22 71 26 H 12/16/22 02:21 71 26 H 12/15/22 23:21 58 L 28 H 12/15/22 23:19 58 L 28 H 12/15/22 23:17 71 12/15/22 22:29 12/15/22 22:29 36.9 C 77 20 129/73 Pulse Ox O2 Del Method O2 Flow Rate FiO2 12/16/22 08:02 90 Nasal Cannula 3 12/16/22 07:45 12/16/22 07:13 90 Nasal Cannula 3 12/16/22 04:23 94 30 12/16/22 04:22 94 BiPAP 30 12/16/22 03:14 96 CPAP 12/16/22 02:22 96 30 12/16/22 02:21 96 BiPAP 30 12/15/22 23:21 96 30 12/15/22 23:19 96 BiPAP 30 12/15/22 23:17 12/15/22 22:29 Nasal Cannula, BiPAP 2 12/15/22 22:29 93 Nasal Cannula 2 Critical Care Results & Data Vital Signs (Past 12 Hours) Vital Signs Temp Pulse Pulse Pulse Resp BP BP 12/16/22 08:02 37.2 C 72 16 139/73 12/16/22 07:45 74 12/16/22 07:13 71 28 H 12/16/22 04:23 64 25 H 12/16/22 04:22 65 28 H 12/16/22 03:14 36.0 C L 72 22 126/78 12/16/22 02:22 71 26 H 12/16/22 02:21 71 26 H 12/15/22 23:21 58 L 28 H 12/15/22 23:19 58 L 28 H 12/15/22 23:17 71 12/15/22 22:29 12/15/22 22:29 36.9 C 77 20 129/73 Pulse Ox O2 Del Method O2 Flow Rate FiO2 12/16/22 08:02 90 Nasal Cannula 3 12/16/22 07:45 12/16/22 07:13 90 Nasal Cannula 3 12/16/22 04:23 94 30 12/16/22 04:22 94 BiPAP 30 12/16/22 03:14 96 CPAP 12/16/22 02:22 96 30 12/16/22 02:21 96 BiPAP 30 12/15/22 23:21 96 30 12/15/22 23:19 96 BiPAP 30 12/15/22 23:17 12/15/22 22:29 Nasal Cannula, BiPAP 2 12/15/22 22:29 93 Nasal Cannula 2 Lab & Micro Results (Past 24 Hours) RBC 3.56 M/uL (4.70-6.10) L 12/16/22 WBC 15.27 K/ul (4.8-10.8) H 12/16/22 Hgb 10.4 g/dl (14.0-18.0) L 12/16/22 Hct 31.3 % (42.0-52.0) L 12/16/22 MCV 87.9 fL (80.0-100.0) 12/16/22 MCH 29.2 pg (25.0-34.0) 12/16/22 MCHC 33.2 g/dL (32.0-36.0) 12/16/22 RDW Standard Deviation 45.5 fL (36.4-46.3) 12/16/22 RDW Coefficient of Variation 14.1 % (11.5-14.5) 12/16/22 Plt Count 342 K/uL (130-400) 12/16/22 MPV 9.9 fL (9.4-12.4) 12/16/22 Neutrophils (%) (Auto) 79.6 % 12/16/22 Lymphocytes (%) (Auto) 10.8 % 12/16/22 Monocytes # (Auto) 1.25 K/uL (0.11-0.59) H 12/16/22 Eosinophils # (Auto) 0.08 K/uL (0-0.50) 12/16/22 Immature Granulocyte % (Auto) 0.7 % 12/16/22 Neutrophils # (Auto) 12.16 K/uL (1.40-6.50) H 12/16/22 Lymphocytes # (Auto) 1.65 K/uL (1.2-3.4) 12/16/22 Monocytes # (Auto) 1.25 K/uL (0.11-0.59) H 12/16/22 Eosinophils # (Auto) 0.08 K/uL (0-0.50) 12/16/22 Basophils # (Auto) 0.03 K/uL (0-0.2) 12/16/22 Immature Granulocyte # (Auto) 0.10 K/uL (0.01-0.20) 3 Na 137 mmol/L (136-145) 12/16/22 K 4.1 mmol/L (3.5-5.1) 12/16/22 Cl 102 mmol/L (98-107) 12/16/22 CO2 24 mmol/L (21-32) 12/16/22 Anion Gap 11 (3-11) 12/16/22 BUN 69 mg/dl (6-23) H 12/16/22 Creatinine 1.71 mg/dl (0.6-1.4) H 12/16/22 Estimated GFR ( Amer) 43.2 ml/min 12/16/22 Estimated GFR (Non-Af Amer) 37.3 ml/min 12/16/22 BUN/Creatinine Ratio 40.4 (10-20) H 12/16/22 Glu 152 mg/dl (70-99(Fasting)) H 12/16/22 Ca 9.0 mg/dl (8.6-10.3) 12/16/22 Phosphorus Level 4.4 mg/dl (2.5-4.9) 12/16/22 Mg 2.3 mg/dl (1.7-2.4) 12/16/22 05:43 Calcium Level 9.0 mg/dl (8.6-10.3) 12/16/22 05:43 Microbiology 12/13/22 11:50 Aerobic Blood Culture - Preliminary Blood No growth in Aerobic bottle after 48 hours. Anaerobic Blood Culture - Preliminary No growth in Anaerobic bottle after 48 hours. 12/13/22 11:19 Aerobic Blood Culture - Preliminary Blood No growth in Aerobic bottle after 48 hours. Anaerobic Blood Culture - Final 12/13/22 19:51 Gram Stain - Final Sputum, Expectorated Sputum Culture - Final Scant normal tobin. Diagnostic Findings (Past 24 Hours) Chest X-Ray 12/16/22 07:42 XR chest 1V portable CLINICAL HISTORY: sob TECHNIQUE: Single frontal radiograph of the chest was obtained. Comparison: Comparison is made to chest radiograph 12/15/2022 FINDINGS: Patient is status post removal of right venous catheter. Cardiomegaly is noted. Increased airspace opacity is seen in the right lung. Pulmonary vascular congestion is seen. No evidence of pleural effusion or pneumothorax. IMPRESSION: 1. Cardiomegaly and moderate pulmonary edema. 2. Worsening of right pulmonary opacities which may reflect aspiration, pneumonia, atelectasis, and/or alveolar edema. ACT 112: Negative or not required by law. Electronically signed by: Pablo Peralta M.D. 12/16/2022 8:15 AM I & O Totals 24 Hours 12/15/22 12/16/22 12/17/22 06:59 06:59 06:59 Intake Total 6884.747 / 1474.749 825.538 / 825.538 Output Total 3055 / 3055 2176 / 2176 Balance -1580.251 / -1580.251 -1350.462 / -1350.462 Cumulative 12/13/22 09:47 thru 12/16/22 06:00 Intake Total 4587.933 Output Total 6507 Balance -1919.067 RT Ventilator Mngmt (Last Documented) Ventilator Ordered Settings Ventilator Support Mode Assist Control 12/14/22 08:00 Respiratory Rate 16 12/16/22 08:02 Ventilator Tidal Volume 400 12/14/22 08:00 Setting Minute Ventilation 7 12/14/22 07:26 Positive End Expiratory 5 12/14/22 08:00 Pressure Fraction of Inspired Oxygen 30 12/16/22 04:23 Machine Comment changes made by SAUL Rothman 12/14/22 03:22 Ventilator - PT Measurements Respiratory Rate 16 Exhaled Tidal Volume 400 Minute Ventilation 7 Peak Inspiratory Airway 25 Pressure Plateau Pressure 21 Respiratory Cycle Inspiratory: 1:2.4 Expiratory Ratio Inspiratory Phase Time 0.80 End-Tidal CO2 47 Static Lung Compliance 25.00 Dynamic Lung Compliance 20.00 Normal Static Lung Compliance 45.00 Patient Measurements Comment Tube advanced post x-ray per Dr. Madera 25 -> 26 PG Care Time/CCT Total # of Minutes Spent Total Time Spent with Patient: Total time spent is greater than 50% in coordination of care (as documented) at patient's floor/unit and/or counseling patient: Coding Level of Care Code 64565 INT INP/OBS CARE 3/75MIN Diagnoses Acute respiratory failure with hypoxia and hypercapnia J96.01; J96.02 KIANNA on CPAP G47.33; Z99.89 Multifocal pneumonia J18.9 Acute hypoxemic respiratory failure J96.01
--- NOTE | 2022-12-16 09:55 | Cardiology Progress Note ---
Date of Service December 16, 2022 Assessment & Plan (1) Acute systolic heart failure: Plan: -extubated and now on telemetry floor. -intravenous Lasix changed to Aldactazide. -would consider change back to intravenous Lasix. (2) Coronary artery disease: Plan: -severe disease on catheterization, but no intervention necessary. -LAD stent was widely patent. (3) Left ventricular dysfunction: Plan: -LVEF 25-30% with apical akinesis. -agree with initiation of Entresto. -would change atenolol to metoprolol succinate 25 mg daily. -diuretics as described above. -will refer to the CHF team. Admission and Anticipated Discharge Date Admission Date: December 13, 2022 Subjective The patient is resting comfortably in bed without complaints of chest pain. His dyspnea has improved, however, is still present. Physical Exam Physical Exam: In general this is an obese male lying in bed without complaints.. HEENT exam is normal. Neck is supple with full carotid upstrokes. Jugular venous pressure cannot be assessed. Cardiovascular exam reveals a regular rhythm distant heart sounds. No obvious murmurs. Lungs note coarse breath sounds throughout. Abdomen is obese without bruits. Extremities reveal 1+ pretibial edema Results & Data Vital Signs (Past 12 Hours) Vital Signs Temp Pulse Pulse Pulse Resp BP BP 12/16/22 08:02 37.2 C 72 16 139/73 12/16/22 07:45 74 12/16/22 07:13 71 28 H 12/16/22 04:23 64 25 H 12/16/22 04:22 65 28 H 12/16/22 03:14 36.0 C L 72 22 126/78 12/16/22 02:22 71 26 H 12/16/22 02:21 71 26 H 12/15/22 23:21 58 L 28 H 12/15/22 23:19 58 L 28 H 12/15/22 23:17 71 12/15/22 22:29 12/15/22 22:29 36.9 C 77 20 129/73 Pulse Ox O2 Del Method O2 Flow Rate FiO2 12/16/22 08:02 90 Nasal Cannula 3 12/16/22 07:45 12/16/22 07:13 90 Nasal Cannula 3 12/16/22 04:23 94 30 12/16/22 04:22 94 BiPAP 30 06/14/23 03:14 96 CPAP 12/16/22 02:22 96 30 12/16/22 02:21 96 BiPAP 30 12/15/22 23:21 96 30 12/15/22 23:19 96 BiPAP 30 12/15/22 23:17 12/15/22 22:29 Nasal Cannula, BiPAP 2 12/15/22 22:29 93 Nasal Cannula 2 Diagnostic Findings laboratory monitor notes sinus rhythm with occasional PACs and PVCs. PG Care Time/CCT Total # of Minutes Spent Total Time Spent with Patient: Total time spent is greater than 50% in coordination of care (as documented) at patient's floor/unit and/or counseling patient: Coding Level of Care Code 82081 SUB INP/OBS CARE 3/50MIN Diagnoses Acute systolic heart failure I50.21 Coronary artery disease I25.10 Left ventricular dysfunction I51.9
[2022-12-16] MEDS: BUMETANIDE 1 MG TAB PO SCH (10:38)
--- NOTE | 2022-12-16 13:07 | Pharmacy Report ---
Pharmacy Glycemic Short Note 2 - Date of Service December 16, 2022 - Glycemic Short BSG Results (Last 24 hours): 12/15/22 12/15/22 12/16/22 16:00 19:53 05:43 Glucose 152 H POC Glucose 137 H 185 H 12/16/22 12/16/22 07:45 11:37 Glucose POC Glucose 183 H 253 H OUTPATIENT ANTIDIABETIC REGIMEN: * Toujeo 54 units SC HS * Novolog 19 units SC TIDM * metformin 1gm PO BID * glipizide 5mg PO BID HbA1C: 7.3% (11/03/22) ASSESSMENT: 12/16: * Fasting blood sugar at goal, but trending up at lunchtime today, patient had 51 units of insulin yesterday (30 units basal) * Diet advancing from full liquid to type 2 DM, tighten CF/CR and increase basal, move all to HS dosing as patient takes at home and for easy transition to home regimen upon discharge * Patient remains on IV Cefepime and azithromycin PO 12/15: * BSGs [id number]/dL the last 24h. Insulin drip discontinued ~1730 yesterday. Received 15 units of SQ basal and 3 units of bolus insulin during transition. * Diet advanced to full liquids. IV antibiotics adjusted to PO azithromycin monotherapy. Pressors have been weaned. * Fasting BSG elevated to 213mg/dL this AM - will give 15 units of lantus BID today and titrate based upon BSGs/advancement of diet. Novolog carb ratio tightened today at lunch. 12/14: * Patient is a 77 year old male admitted with acute hypoxemic respiratory failure requiring transfer to ICU and intubation. History of DM2 on insulin and oral medications at baseline. S/p 125mg X 1 IV methylprednisolone yesterday. BSGs cassy into 400s last evening and was initiated on an insulin infusion for hyperglycemia ~2200 last night. * Patient required pressor support overnight and receiving IV antibiotics. Extubated this AM. Continues on dobutamine infusion at this time. BSGs within goal range this AM. Insulin drip rate ~ 3unit/hr the past couple of hours. Remains NPO pending swallow eval. * Plan to transition to SQ this afternoon. Will give 15 units Lantus X 1. Overlap with drip X 1-2 hours and then can discontinue the drip if BSGs less than 200mg/dL and/or rate less than 3 unit/hr. Will add HS Lantus scale in addition. Novolog ACHS 20/8 once drip d/c'd. Will add overnight checks. PLAN FOR INPATIENT GLYCEMIC CONTROL: * Hold outpatient diabetes medications * Basal insulin * Lantus 15 units SQ this AM, then move to HS dosing: * 20 units for BSG < 110mg/dl, 40 units for BSG 110-180mg/dl, 50 units for BSG > 180mg/dl * Bolus insulin * NovoLog per scale ACHS or Q6hrs while NPO * Goal Range: Low 110 mg/dL - High 140 mg/dL * Correction Factor: 12 mg/dL/unit * Nutritional / Prandial insulin per carb ratio of 1 unit per 4 grams CHO consumed
--- NOTE | 2022-12-16 13:22 | Hospitalist Progress Note ---
Date of Service December 16, 2022 Assessment & Plan (1) Acute respiratory failure with hypoxia and hypercapnia: Plan: Secondary to acute systolic congestive heart failure and pneumonia Initially intubated, patient has been extubated Currently saturating well on 3 L of oxygen through nasal cannula Continue supplemental oxygen and antibiotics Duonebs prn Appreciate pulm recs (2) Acute systolic heart failure: Plan: No previous history EF 25-30% Initially thought to be ischemic cardiomyopathy, cardiac cath showed severe CAD Dobutamine drip has been discontinued cont diuresis with bumex Monitor i/o, daily weight Will need outpatient follow up with heart failure clinic Appreciate cardiology recs (3) NSTEMI (non-ST elevated myocardial infarction): Plan: peak trop 45,000 s/p emergent heart cath by Dr Cruz severe CAD, but nothing requiring stenting appreciate cardiology assistance Rx the CHF (4) Multifocal pneumonia: Plan: CT chest with probable b/l pneumonia Cont cefepime + zithromax Cultures negative so far Continue antibiotics (5) Coronary artery disease: Plan: severe CAD based on current heart cath cont statin cont plavix resume beta nury down the line when off inotropes (6) KIANNA on CPAP: Plan: change CPAP to BIPAP given his hypercarbia (7) Benign essential hypertension: Plan: holding home BP meds (8) Hyperlipidemia: Plan: statin (9) BPH (benign prostatic hyperplasia): Plan: murcia in place holding flomax & finasteride for now (10) Diabetes mellitus type 2, insulin dependent: Plan: insulin drip per protocol (11) History of colorectal cancer: Plan: noted (12) Acute kidney injury: Plan: baseline Cr 1.1 to 1.3 peak Cr thus far 2.2 2nd to cardiorenal syndrome Rx his CHF creatinine should improve over time (13) Abnormal EKG: Plan: most recent EKG with ?a.fib telemetry defer management to cardiology Plan DVT proph - heparin 7500 units TID may need SNF, consult PT Admission and Anticipated Discharge Date Admission Date: December 13, 2022 Subjective patient seen and examined, says his SOB is much improved, still wheezing somewhat Review of Systems Review of Systems: All systems reviewed are negative, apart from the ones contained in the history. Physical Exam Physical Exam: The patient is awake, alert and oriented 3, well developed and well nourished, normocephalic and atraumatic, lying in bed and in no acute distress. HEENT--PERRL, EOMI, mucous membranes and oropharynx mildly dry Neck--supple. No JVD. No bruits. Thyroid normal, trachea midline, no adenopathy. Heart--normal S1 and S2. No murmurs, rubs or gallops. Lungs--Reduced air entry, some wheeze Abdomen--normal bowel sounds and soft. Mild epigastric and left sided abdominal pain Extremities--no cyanosis or clubbing. No edema. Dermatologic--normal skin turgor, normal color, no abnormal lymph nodes, no rash. Neurologic--cranial nerves II through XII grossly intact. Rheumatologic--normal range of motion. Psychiatric--normal affect. Results & Data Results & Data Vital Signs (Past 12 Hours) Vital Signs Temp Pulse Pulse Resp BP BP Pulse Ox 12/16/22 12:53 12/16/22 12:04 98.2 F 61 16 126/70 94 12/16/22 08:00 95 12/16/22 08:02 99.0 F 72 16 139/73 90 12/16/22 07:45 74 12/16/22 07:13 71 28 H 90 12/16/22 04:23 64 25 H 94 12/16/22 04:22 65 28 H 94 12/16/22 03:14 96.8 F L 72 22 126/78 96 12/16/22 02:22 71 26 H 96 12/16/22 02:21 71 26 H 96 Pulse Ox O2 Del Method O2 Flow Rate O2 Flow Rate FiO2 12/16/22 12:53 94 2 12/16/22 12:04 Nasal Cannula 4 12/16/22 08:00 Nasal Cannula 4 12/16/22 08:02 Nasal Cannula 3 12/16/22 07:45 12/16/22 07:13 Nasal Cannula 3 12/16/22 04:23 30 12/16/22 04:22 BiPAP 30 12/16/22 03:14 CPAP 12/16/22 02:22 30 12/16/22 02:21 BiPAP 30 PG Care Time/CCT Total # of Minutes Spent Total Time Spent with Patient: Total time spent is greater than 50% in coordination of care (as documented) at patient's floor/unit and/or counseling patient: Coding Level of Care Code 83945 SUB INP/OBS CARE 2/35MIN Diagnoses Acute respiratory failure with hypoxia and hypercapnia J96.01; J96.02 Acute systolic heart failure I50.21 NSTEMI (non-ST elevated myocardial infarction) I21.4 Multifocal pneumonia J18.9 Coronary artery disease I25.10 KIANNA on CPAP G47.33; Z99.89 Benign essential hypertension I10 Hyperlipidemia E78.5 BPH (benign prostatic hyperplasia) N40.0 Diabetes mellitus type 2, insulin dependent E11.9; Z79.4 History of colorectal cancer Z85.048 Acute kidney injury N17.9 Abnormal EKG R94.31 Time Spent (min) 35
[2022-12-16] MEDS ORDERED: HEPARIN SOD 5,000 UNIT/0.5 ML VIAL SC SCH (21:00)
[2022-12-16] MEDS: ATORVASTATIN 40 MG TAB PO SCH (21:32)
[2022-12-17 07:17] LABS: Basophils # (auto) 0.04 K/uL (0-0.2); Basophils % (auto) 0.3 %; Eosinophils # (auto) 0.32 K/uL (0-0.50); Eosinophils % (auto) 2.4 %; Hematocrit (blood only) 31.9 % (42.0-52.0); Hemoglobin 10.5 g/dl (14.0-18.0); Immature Granulocytes # (auto) 0.11 K/uL (0.01-0.20); Immature Granulocytes % (auto) 0.8 %; Lymphocytes % (auto) 13.7 %; Mean Corpuscular Hemoglobin 29.1 pg (25.0-34.0); Mean Corpuscular Hgb Conc 32.9 g/dL (32.0-36.0); Mean Corpuscular Volume 88.4 fL (80.0-100.0); Mean Platelet Volume 10.2 fL (9.4-12.4); Monocytes # (auto) 1.05 K/uL (0.11-0.59); Neutrophils # (auto) 9.78 K/uL (1.40-6.50); Neutrophils % (auto) 74.8 %; Platelet Count 348 K/uL (130-400); RDW Coefficient of Variation 14.1 % (11.5-14.5); RDW Standard Deviation 45.5 fL (36.4-46.3); Red Blood Count 3.61 M/uL (4.70-6.10)
[2022-12-17 07:33] LABS: BUN Creatinine Ratio 44.7 (10-20); Calcium 8.8 mg/dl (8.6-10.3); Creatinine Clr Calc Pharmacy 41.7 ml/min; Est GFR (African American) 46.4 ml/min; Est GFR (Non-African American) 40.1 ml/min; Magnesium 2.4 mg/dl (1.7-2.4); Phosphorus 4.6 mg/dl (2.5-4.9); Potassium 3.6 mmol/L (3.5-5.1)
[2022-12-17] MEDS: INSULIN ASPART PER UNIT CHARGE SC SCH ×4 (08:04→20:45)
[2022-12-17] MEDS: CEFEPIME 2,000 MG in SYRINGE 0 ML IV SCH (08:04)
[2022-12-17] MEDS: VALSARTAN/SACUBITRIL 26/24MG TAB PO SCH ×2 (08:05→20:46)
[2022-12-17] MEDS: SPIRONOLACTONE/HCTZ 25-25 PO SCH (08:05)
[2022-12-17] MEDS: CLOPIDOGREL BISULFATE 75 MG TAB PO SCH (08:05)
[2022-12-17] MEDS: HEPARIN SOD 5,000 UNIT/0.5 ML VIAL SC SCH ×2 (08:05→20:45)
[2022-12-17] MEDS: BUMETANIDE 1 MG TAB PO SCH (08:06)
[2022-12-17] MEDS: METOPROLOL SUCC 25MG EXT REL TAB PO SCH (08:07)
[2022-12-17] MEDS: AZITHROMYCIN 250 MG TAB PO SCH (08:07)
--- NOTE | 2022-12-17 08:28 | Pulmonology Progress Note ---
Date of Service December 17, 2022 Assessment & Plan (1) Acute respiratory failure with hypoxia and hypercapnia: (2) KIANNA on CPAP: (3) Multifocal pneumonia: (4) Acute hypoxemic respiratory failure: Plan Impression: 77-year-old male with a ventricular failure and mild valvular heart disease with diffuse pulmonary infiltrates and hypoxemic respiratory failure with continued increased work of breathing. He is currently on antibiotics. His white count is elevated. His procalcitonin remains negative and BNP is elevated. I favor that his pulmonary infiltrates being cardiogenic pulmonary edema. Recommendations: 1. Hypoxemic respiratory failure with pulmonary infiltrates: Suspect pulmonary edema given his improvement with diuretics. Continue diuresis. His serum creatinine is improving. Patient is currently day #5 cefepime and day #5 azithromycin. Can discontinue cefepime and azithromycin. His white count is down. His fever curve is resolved and procalcitonin is negative x2. 2. Sleep disordered breathing: Continue CPAP at night. 3. Continue incentive spirometry and increase activity as tolerated. Wean oxygen to keep saturations at or above 90%. W we will continue to follow with you. Admission and Anticipated Discharge Date Admission Date: December 13, 2022 Subjective Patient seen and examined. EMR reviewed. The patient looks much more comfortable today. He sitting up at the bedside. His respiratory distress and increased work of breathing have resolved. He is coughing less. He denies any chest pain. His metoprolol is being held this morning due to low heart rate. He continues to receive diuretics. He is tolerating his CPAP at night. He feels comfortable on the machine he is using here in the hospital Review of Systems Review of Systems: All systems reviewed & are unremarkable except as noted in Subjective Physical Exam Constitutional: WD/WN, vitals as above Neck: trachea midline, no thyromegaly Respiratory: no respiratory distress, no labored breathing and not tachypneic Auscultation: + crackles and + rhonchi; no wheezes Cardiovascular: RRR, no murmur, no edema Gastrointestinal (Abdomen): normal bowel sounds, soft, nontender, no hepatosplenomegaly Musculoskeletal: Extremities: extremities normal to inspection Skin: no rashes, warm and dry Lymphatic: no cervical lymphadenopathy Results & Data Results & Data Vital Signs (Past 12 Hours) Vital Signs Temp Pulse Pulse Resp BP Pulse Ox O2 Del Method 12/17/22 03:01 36.7 C 51 L 22 121/61 96 CPAP 12/17/22 02:52 56 L 12/17/22 02:21 73 20 96 12/17/22 01:17 Nasal Cannula, BiPAP 12/16/22 23:46 36.8 C 57 L 20 100/54 L 96 CPAP 12/16/22 23:27 72 24 96 O2 Flow Rate FiO2 12/17/22 03:01 12/17/22 02:52 12/17/22 02:21 30 12/17/22 01:17 3 12/16/22 23:46 12/16/22 23:27 30 Laboratory Results 12/17/22 06:13 12/17/22 06:13 BNP elevated at 1414 Procalcitonin 0.19 PG Care Time/CCT Total # of Minutes Spent Total Time Spent with Patient: Total time spent is greater than 50% in coordination of care (as documented) at patient's floor/unit and/or counseling patient: Coding Level of Care Code 97606 SUB INP/OBS CARE 2/35MIN Diagnoses Acute respiratory failure with hypoxia and hypercapnia J96.01; J96.02 KIANNA on CPAP G47.33; Z99.89 Multifocal pneumonia J18.9 Acute hypoxemic respiratory failure J96.01
[2022-12-17] MEDS: ASPIRIN 81 MG CHEW PO SCH (09:26)
--- NOTE | 2022-12-17 11:23 | Hospitalist Progress Note ---
Date of Service December 17, 2022 Assessment & Plan (1) Acute respiratory failure with hypoxia and hypercapnia: Plan: Secondary to acute systolic congestive heart failure Initially intubated, patient has been extubated Currently saturating well on 3 L of oxygen through nasal cannula Continue supplemental oxygen Duonebs prn Appreciate pulm recs (2) Acute systolic heart failure: Plan: No previous history EF 25-30% Initially thought to be ischemic cardiomyopathy, cardiac cath showed severe CAD Dobutamine drip has been discontinued cont diuresis with bumex Monitor i/o, daily weight Will need outpatient follow up with heart failure clinic Appreciate cardiology recs (3) NSTEMI (non-ST elevated myocardial infarction): Plan: peak trop 45,000 s/p emergent heart cath by Dr Cruz severe CAD, but nothing requiring stenting appreciate cardiology assistance Rx the CHF (4) Multifocal pneumonia: Plan: CT chest with probable b/l pneumonia Initially on cefepime + zithromax Cultures negative so far PNA has been ruled out, procal is normal discontinue abx (5) Coronary artery disease: Plan: severe CAD based on current heart cath cont statin cont plavix resume beta nury down the line when off inotropes (6) KIANNA on CPAP: Plan: change CPAP to BIPAP given his hypercarbia (7) Benign essential hypertension: Plan: holding home BP meds (8) Hyperlipidemia: Plan: statin (9) BPH (benign prostatic hyperplasia): Plan: murcia in place holding flomax & finasteride for now (10) Diabetes mellitus type 2, insulin dependent: Plan: blood glucose under good control continue insulin sliding scale (11) History of colorectal cancer: Plan: noted (12) Acute kidney injury: Plan: baseline Cr 1.1 to 1.3 2nd to cardiorenal syndrome Rx his CHF some improvement in renal function (13) Abnormal EKG: Plan: most recent EKG with ?a.fib telemetry defer management to cardiology Plan DVT proph - heparin 7500 units TID Home with home health in the next 24 -48 hrs Admission and Anticipated Discharge Date Admission Date: December 13, 2022 Subjective patient seen and examined, feels better today, minimal wheeze Review of Systems Review of Systems: All systems reviewed are negative, apart from the ones contained in the history. Physical Exam Physical Exam: The patient is awake, alert and oriented 3, well developed and well nourished, normocephalic and atraumatic, lying in bed and in no acute distress. HEENT--PERRL, EOMI, mucous membranes and oropharynx mildly dry Neck--supple. No JVD. No bruits. Thyroid normal, trachea midline, no adenopathy. Heart--normal S1 and S2. No murmurs, rubs or gallops. Lungs--Reduced air entry, some wheeze Abdomen--normal bowel sounds and soft. Mild epigastric and left sided abdominal pain Extremities--no cyanosis or clubbing. No edema. Dermatologic--normal skin turgor, normal color, no abnormal lymph nodes, no rash. Neurologic--cranial nerves II through XII grossly intact. Rheumatologic--normal range of motion. Psychiatric--normal affect. Results & Data Results & Data Vital Signs (Past 12 Hours) Vital Signs Temp Pulse Pulse Resp BP Pulse Ox O2 Del Method 12/17/22 08:00 56 L 12/17/22 08:24 98.1 F 55 L 18 124/65 96 Room Air 12/17/22 03:01 98.1 F 51 L 22 121/61 96 CPAP 12/17/22 02:52 56 L 12/17/22 02:21 73 20 96 12/17/22 01:17 Nasal Cannula, BiPAP 12/16/22 23:46 98.2 F 57 L 20 100/54 L 96 CPAP 12/16/22 23:27 72 24 96 O2 Flow Rate FiO2 12/17/22 08:00 12/17/22 08:24 12/17/22 03:01 12/17/22 02:52 12/17/22 02:21 30 12/17/22 01:17 3 12/16/22 23:46 12/16/22 23:27 30 PG Care Time/CCT Total # of Minutes Spent Total Time Spent with Patient: Total time spent is greater than 50% in coordination of care (as documented) at patient's floor/unit and/or counseling patient: Coding Level of Care Code 91851 SUB INP/OBS CARE 2/35MIN Diagnoses Acute respiratory failure with hypoxia and hypercapnia J96.01; J96.02 Acute systolic heart failure I50.21 NSTEMI (non-ST elevated myocardial infarction) I21.4 Multifocal pneumonia J18.9 Coronary artery disease I25.10 KIANNA on CPAP G47.33; Z99.89 Benign essential hypertension I10 Hyperlipidemia E78.5 BPH (benign prostatic hyperplasia) N40.0 Diabetes mellitus type 2, insulin dependent E11.9; Z79.4 History of colorectal cancer Z85.048 Acute kidney injury N17.9 Abnormal EKG R94.31 Time Spent (min) 35
[2022-12-17] MEDS: ATORVASTATIN 40 MG TAB PO SCH (20:45)
[2022-12-17] MEDS: LANTUS PER UNIT CHARGE SC SCH (20:45)
--- NOTE | 2022-12-18 07:50 | Pulmonology Progress Note ---
Date of Service December 18, 2022 Assessment & Plan (1) Acute respiratory failure with hypoxia and hypercapnia: (2) KIANNA on CPAP: (3) Multifocal pneumonia: (4) Acute hypoxemic respiratory failure: Plan Impression: 77-year-old male with a ventricular failure and mild valvular heart disease with diffuse pulmonary infiltrates and hypoxemic respiratory failure with continued increased work of breathing. He is significantly improved with diuretics. Antibiotics have been discontinued. He is now on room air and appears to be at his baseline status. Recommendations: 1. Hypoxemic respiratory failure with pulmonary infiltrates: Suspect pulmonary edema given his improvement with diuretics. Continue diuresis. Follow creatinine and electrolytes. Recommend discontinuation of Kelley catheter. Ambulation of patient. Consideration for PT and OT evaluations as the patient is likely approaching discharge. Given his significant clinical improvement will obtain repeat baseline chest x-ray today. 2. Sleep disordered breathing: Continue CPAP at night. 3. Continue incentive spirometry and increase activity as tolerated. Off oxygen Patient appears to be back to his pulmonary baseline and is likely approaching discharge. Pulmonary will sign off. He will require outpatient cardiology follow-up. Admission and Anticipated Discharge Date Admission Date: December 13, 2022 Subjective Patient seen and examined. He is doing well. He is off oxygen. He is sitting up in a chair. He feels that his breathing is better. He is not coughing up phlegm. He used CPAP last night. No chest pain or palpitations. Overall significantly clinically improved Review of Systems Review of Systems: All systems reviewed & are unremarkable except as noted in Subjective Physical Exam Constitutional: WD/WN, vitals as above Neck: trachea midline, no thyromegaly Respiratory: no respiratory distress, no labored breathing and not tachypneic Auscultation: no crackles, no rhonchi and no wheezes Faint end expiratory squeak bilaterally Cardiovascular: RRR, no murmur, no edema Gastrointestinal (Abdomen): normal bowel sounds, soft, nontender, no hepatosplenomegaly Musculoskeletal: Extremities: extremities normal to inspection Skin: no rashes, warm and dry Lymphatic: no cervical lymphadenopathy Results & Data Results & Data Vital Signs (Past 12 Hours) Vital Signs Temp Pulse Pulse Resp BP Pulse Ox O2 Del Method 12/18/22 07:37 55 L 12/18/22 07:13 36.8 C 68 18 122/69 92 Room Air 12/18/22 04:00 37.0 C 63 18 114/58 L 95 CPAP 12/18/22 03:03 56 L 18 91 12/17/22 23:10 36.9 C 59 L 18 136/71 98 Nasal Cannula 12/17/22 22:00 65 12/17/22 23:08 66 98 12/17/22 22:43 Nasal Cannula O2 Flow Rate FiO2 12/18/22 07:37 12/18/22 07:13 12/18/22 04:00 12/18/22 03:03 25 12/17/22 23:10 2 12/17/22 22:00 12/17/22 23:08 30 12/17/22 22:43 2 Laboratory Results 12/17/22 06:13 12/17/22 06:13 Labs from today are pending. PG Care Time/CCT Total # of Minutes Spent Total Time Spent with Patient: Total time spent is greater than 50% in coordination of care (as documented) at patient's floor/unit and/or counseling patient: Coding Level of Care Code 93961 SUB INP/OBS CARE 2/35MIN Diagnoses Acute respiratory failure with hypoxia and hypercapnia J96.01; J96.02 KIANNA on CPAP G47.33; Z99.89 Multifocal pneumonia J18.9 Acute hypoxemic respiratory failure J96.01
--- NOTE | 2022-12-18 08:11 | XRay Report ---
XR chest 1V portable HISTORY: 77 years-old Male pulm edema acute shortness of breath COMPARISON: 12/16/2022. TECHNIQUE: AP view of the chest FINDINGS: Cardiac silhouette is enlarged. Pulmonary vascular congestion with interstitial coarsening and ill-de fined airspace opacities redemonstrated. Mild improved aeration of the lungs compared to the prior st udy. No pneumothorax or large pleural effusion. Degenerative changes of the shoulders and spine. IMPRESSION: Cardiomegaly with mildly improved pulmonary edema. ACT 112: Negative or not required by law. The above report was generated using voice recognition software. It may contain grammatical, syntax o r spelling errors. Electronically signed by: Sid Madsen M.D. 12/18/2022 8:10 AM
[2022-12-18 08:15] LABS: Hematocrit (blood only) 34.5 % (42.0-52.0); Hemoglobin 11.4 g/dl (14.0-18.0); Mean Corpuscular Hemoglobin 28.9 pg (25.0-34.0); Mean Corpuscular Volume 87.3 fL (80.0-100.0); Mean Platelet Volume 9.8 fL (9.4-12.4); Platelet Count 379 K/uL (130-400); RDW Coefficient of Variation 14.2 % (11.5-14.5); RDW Standard Deviation 45.1 fL (36.4-46.3); Red Blood Count 3.95 M/uL (4.70-6.10); White Blood Count 11.35 K/ul (4.8-10.8)
[2022-12-18 08:27] LABS: BUN Creatinine Ratio 42.4 (10-20); Creatinine Clr Calc Pharmacy 44.2 ml/min; Est GFR (African American) 50.2 ml/min; Est GFR (Non-African American) 43.3 ml/min; Phosphorus 3.7 mg/dl (2.5-4.9); Potassium 3.5 mmol/L (3.5-5.1)
[2022-12-18] MEDS: METOPROLOL SUCC 25MG EXT REL TAB PO SCH (08:38)
[2022-12-18] MEDS: BUMETANIDE 1 MG TAB PO SCH (08:38)
[2022-12-18] MEDS: VALSARTAN/SACUBITRIL 26/24MG TAB PO SCH (08:38)
[2022-12-18] MEDS: CLOPIDOGREL BISULFATE 75 MG TAB PO SCH (08:38)
[2022-12-18] MEDS: SPIRONOLACTONE/HCTZ 25-25 PO SCH (08:38)
[2022-12-18] MEDS: HEPARIN SOD 5,000 UNIT/0.5 ML VIAL SC SCH (08:39)
[2022-12-18] MEDS: INSULIN ASPART PER UNIT CHARGE SC SCH ×2 (08:44→12:11)
[2022-12-18] MEDS: ASPIRIN 81 MG CHEW PO SCH (08:44)
--- NOTE | 2022-12-18 14:21 | Discharge Summary ---
Date of Service December 18, 2022 Admission HPI Per Admitting Provider Chaka Peña is a 77 year old male with a past medical of CAD(hx RCA TEJ x2 and LAD TEJ x 1 in 2017) on ASA and Plavix, HTN, HLD, Type II DM, BPH, KIANNA on CPAP, spinal cord stimulator and h/o rectal cancer (s/p ileostomy and reversal 2004) who presented to the ER today with complaints of cough and SOB. Patient was recently evaluated at his PCP office and rx TCN 100BID for 14 days, prednisone taper and erythromycin ointment for a URI and conjunctivitis. Patient tells me he has had fatigue and decreased appetite x a few weeks and for the past week has had increasing SOB, and productive cough. He denies any unintentional weight loss, chest pain or dyspnea. His sone was ill recently with sinusitis. He states the erythromycin ointment resolved his conjunctivitis and the doxy he only took one days worth. He states the prednisone made him not be able to sleep and increased his BS over 500 and he felt worse. Patient denies any choking while eating but does admit to occasional dysphagia, but no bolus arrest. He denies any history of CHF and follows with Dr Vazquez for cardiology. Patient was evaluated in the ER and found to have an elevated lactate of 4.2, leukocytosis 15 (previously was on steroids), tachypneic, and hypoxic and saturating on RA upon admission at 86% and currently o 4L and saturating at 97%. Currently patient is on Bipap and asking to be taken off. He had a VBG earlier and will repeat this now. His CXR revealed multifocal airspace opacities comparable with pneumonia with or without superimposed aspiration. After evaluating patient his troponin returned and was elevated over 45,000 and his BNP was 1200. Reassessed patient and he denies any chest pain, dyspnea or diaphoresis. He does still have cough and SOB. Repeat Lactate is still 4.2. Added STAT Echo and changed admission to PCU Dr Parra spoke with Dr Martin Principal Diagnosis acute on chronic systolic hf Discharge Exam The patient is awake, alert and oriented 3, well developed and well nourished, normocephalic and atraumatic, lying in bed and in no acute distress. HEENT--PERRL, EOMI, mucous membranes and oropharynx mildly dry Neck--supple. No JVD. No bruits. Thyroid normal, trachea midline, no adenopathy. Heart--normal S1 and S2. No murmurs, rubs or gallops. Lungs--Reduced air entry, some wheeze Abdomen--normal bowel sounds and soft. Mild epigastric and left sided abdominal pain Extremities--no cyanosis or clubbing. No edema. Dermatologic--normal skin turgor, normal color, no abnormal lymph nodes, no rash. Neurologic--cranial nerves II through XII grossly intact. Rheumatologic--normal range of motion. Psychiatric--normal affect. Discharge Data Allergies Allergy/AdvReac Type Severity Reaction Status Date / Time amoxicillin [From Augmentin] AdvReac Unknown GI upset Verified 12/11/22 15:39 clavulanic acid AdvReac Unknown GI upset Verified 12/11/22 15:39 [From Augmentin] Consultations 12/13/22 12:21 ED Decision to Admit Stat 12/13/22 19:17 Consult Exhibit Carpenter Routine 12/16/22 08:27 Consult Pulmonology Routine Procedures Performed Operation Date: 12/13/22 17:30 Actual Procedures p Cath, Right and Left Heart - Moi Cruz MD s Cineradiography w/Routine Exam - Moi Crzu MD s Ultrasound Vascular Access - Moi Cruz MD Ordered Studies 12/13/22 15:37 CT Abd and Pelvis [CT abd pelvis wo con] Stat 12/13/22 15:44 CT chest diagnostic wo con Stat 12/13/22 17:09 CL Cath Imgs for PACS use only Stat Hospital Course (1) Acute respiratory failure with hypoxia and hypercapnia: Secondary to acute systolic congestive heart failure Now resolved Initially intubated, patient has been extubated Currently saturating well on room air (2) Acute systolic heart failure: No previous history EF 25-30% Initially thought to be ischemic cardiomyopathy, cardiac cath showed severe CAD Dobutamine drip has been discontinued cont diuresis with bumex Monitor i/o, daily weight Will need outpatient follow up with heart failure clinic Appreciate cardiology recs (3) NSTEMI (non-ST elevated myocardial infarction): peak trop 45,000 s/p emergent heart cath by Dr Cruz severe CAD, but nothing requiring stenting appreciate cardiology assistance Rx the CHF (4) Multifocal pneumonia: CT chest with probable b/l pneumonia Initially on cefepime + zithromax Cultures negative so far PNA has been ruled out, procal is normal discontinue abx (5) Coronary artery disease: severe CAD based on current heart cath cont statin cont plavix resume beta nury down the line when off inotropes (6) KIANNA on CPAP: change CPAP to BIPAP given his hypercarbia (7) Benign essential hypertension: holding home BP meds (8) Hyperlipidemia: statin (9) BPH (benign prostatic hyperplasia): murcia in place holding flomax & finasteride for now (10) Diabetes mellitus type 2, insulin dependent: blood glucose under good control continue insulin sliding scale (11) History of colorectal cancer: noted (12) Acute kidney injury: baseline Cr 1.1 to 1.3 2nd to cardiorenal syndrome Rx his CHF some improvement in renal function (13) Abnormal EKG: most recent EKG with ?a.fib telemetry defer management to cardiology Plan DVT proph - heparin 7500 units TID Home with home health in the next 24 -48 hrs Total Time Total Time Spent Total Time Spent (In Minutes): 35 Discharge Plan Discharge Items Patient Disposition: Home - Home Health Services Reason For Visit: SOB,HYPOXIA,PNEUMONIA Discharge Diagnosis: acute chf exacerbation Activity: Resume your previous activity Non-emergency contact: Primary Care Provider, Senior Salesforce Developer and Wholesale And Retail Merchant Call non-emergency contact if: you have any medication questions Follow-up/Referrals: Bear Brooks, [Primary Care Provider] - 12/25/22 9:20 am Diet: Heart Healthy Addtl Attending Provider Instructions: Please make appointment to follow up with your dye house hand Pending Studies at Discharge: No Stand-Alone Forms: [facility] Behavio, Smoking Cessation Medications and DC Order Prescriptions: New aspirin [Children's Aspirin] 81 mg Tablet,Chewable 81 mg PO DAILY 30 Days Qty: 30 0RF bumetanide 1 mg Tablet 1 mg PO QAM 30 Days Qty: 30 0RF metoprolol succinate 25 mg Tablet Extended Release 24 Hr 25 mg PO QAM 30 Days Qty: 30 0RF finasteride [Proscar] 5 mg Tablet 5 mg PO DAILY 30 Days Qty: 30 0RF Entresto 24-26 mg Tablet 1 tab PO BID 30 Days Qty: 60 0RF spironolacton-hydrochlorothiaz 25-25 mg Tablet 1 tab PO DAILY 30 Days Qty: 30 0RF Continued albuterol sulfate 90 mcg/actuation HFA aerosol inhaler 1 - 2 inh INH QID Qty: 18 2RF glipizide 5 mg tablet 5 mg PO BID Qty: 180 3RF (DME) pen needle, diabetic 32 gauge x 5/32" needle See Rx Instructions .ROUTE .MEDSUPPLY Qty: 100 1RF Rx Instructions: As directed clopidogrel [Plavix] 75 mg tablet 75 mg PO DAILY Qty: 90 3RF metformin 500 mg tablet 1,000 mg PO BID Qty: 120 5RF atorvastatin 40 mg tablet 40 mg PO PM Qty: 90 1RF amlodipine 10 mg tablet 10 mg PO QAM Qty: 90 1RF insulin aspart U-100 [Novolog FlexPen U-100 Insulin] 100 unit/mL (3 mL) insulin pen 19 unit subcut TID Qty: 15 3RF OneTouch Ultra Test Strip See Rx Instructions .ROUTE .COMPLEX Qty: 200 2RF Dose Instruction: USE 1 STRIP TO CHECK GLUCOSE TWICE DAILY Rx Instructions: USE 1 STRIP TO CHECK GLUCOSE TWICE DAILY Toujeo Max U-300 SoloStar 300 unit/mL (3 mL) insulin pen 54 unit subcut .qhs Qty: 3 11RF tamsulosin [Flomax] 0.4 mg capsule 0.8 mg PO QPM Qty: 180 5RF (DME) Auto Titrating CPAP Misc See Rx Instructions .Route Qty: 1 0RF Rx Instructions: As directed (DME) CPAP Machine Misc .Route Qty: 1 0RF Rx Instructions: CPAP 11 cmH2O, interface fit patient comfort, heated modification, download compliance capabilities, [facility] care in [employer] Discontinued diphenoxylate-atropine 2.5-0.025 mg tablet 1 tab PO Q6H PRN (Reason: diarrhea) Qty: 120 1RF lisinopril 40 mg tablet 40 mg PO DAILY Qty: 90 1RF hydrochlorothiazide 12.5 mg tablet 12.5 mg PO TID Qty: 90 5RF atenolol 25 mg tablet 25 mg PO QAM Qty: 90 1RF aspirin [Aspir-81] 81 mg tablet,delayed release (DR/EC) 81 mg PO QPM doxycycline hyclate 100 mg capsule 100 mg PO BID 7 Days Qty: 14 0RF erythromycin 5 mg/gram (0.5 %) ointment 1 applic ophthalmic (eye) Q6H 7 Days Qty: 3.5 0RF Rx Instructions: apply 1cm ribbon in eye(s) 4 times daily Discharge Orders: Discharge Order (Routine); Ordered 12/18/22 Ordered By: Teodora Yanes/Other Patient Handouts: Bumetanide Oral Tablet Admission Data Admit Date/Time: 12/13/22 13:16 Attending Provider: Teodora Owusu Admit Provider: Moy Parra Primary Care Provider: Bear Brooks Other Providers: Moy Parra ; Alfredo Flowers ; Arben Dias Other Interventions: Discharge Summary Assessment (RN) Last Done: 12/18/22 12:30 Coding Level of Care Code 42549 INP/OBS DISCH >30 MIN Diagnoses Acute respiratory failure with hypoxia and hypercapnia J96.01; J96.02 Acute systolic heart failure I50.21 NSTEMI (non-ST elevated myocardial infarction) I21.4 Multifocal pneumonia J18.9 Coronary artery disease I25.10 KIANNA on CPAP G47.33; Z99.89 Benign essential hypertension I10 Hyperlipidemia E78.5 BPH (benign prostatic hyperplasia) N40.0 Diabetes mellitus type 2, insulin dependent E11.9; Z79.4 History of colorectal cancer Z85.048 Acute kidney injury N17.9 Abnormal EKG R94.31 Time Spent (min) 35
== END 2022-12-18 14:20 | disposition home health service (06) | DRG 208 ==
LOC: ED 09:47 → 2S 13:16 → SUATTDRO 13:16 → 2S 16:44 → 1E 18:42 → 2W 12-15 22:19

== ENCOUNTER 2024-07-06 09:38 | Observation (INO) ==
--- NOTE | 2024-07-06 11:01 | History & Physical Bridge Note ---
Date of Service July 06, 2024 History & Physical Bridge Note I have examined the patient, reviewed the History & Physical and in the interval since the performance of the History & Physical I have noted the following changes of clinical significance: no changes noted. Still in AF
--- NOTE | 2024-07-06 11:02 | Pre Anesthesia Assessment ---
Date of Service July 06, 2024 Pre Sedation Assessment Cardiovascular + regular rate and + regular rhythm Respiratory + respiratory effort normal Pre-Sedation Airway Assessment Smoking Status: Never smoker Hx Sleep Apnea: No Hx Difficult Intubation: No Short, Thick Neck: Yes Thyromental Distance: > or= 3.5 Finger Breadths Oral Cavity: + WNL Mallampati Class: III ASA: ASA3 Procedure Planning Contraindications for Sedation: none Current Medications Reviewed: Yes Notes The planned sedation has been discussed with the patient. Informed Consent was obtained. I have identified the patient, determined the appropriateness of sedation and have assessed the patient immediately prior to the procedure. All medicine(s) and interventions are by my order.
[2024-07-06] MEDS: BUPIVACAINE 0.25% PF 30 ML VIAL ONE (12:29)
[2024-07-06] MEDS: LIDOCAINE 1% LOCAL 20 ML VIAL ONE (12:29)
[2024-07-06] MEDS: ceFAZolin 330 MG/ML 1 GM VIAL ONE (12:30)
[2024-07-06] MEDS: WATER, STERILE FOR INJ 10 ML VIAL ONE (12:30)
[2024-07-06] MEDS: VANCOMYCIN HCL 1000MG/20ML VIAL ONE (12:30)
[2024-07-06] MEDS: fentaNYL citrate PF 100 MCG/2 ML VIAL ONE (12:31)
[2024-07-06] MEDS: MIDAZOLAM HCL 5 MG/ML 1 ML VIAL ONE (12:31)
--- NOTE | 2024-07-06 14:04 | Electrophysiology Report ---
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 Despite guideline directed medical therapy he continues to have an ejection fraction of 30 to 35%. He has not had revascularization in the past 90 days nor suffered a myocardial infarction in the past 40 days. He has [place] [employer] class III symptoms. He has an anticipated longevity greater than 1 year. As result he is felt to be a good candidate for a defibrillator as primary prevention against sudden cardiac . Patient also has a left bundle branch block morphology on his EKG with a QRS duration approaching 150 ms. He is therefore felt to be a good candidate for cardiac resynchronization therapy. Shared decision-making was employed prior to deciding on implant. Procedure in detail: The patient was informed Sujatha benefits and alternatives to the intended procedure. He understood and wished to proceed. He was taken to the electrophysiology suite in a fasting state. A preoperative antibiotic was administered. The patient was monitored electrocardiography throughout today's procedure and conscious sedation was administered per protocol. The left upper pectoral area was prepped and draped in usual sterile fashion. This area was anesthetized using subcutaneous ministration of a lidocaine and Marcaine solution. Incision was made at the site and carried down the prepectoralis fascia using sharp dissection. Electrocautery was also employed for dissection as well as for hemostasis. The device pocket was fashioned and the tissues above the pectoralis muscle. Subsequently the left axillary vein was accessed 3 times using modified Seldinger technique. Sheath were placed over the guidewire [place] passage of the pacing leads. Initially a defibrillation lead was placed in the right ventricular apex under fluoroscopic guidance. Adequate sensing and threshold parameters were obtained prior to active fixation of this lead to the endocardial surface. The proximal portion lead was then sutured to prepectoralis fascia using nonabsorbable suture and sheath was placed over guidewire [place] passage of the right atrial lead to the right atrium under fluoroscopic guidance. Adequate sensing and threshold parameters were obtained prior to active fixation of this lead to the endocardial surface. The proximal portion lead was then sutured to prepectoralis fat using nonabsorbable suture. A sheath was placed over the remaining guidewire and used to stilted passage of a guiding catheter for engagement of the coronary sinus. Once engaged limited coronary sinus venography was performed in order to identify suitable target vessel. Once identified standard guidewire techniques were employed in order to deliver the lead to the target vessel. At this point it was obvious that the pacing and sensing parameters of the lead would be suboptimal. There did not appear to be any additional options for coronary sinus lead placement this lead and catheter were removed and exchanged for a guiding catheter and placement of a left bundle pacing lead. The anterior ventricular septum was subsequently mapped and appropriate location was eventually identified. Advancement of the lead into the interventricular septum eventually led to a satisfactory waveform and pacing characteristics. This point the guiding catheter and sheath were removed. The proximal portion of the lead was then sutured to prepectoralis fascia using nonabsorbable suture. The device pocket is irrigated with an antibiotic solution. The leads were then attached to the device device and leads were then placed in the pocket and the pocket was closed in 3 layers with absorbable suture. Steri-Strips and sterile dressing were applied. The patient Toller procedure well. There were no immediate complications. Equipment used: New pulse generator: [employer] Treating Unit Operator [employer]. Model number [id number] serial number [id number] Right atrial lead: [employer] Treating Unit Operator Med[employer]onic model 5076 serial number [id number] Right ventricular lead: [employer] Treating Unit Operator [employer]. Model number 6935M serial number [id number] Left bundle pacing lead: [employer] Treating Unit Operator [employer]. Model 3830 serial number [id number] Measured data Right atrial lead: Patient was in atrial fibrillation at the time of implant. Atrial sensing was 1.1 mV. Pacing impedance was 475 ohms Right ventricular lead: R waves measured greater than 20 mV. Pacing threshold was 0.5 V at 0.4 ms with a pacing impedance of 551 ohms Left bundle pacing lead: R waves initially measured 5.5 mV. Pacing threshold was 0.75 V at 0.4 ms with a pacing impedance of 735 ohms unipolar Impression: Successful implantation of biventricular ICD with left bundle pacing lead No satisfactory position or pacing characteristics for coronary sinus lead. [facility] Electrophysiology codes Pacing Procedure 1: Pacin BiV electrode w/Pacer / ICD implant, add on code ICD Procedure 1: ICD: 03326 Insert single or dual ICD system PG Moderate Sedation Codes Moderate Sedation Codes Procedure 1: Sedation/Anesthesia: 79530 Mod Sedation by the same physician;Init15 Min Child Age 5 & Up Procedure 2: Sedation/Anesthesia: 37882 Mod Sedation by the same physician; Ea [id number] Minutes
--- NOTE | 2024-07-06 14:04 | Post Anesthesia Assessment ---
Date of Service July 06, 2024 Post Sedation Assessment Vital Signs Pulse Resp BP Pulse Ox O2 Del Method 07/06/24 11:03 63 18 125/54 L 97 Room Air Recovery Score Activity: Moves 4 extremities Respiration: Deep Breath/Cough Circulation: +/-20% PreAnes Value Consciousness: Arouseable (by name) Oxygen Saturation: O2 needed for >90% Discharge Sedation Level of Care: Fast Track Phase II Post Sedation Plan On clinical assessment, the patient appears to have tolerated the sedation without complications. Patient is recovering as anticipated. Patient will continue to be monitored by nursing and may be discharged when sedation discharge criteria are met per below protocol. Upon Completions of procedure up to 15 minutes continue every 5 minute vital signs and the P.A.R. score; then discharge to a Phase I or Fast Track to Phase II per the following guidelines: * Discharge Patient to appropriate Phase II area if PAR is 8 or greater or return to pre- procedure baseline. The post - procedure orders will be as directed. * If PAR score is less than 8 or not return to pre-procedure baseline then patient will follow Phase I monitoring till PAR is reached for Phase II. The Phase I may be done in procedure room or may call to secure a Phase I area. * If naloxone or flumazenil are used for reversal, hold in Phase I for continued monitoring from when last reversal dose was given for a minimum of 60 minutes or longer pending the nurse and/or physician discretion of patient condition before discharge to Phase II. Please call the Sedation Physician to re-evaluate and complete post-note for discharge to Phase II area. Do NOT discharge from procedure sedation or Phase 1 until post- sedation evaluation note is complete by procedure /sedation MD Sedation Discharge Instructions to be given to the patient at discharge to home.
[2024-07-06] MEDS ORDERED: DEXTROSE 50% 50 ML SYRINGE IV PRN (16:30)
[2024-07-06] MEDS ORDERED: GLUCOSE 40% GEL 15 GM TUBE PO PRN (16:30)
[2024-07-06] MEDS ORDERED: GLUCAGON FOR INJ 1 MG VIAL SQ PRN (16:30)
[2024-07-06] MEDS ORDERED: GLUCOSE 10 TAB/TUBE PO PRN (16:30)
[2024-07-06] MEDS ORDERED: CARBOHYDRATES FOR HYPOGLYCEMIA PO PRN (16:30)
[2024-07-06] MEDS: INSULIN ASPART PER UNIT CHARGE SC SCH (17:53)
[2024-07-06] MEDS: oxyCODONE HCL IR 5 MG TAB (IMMEDIATE RELEASE) PO PRN (17:56)
[2024-07-06] MEDS ORDERED: Nursing to Pharmacy Communication SCH (18:00)
[2024-07-06] MEDS: INSULIN ASPART PER UNIT CHARGE SC ONE (18:03)
[2024-07-06] MEDS: ALBUTEROL HFA 8 GM INHALER INH SCH (19:42)
[2024-07-06] MEDS: ACETAMINOPHEN 325 MG TAB PO PRN (20:13)
[2024-07-06] MEDS: PREGABALIN 50 MG CAP PO SCH (20:14)
[2024-07-06] MEDS: SPIRONOLACTONE 25 MG TAB PO SCH (20:16)
[2024-07-06] MEDS: TAMSULOSIN HCL 0.4 MG CAP PO SCH (20:16)
[2024-07-06] MEDS: GABAPENTIN 100 MG CAP PO SCH (20:17)
[2024-07-06] MEDS: ATORVASTATIN 40 MG TAB PO SCH (20:17)
[2024-07-06] MEDS: VALSARTAN/SACUBITRIL 103/97MG TAB PO SCH (20:17)
[2024-07-06] MEDS: LANTUS PER UNIT CHARGE SQ SCH (20:42)
[2024-07-06] MEDS: ceFAZolin 2000MG 2,000 MG/15 ML SYR IV ONE (22:17)
[2024-07-07] MEDS: CHOLESTYRAMINE LIGHT 4 GM PKT PO SCH (06:14)
--- NOTE | 2024-07-07 08:10 | XRay Report ---
EXAM: XR chest 2V PA/lateral CLINICAL HISTORY: EVALUATION FOR PNEUMOTHORAX. TECHNIQUE: X-ray images of the chest were obtained in posteroanterior (PA) and lateral projections. COMPARISON: X-ray dated 12/18/2022. FINDINGS: Pulmonary Parenchyma: Bilateral lower lung zones diffuse ground glass haze with associated prominent bronchovascular markings, hilar vessels, and picture suggestive of pulmonary congestion No definite pneumothorax was detected. No evidence of pleural effusion or pleural thickening. Heart and Mediastinum: Cardiomegaly with dilated unfolded aorta and calcified atherosclerotic plaques. ICD device inserted. Bony Thorax: Thoracic spondylosis is seen as sclerosed end plates and osteophytes. Soft Tissues: Soft tissues overlying the chest wall are unremarkable. IMPRESSION: 1. No definite pneumothorax was detected. 2. Bilateral lower lung zones diffuse ground glass haze with associated prominent bronchovascular markings, hilar vessels, and picture suggestive of pulmonary congestion (stable). 3. Cardiomegaly with dilated unfolded aorta and calcified atherosclerotic plaques (stable). 4. ICD device inserted. Electronically signed by Michell Balderrama 07-07-2024 08:10 AM
[2024-07-07] MEDS: METOPROLOL SUCC 50MG EXT REL TAB PO SCH (08:32)
[2024-07-07] MEDS: FINASTERIDE 5 MG TAB PO SCH (08:32)
[2024-07-07] MEDS: BUMETANIDE 1 MG TAB PO SCH (08:32)
[2024-07-07] MEDS: amLODIPine BESYLATE 5 MG TAB PO SCH (08:32)
[2024-07-07] MEDS: INSULIN ASPART PER UNIT CHARGE SC STA (08:35)
--- NOTE | 2024-07-07 09:03 | Discharge Summary ---
Date of Service July 07, 2024 Admission HPI Per Admitting Provider The patient is an 79-year-old gentleman with a history of an ischemic cardiomyopathy who presented for implantation of a biventricular ICD. Principal Diagnosis Cardiomyopathy Discharge Exam On the day of discharge the wound was free of hematoma. No significant erythema or drainage. Minimal ecchymosis. Discharge Data Allergies Allergy/AdvReac Type Severity Reaction Status Date / Time benzonatate Allergy ankle Verified 06/14/24 13:27 redness and swelling amoxicillin [From Augmentin] AdvReac Unknown GI upset Verified 06/14/24 13:27 clavulanic acid AdvReac Unknown GI upset Verified 06/14/24 13:27 [From Augmentin] Procedures Performed Operation Date: 07/06/24 11:00 Actual Procedures p ICD Insertion Single or Dual - Mir Martin MD Ordered Studies 07/06/24 06:30 EP Lab Images for PACS ONCE Hospital Course (1) Atrial fibrillation: (2) Ischemic cardiomyopathy: Plan 1. Cardiomyopathy: On the day of admission the patient underwent implantation of a biventricular ICD utilizing a left bundle pacing lead. Attempts were made to place a CS lead but the anatomy and lead function were unfavorable. On the day of discharge she was feeling well. There was no evident complication. Chest x-ray demonstrated stable lead position without pneumothorax. Device function was normal on interrogation. Total Time Total Time Spent Total Time Spent (In Minutes): 20 Discharge Plan Discharge Items Patient Disposition: Home - Self-Care Reason For Visit: ICD PLACEMENT Discharge Diagnosis: cardiomyopathy Condition on Discharge: Good Activity: Per Instructions section Activity Comment: No lifting left arm above shoulder or behind neck for 6 weeks Lifting: No more than 10 pounds Lifting Comment: no more than 10# with left arm Bathing: Keep incision dry Bathing Comment: keep wound dry and steri-strip intact until f/u Sexual Activity: When tolerated Exercise/Sports: Rest today Driving/Machine Use: Resume 1 day after discharge 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 Wound check scheduled July 13.) Bear Brooks, [Primary Care Provider] - 07/13/24 2:00 pm (Hospital follow up scheduled July 13 at 2:[address] Brooks) Diet: Carb Consistent or DM2 and Heart Healthy Addtl Attending Provider Instructions: do not take Eliquis until tomorrow morning Pending Studies at Discharge: No Stand-Alone Forms: [facility] GoodChime!, Smoking Cessation Medications and DC Order Prescriptions: New oxycodone 5 mg tablet 5 mg PO Q6H PRN (Reason: pain) Qty: 5 0RF Continued OneTouch Ultra Test Strip See Rx Instructions .ROUTE .COMPLEX Qty: 200 5RF Dose Instruction: USE 1 STRIP TO CHECK GLUCOSE TWICE DAILY Rx Instructions: USE 1 STRIP TO CHECK GLUCOSE TWICE DAILY albuterol sulfate 90 mcg/actuation HFA aerosol inhaler 1 - 2 inh INH BID Qty: 1 5RF amlodipine 5 mg tablet 5 mg PO QAM Qty: 90 3RF bumetanide 1 mg tablet 1 mg PO DAILY Qty: 180 3RF Rx Instructions: May increase to 2 mg daily for weight gain, edema, SOB. tamsulosin [Flomax] 0.4 mg capsule 0.8 mg PO QPM Qty: 180 5RF finasteride 5 mg tablet See Rx Instructions .ROUTE .COMPLEX Qty: 30 11RF Dose Instruction: Take 1 tablet by mouth once daily for 30 days Rx Instructions: Take 1 tablet by mouth once daily for 30 days atorvastatin 40 mg tablet 40 mg PO PM Qty: 90 3RF Entresto 97-103 mg tablet 1 tab PO BID Qty: 180 3RF metoprolol succinate 200 mg tablet extended release 24 hr 200 mg PO DAILY Qty: 90 3RF (DME) pen needle, diabetic 32 gauge x 5/32" needle See Rx Instructions .ROUTE .MEDSUPPLY Qty: 100 1RF Rx Instructions: As directed cholestyramine (with sugar) [Questran] 4 gram powder 4 g PO BID 30 Days Qty: 348.6 2RF Rx Instructions: administer w/meal; avoid other meds within 1hr before or 4-6hr after dose (DME) Auto Titrating CPAP Misc See Rx Instructions .Route Qty: 1 0RF Rx Instructions: As directed (DME) CPAP Machine Misc .Route Qty: 1 0RF Rx Instructions: CPAP 11 cmH2O, interface fit patient comfort, heated modification, download compliance capabilities, [facility] in [place] Eliquis 5 mg tablet 5 mg PO BID Qty: 60 2RF gabapentin 100 mg tablet 100 mg PO TID diphenoxylate-atropine 2.5-0.025 mg tablet 1 tab PO BID PRN (Reason: diarrhea) 30 Days Qty: 60 3RF No Action insulin aspart U-100 [Novolog FlexPen U-100 Insulin] 100 unit/mL (3 mL) insulin pen 15 unit subcut TID Rx Instructions: They are following a sliding scale they received from the hospital insulin glargine U-300 conc [Toujeo Max U-300 SoloStar] 300 unit/mL (3 mL) insulin pen 48 unit subcut .qhs Rx Instructions: 07/10/2024-They are adjusting per patient BSG insulin aspart U-100 [Novolog FlexPen U-100 Insulin] 100 unit/mL (3 mL) insulin pen 15 unit subcut TID Rx Instructions: 07/10/2024-They are following a sliding scale they received from the hospital pregabalin [Lyrica] 50 mg capsule 50 mg PO BID PRN Rx Instructions: 07/10/2024-patient only taking PRN spironolactone 25 mg tablet 25 mg PO BID Rx Instructions: 07/10/2024-Patient is taking 1-2 times a day Discharge Orders: Discharge Order (Routine); Ordered 07/07/24 Ordered By: Mir Yanes/Other Patient Handouts: High Blood Sugar (Hyperglycemia), Hypoglycemia (Low Blood Sugar), Managing Type 2 Diabetes Admission Data Admit Date/Time: 07/06/24 14:07 Attending Provider: Mir Martin Admit Provider: Mir Martin Primary Care Provider: Bear Brooks Other Interventions: Discharge Summary Assessment (RN) Last Done: 07/07/24 10:38 Coding Level of Care Code 09646 IN/OBS DISCH 30 MIN/LESS Diagnoses Atrial fibrillation I48.91 Ischemic cardiomyopathy I25.5
[2024-07-07 11:14] VITALS: BP 100/58; PULSE 60; RESP 18; TEMP 98.2; O2SAT 95
--- NOTE | 2024-07-07 15:07 | Electrocardiogram Report ---
Test Reason : Blood Pressure : */* mmHG Vent. Rate : 61 BPM Atrial Rate : 76 BPM P-R Int : * ms QRS Dur : 130 ms QT Int : 490 ms P-R-T Axes : * -37 149 degrees QTcB Int : 493 ms Ventricular-paced rhythm Abnormal ECG When compared with ECG of 18-Apr-2024 08:50, Electronic ventricular pacemaker has replaced Atrial fibrillation Confirmed by Shaun Vazquez ([id number]) on 07/07/2024 3:07:36 PM Referred By: Shaun Vazquez Confirmed By: Shaun Vazquez
== END 2024-07-07 13:49 | disposition home or self-care (01) ==
LOC: 4W 09:38 → EP 09:38
PROC: EPB.ICD (2024-07-06 11:00)